=== PATIENT | female | born 1960 | race Caucasian/White ===

== ENCOUNTER 2018-05-28 20:09 | Inpatient (IN) ==
[2018-05-28] MEDS ORDERED: Lidocaine PF 1% Inj 30 ML Vial INFILTRATN ONE (20:43)
[2018-05-28] MEDS ORDERED: MethylPREDNISolone Sod Succinate Inj 125 MG/2 ML Vial IV.PUSH ONE (20:43)
--- NOTE | 2018-05-28 20:48 | ED ---
HPI General Chief Complaint: Extremity Injury, Lower Stated Complaint: Bilat Feet Lac Time Seen by Provider: 05/28/18 20:41 Source: patient and family () Mode of arrival: wheelchair Limitations: altered mental status History of Present Illness HPI narrative: 58-year-old female with history of lupus chronic pain syndrome hypertension depression COPD on supplemental oxygen and tobaccoism presents to the emergency department for generalized weakness with altered mental status. According to the he came from work this evening and found the on the floor she was awake with generalized weakness and then he assisted her up and into the bathroom where she had an additional fall sustaining a laceration to the anterior aspect of her left ankle. Patient reportedly takes pain medication for chronic pain syndrome. Patient reportedly has not taken additional medication beyond her baseline dosing. No alcohol consumption reportedly. No recent fever or chills. Patient has been having increasing frequency of falls. 2 's knowledge she has had no head injury. Patient here does not complain of head pain neck pain back pain abdominal pain pelvic pain but does complain of bilateral ankle and left foot pain. Patient is quite somnolent and only provide some history. states she has been having increasing weakness particularly of the bilateral upper extremities. MD complaint: Reports altered mental status, decreased responsiveness and weakness Onset (ago): minute(s) Timing confirmed by: spouse Severity: similar to previous episodes Consistency of symptoms: getting worse Context: Reports history of similar presentation, trauma (Bilateral ankles), diabetes and COPD; Denies alcohol abuse, drug abuse (is prescribed narcotic for pain management), change in medication, recent fever and seizure disorder Associated symptoms: Reports shortness of breath, weakness and difficulty walking; Denies chest pain, cough, diaphoresis, fever, chills, headaches, loss of appetite, nausea/vomiting, seizure and foul smelling urine Treatments prior to arrival: Reports other (none) Related Data Home Medications Medication Instructions Recorded Confirmed Zoloft 100 mg PO DAILY 05/28/18 05/28/18 gabapentin 100 mg PO HS 05/28/18 05/28/18 gabapentin 200 mg PO DAILY 05/28/18 05/28/18 lisinopril 10 mg PO DAILY 05/28/18 05/28/18 metformin 500 mg PO BID 05/28/18 05/28/18 oxycodone 30 mg PO Q4-6H PRN 05/28/18 05/28/18 oxycodone [OxyContin] 30 mg PO Q12H 05/28/18 05/28/18 Allergies Allergy/AdvReac Type Severity Reaction Status Date / Time penicillin G Allergy Severe UNKNOWN Verified 05/28/18 20:13 FROM CHILDHOOD Sulfa (Sulfonamide Allergy Unknown unknown Verified 05/28/18 20:13 Antibiotics) from childhood Review of Systems ROS: all other systems reviewed are negative [facility] Medical History Medical History Amputation of index finger (Acute) Diabetes (Acute) History of COPD (Acute) History of chronic back pain (Acute) History of hysterectomy (Acute) History of lupus (Acute) Knee injury (Acute) Shoulder injury (Acute) Social History Social History Substance History: No History of Abuse Second Hand Smoke Exposure: Yes Smoking Status: Current every day smoker Tobacco Type: Cigarettes How Often Do You Have a Drink Containing Alcohol: Never Recent Travel in [facility] within the Last 8 Weeks: No Recent Out of Country Travel within the Last 8 Weeks: No Immunization History Tetanus Immunization: Unsure Exam Narrative Exam Narrative: GENERAL: Well-developed well-nourished obese female somnolent with altered depressed mentation able however to answer questions appropriately and follow commands SKIN: Focused skin assessment warm/dry. HEAD: Atraumatic. Normocephalic. EYES: Pupils equal and round. No scleral icterus. No injection or drainage. ENT: No nasal bleeding or discharge. Mucous membranes pink and moist. NECK: Trachea midline. No JVD. CARDIOVASCULAR: Increased regular rate and rhythm. No murmur appreciated. RESPIRATORY: No accessory muscle use. Clear to auscultation. Breath sounds equal bilaterally. GASTROINTESTINAL: Abdomen soft, non-tender, nondistended. Hepatic and splenic margins not palpable. MUSCULOSKELETAL: No obvious deformities. No clubbing. No cyanosis. No edema. Bilateral ankle pain with mild soft tissue swelling no deformity dorsalis pedis pulses 2+ to palpation Bilaterally with capillary refill brisk and less than 2 seconds patient does however have a large left anterior ankle laceration 7.5 cm linear with visualization of the tendon but no tendon interruption distally foot is neurovascular tendon intact and patient has intact dorsi and plantar flexion. NEUROLOGICAL: Somnolent. No obvious cranial nerve deficits. Motor grossly within normal limits. Normal speech. PSYCHIATRIC: Appropriate mood and affect; insight and judgment normal. Course Initial Documented Vital Signs Temperature 98.8 F 05/28/18 20:27 Pulse Rate 102 H 05/28/18 20:27 Respiratory Rate 24 05/28/18 20:27 Blood Pressure 108/53 L 05/28/18 20:27 Pulse Oximetry 75 L 05/28/18 20:27 Last Documented Vital Signs Temperature 100.1 F H 05/29/18 03:25 Pulse Rate 78 05/29/18 03:25 Respiratory Rate 18 05/29/18 03:25 Blood Pressure 106/59 L 05/29/18 03:25 Pulse Oximetry 91 L 05/29/18 03:25 Procedures Intubation Time Out Performed: Yes Sedative: etomidate Mg Given: 20 Paralytic: succinylcholine Mg Given: 100 Laryngoscope: Jon Assist Device Used: fiber optic device ET Tube Size: 7.5 ET Tube Uncuffed: No Tube Secured Depth (cm): 22 Tube Secured Location: lips Tube Placement Confirmation: visualized tube passing through cords, equal breath sounds bilaterally, no breath sounds over epigastrium and confirmation by capnometry Patient Tolerated Procedure: well and no complications Intubation Complications: none Critical Care Time Critical Care Time: Yes Total Critical Care Time: 40 Attestation: Aggregate critical care time was 40 minutes. Time to perform other separately billable procedures was not included in the critical care time. My time did not include minutes spent treating any other patients simultaneously or on activities that did not directly contribute to the patient's treatment. The services I provided to this patient were to treat and/or prevent clinically significant deterioration that could result in: Respiratory arrest, cardiogenic shock, I provided critical care services requiring my management, as noted below: Chart data review, documentation time, medication orders and management, vital sign assessments/reviewing monitor data, ordering and reviewing lab tests, ordering and interpreting/reviewing x-rays and diagnostic studies, care of the patient and discussion of the patient with the admitting physicians. Medical Decision Making MDM Narrative Medical decision making narrative: 58-year-old female with COPD on supplemental oxygen tobaccoism hypertension diabetes anxiety depression and lupus resents with altered mentation and hypoxemia and history of chronic pain syndrome managed with opiates. Recent falls. Patient placed on school lunch monitor found to be hypoxemic placed on supplemental oxygen ABG obtained patient's GCS 14; imaging study ordered patient provide a bolus of normal saline at this point time patient appears able to protect her airway is chronically opiate dependent will defer Narcan at this time ABG ordered supplemental oxygen continued with dose of Solu-Medrol and DuoNeb nebulized treatment. Tetanus status updated. ABG obtained and patient has findings consistent with respiratory acidosis and hypoxemia as well as elevated carboxyhemoglobin this is discussed with the patient and the spouse. Patient does not want to be intubated discussed with spouse that her mentation may interfere with her decision-making but he states he would like to respect her wishes but is aware that should she not respond to alternative supplemental oxygenation that she will ultimately need intubation. EKG sinus tachycardia no acute ST elevation injury pattern or ectopy noted Patient identified to have mild leukocytosis with left shift acute renal insufficiency and troponin I is elevated at 0.77. Patient has had additional updraft treatments patient placed on BiPAP and identified to have decrease in pH with unchanged PCO2 and improved oxygenation with mild decrease in carboxyhemoglobin. Discussed with Dr Scott --accept for admission to [facility] ICU exacerbation copd with hypercapnea respiratory failure elevated troponin I cardiac risk tobacco abuse DM HTN acs/nstemi; ams hypercapnea opiate use possible abuse; acute renal insufficiency Have discussed that patient is essentially unchanged however spouse wanting to avoid intubation on 's behalf is aware that anticipate intubation inevitable ; will attempt updraft treatment and see how she responds a bit longer patient is somewhat more alert and converses intermittently single answer and short sentences with spouse. Repeat ABG ordered as tidal volumes have decreased concern for poor ventilation effort; ABG shows worsening respiratory acidosis at this time spouse is willing to acquiesce to intubation. Patient intubated with cuffed 7.5 endotracheal tube without complication. OG tube placed to intermittent low wall suction urinary catheter inserted patient sedated with propofol additional bolus of normal saline administered. Medical Screen Exam Complete: Yes Emergency Medical Condition: Yes Differential Diagnosis Differential Diagnosis: Altered mental status, hypoxemia, hypercapnia, carbon monoxide poisoning, opiate overdose, minor closed head injury, ICH, cervical spine sprain strain, central cord syndrome, sepsis, anemia, renal failure, ACS, RI, PE, ankle sprain strain subluxation dislocation fracture, neurovascular tendon injury, laceration, Medical Records Medical records reviewed: Yes I reviewed the patient's medical records. Lab Data Result diagrams: 05/28/18 20:50 05/28/18 20:50 Lab Results 05/28/18 05/28/18 05/28/18 Range/Units 20:50 20:50 20:50 CBC w Diff Slide review pending WBC 14.0 H (4.0-11.0) th/mm3 RBC 6.21 H (4.00-5.30) mil/mm3 Hgb 13.8 (11.6-15.3) gm/dL Hct 45.5 (35.0-46.0) % MCV 73.2 L (80.0-100.0) fL MCH 22.2 L (27.0-34.0) pg MCHC 30.3 L (32.0-36.0) % RDW 21.7 H (11.6-17.2) % Plt Count 402 (150-450) th/mm3 MPV 8.3 (7.0-11.0) fL Neut % (Auto) 83.2 H (16.0-70.0) % Lymph % (Auto) 6.9 L (9.0-44.0) % [place] % (Auto) 7.4 (0.0-8.0) % Eos % (Auto) 0.0 (0.0-4.0) % Baso % (Auto) 2.5 H (0.0-2.0) % Neut # (Auto) 11.6 H (1.8-7.7) th/mm3 Lymph # (Auto) 1.0 (1.0-4.8) th/mm3 [place] # (Auto) 1.0 H (0.0-0.9) th/mm3 Eos # (Auto) 0.0 (0.0-0.4) th/mm3 Baso # (Auto) 0.4 H (0.0-0.2) th/mm3 WBC Differential . Diff Scan Auto diff confirmed Differential Comment . Platelet Estimate Normal (Normal) Platelet Morphology Normal (Normal) Tear Drop Cells 1+ H (None) Ovalocytes 1+ H (None) PT 11.3 (9.8-11.6) sec INR 1.1 Ratio APTT 29.6 (24.3-30.1) sec Puncture Site Patient Temperature O2 Saturation (90-100) % ABG pH (7.380-7.420) ABG pCO2 (38-42) mmHg ABG pO2 (61-120) mmHg ABG HCO3 (22-26) mmol/L ABG O2 Content (12.0-20.0) Vol % ABG Base Excess (-2-2) mmol/L ABG Methemoglobin (0-2) % Connor Test Hemoglobin (12.0-16.0) G/DL Carboxyhemoglobin (0-4) % O2 Delivery Device Liter Flow L/M Vent Setting Inspired O2 % Critical Value Sodium 136 (136-145) meq/L Potassium 4.8 (3.5-5.1) meq/L Chloride 97 L (98-107) meq/L Carbon Dioxide 32.1 H (21.0-32.0) meq/L Anion Gap 7 (5-15) meq/L BUN 39 H (7-18) mg/dL Creatinine 2.40 H (0.50-1.00) mg/dL Estimated GFR 21 L (>89) mL/min POC Glucose (68-110) mg/dl Random Glucose 121 H (74-106) mg/dL Lactic Acid (0.4-2.0) mmol/L Calcium 8.3 L (8.5-10.1) mg/dL Magnesium 2.4 (1.5-2.5) mg/dL Total Bilirubin 0.5 (0.2-1.0) mg/dL AST 26 (15-37) U/L ALT 18 (10-53) U/L Alkaline Phosphatase 102 (45-117) U/L Ammonia (11-32) mcmol/L Total Creatine Kinase 142 (26-192) U/L Troponin I 0.77 H* (0.02-0.05) ng/mL Total Protein 7.4 (6.4-8.2) g/dL Albumin 3.2 L (3.4-5.0) g/dL TSH 0.612 (0.358-3.740) uIU/mL Urine Color (Yellw/Straw) Urine Clarity (Clear) Urine pH (5.0-8.5) Ur Specific [place] (1.002-1.035) Urine Protein (Neg-Trace) mg/dL Urine Glucose (UA) (Negative) mg/dL Urine Ketones (Negative) mg/dL Urine Occult Blood (Negative) Urine Nitrate (Negative) Urine Bilirubin (Negative) Urine Ictotest (Negative) Urine Urobilinogen (Less than 2) mg/dL Ur Leukocyte Esterase (Negative) Urine RBC (0-3) /hpf Urine WBC (0-5) /hpf Ur Squamous Epith Cells (0-5) /hpf Amorphous Sediment (None) /hpf Micro UA Comment Ur Microscopic Review Urine Culture Comments Urine Opiates Screen (Neg) Ur Barbiturates Screen (Neg) Ur Amphetamines Screen (Neg) U Benzodiazepines Scrn (Neg) Urine Cocaine Screen (Neg) U Cannabinoids Screen (Neg) Serum Alcohol Less than 3 (0-5) mg/dL 05/28/18 05/28/18 05/28/18 Range/Units 20:50 20:50 21:00 CBC w Diff WBC (4.0-11.0) th/mm3 RBC (4.00-5.30) mil/mm3 Hgb (11.6-15.3) gm/dL Hct (35.0-46.0) % MCV (80.0-100.0) fL MCH (27.0-34.0) pg MCHC (32.0-36.0) % RDW (11.6-17.2) % Plt Count (150-450) th/mm3 MPV (7.0-11.0) fL Neut % (Auto) (16.0-70.0) % Lymph % (Auto) (9.0-44.0) % [place] % (Auto) (0.0-8.0) % Eos % (Auto) (0.0-4.0) % Baso % (Auto) (0.0-2.0) % Neut # (Auto) (1.8-7.7) th/mm3 Lymph # (Auto) (1.0-4.8) th/mm3 [place] # (Auto) (0.0-0.9) th/mm3 Eos # (Auto) (0.0-0.4) th/mm3 Baso # (Auto) (0.0-0.2) th/mm3 WBC Differential Diff Scan Differential Comment Platelet Estimate (Normal) Platelet Morphology (Normal) Tear Drop Cells (None) Ovalocytes (None) PT (9.8-11.6) sec INR Ratio APTT (24.3-30.1) sec Puncture Site Right brachial Patient Temperature 98.6 O2 Saturation 77 L* (90-100) % ABG pH 7.25 L* (7.380-7.420) ABG pCO2 79 H* (38-42) mmHg ABG pO2 57 L* (61-120) mmHg ABG HCO3 34 H (22-26) mmol/L ABG O2 Content 14.4 (12.0-20.0) Vol % ABG Base Excess 6.8 H (-2-2) mmol/L ABG Methemoglobin 1.3 (0-2) % Connor Test Y Hemoglobin 13.4 (12.0-16.0) G/DL Carboxyhemoglobin 8.0 H* (0-4) % O2 Delivery Device Sm Liter Flow 6.00 L/M Vent Setting Inspired O2 % Critical Value Yes Sodium (136-145) meq/L Potassium (3.5-5.1) meq/L Chloride (98-107) meq/L Carbon Dioxide (21.0-32.0) meq/L Anion Gap (5-15) meq/L BUN (7-18) mg/dL Creatinine (0.50-1.00) mg/dL Estimated GFR (>89) mL/min POC Glucose (68-110) mg/dl Random Glucose (74-106) mg/dL Lactic Acid 1.2 (0.4-2.0) mmol/L Calcium (8.5-10.1) mg/dL Magnesium (1.5-2.5) mg/dL Total Bilirubin (0.2-1.0) mg/dL AST (15-37) U/L ALT (10-53) U/L Alkaline Phosphatase (45-117) U/L Ammonia 46 H (11-32) mcmol/L Total Creatine Kinase (26-192) U/L Troponin I (0.02-0.05) ng/mL Total Protein (6.4-8.2) g/dL Albumin (3.4-5.0) g/dL TSH (0.358-3.740) uIU/mL Urine Color (Yellw/Straw) Urine Clarity (Clear) Urine pH (5.0-8.5) Ur Specific [place] (1.002-1.035) Urine Protein (Neg-Trace) mg/dL Urine Glucose (UA) (Negative) mg/dL Urine Ketones (Negative) mg/dL Urine Occult Blood (Negative) Urine Nitrate (Negative) Urine Bilirubin (Negative) Urine Ictotest (Negative) Urine Urobilinogen (Less than 2) mg/dL Ur Leukocyte Esterase (Negative) Urine RBC (0-3) /hpf Urine WBC (0-5) /hpf Ur Squamous Epith Cells (0-5) /hpf Amorphous Sediment (None) /hpf Micro UA Comment Ur Microscopic Review Urine Culture Comments Urine Opiates Screen (Neg) Ur Barbiturates Screen (Neg) Ur Amphetamines Screen (Neg) U Benzodiazepines Scrn (Neg) Urine Cocaine Screen (Neg) U Cannabinoids Screen (Neg) Serum Alcohol (0-5) mg/dL 05/28/18 05/28/18 05/28/18 Range/Units 21:20 21:20 21:31 CBC w Diff WBC (4.0-11.0) th/mm3 RBC (4.00-5.30) mil/mm3 Hgb (11.6-15.3) gm/dL Hct (35.0-46.0) % MCV (80.0-100.0) fL MCH (27.0-34.0) pg MCHC (32.0-36.0) % RDW (11.6-17.2) % Plt Count (150-450) th/mm3 MPV (7.0-11.0) fL Neut % (Auto) (16.0-70.0) % Lymph % (Auto) (9.0-44.0) % [place] % (Auto) (0.0-8.0) % Eos % (Auto) (0.0-4.0) % Baso % (Auto) (0.0-2.0) % Neut # (Auto) (1.8-7.7) th/mm3 Lymph # (Auto) (1.0-4.8) th/mm3 [place] # (Auto) (0.0-0.9) th/mm3 Eos # (Auto) (0.0-0.4) th/mm3 Baso # (Auto) (0.0-0.2) th/mm3 WBC Differential Diff Scan Differential Comment Platelet Estimate (Normal) Platelet Morphology (Normal) Tear Drop Cells (None) Ovalocytes (None) PT (9.8-11.6) sec INR Ratio APTT (24.3-30.1) sec Puncture Site Patient Temperature O2 Saturation (90-100) % ABG pH (7.380-7.420) ABG pCO2 (38-42) mmHg ABG pO2 (61-120) mmHg ABG HCO3 (22-26) mmol/L ABG O2 Content (12.0-20.0) Vol % ABG Base Excess (-2-2) mmol/L ABG Methemoglobin (0-2) % Connor Test Hemoglobin (12.0-16.0) G/DL Carboxyhemoglobin (0-4) % O2 Delivery Device Liter Flow L/M Vent Setting Inspired O2 % Critical Value Sodium (136-145) meq/L Potassium (3.5-5.1) meq/L Chloride (98-107) meq/L Carbon Dioxide (21.0-32.0) meq/L Anion Gap (5-15) meq/L BUN (7-18) mg/dL Creatinine (0.50-1.00) mg/dL Estimated GFR (>89) mL/min POC Glucose 137 H (68-110) mg/dl Random Glucose (74-106) mg/dL Lactic Acid (0.4-2.0) mmol/L Calcium (8.5-10.1) mg/dL Magnesium (1.5-2.5) mg/dL Total Bilirubin (0.2-1.0) mg/dL AST (15-37) U/L ALT (10-53) U/L Alkaline Phosphatase (45-117) U/L Ammonia (11-32) mcmol/L Total Creatine Kinase (26-192) U/L Troponin I (0.02-0.05) ng/mL Total Protein (6.4-8.2) g/dL Albumin (3.4-5.0) g/dL TSH (0.358-3.740) uIU/mL Urine Color Yellow (Yellw/Straw) Urine Clarity Clear (Clear) Urine pH 5.0 (5.0-8.5) Ur Specific [place] Greater/equal 1.030 (1.002-1.035) Urine Protein Trace (Neg-Trace) mg/dL Urine Glucose (UA) Negative (Negative) mg/dL Urine Ketones Negative (Negative) mg/dL Urine Occult Blood Negative (Negative) Urine Nitrate Negative (Negative) Urine Bilirubin Negative (Negative) Urine Ictotest Negative (Negative) Urine Urobilinogen 1.0 (Less than 2) mg/dL Ur Leukocyte Esterase Negative (Negative) Urine RBC 0-3 (0-3) /hpf Urine WBC 0-5 (0-5) /hpf Ur Squamous Epith Cells 0-5 (0-5) /hpf Amorphous Sediment Moderate H (None) /hpf Micro UA Comment Culture not ind Ur Microscopic Review Microscopic reviewed Urine Culture Comments Culture not ind Urine Opiates Screen Pos H (Neg) Ur Barbiturates Screen Neg (Neg) Ur Amphetamines Screen Neg (Neg) U Benzodiazepines Scrn Neg (Neg) Urine Cocaine Screen Neg (Neg) U Cannabinoids Screen Neg (Neg) Serum Alcohol (0-5) mg/dL 05/28/18 05/28/18 05/28/18 Range/Units 23:00 23:30 23:30 CBC w Diff WBC (4.0-11.0) th/mm3 RBC (4.00-5.30) mil/mm3 Hgb (11.6-15.3) gm/dL Hct (35.0-46.0) % MCV (80.0-100.0) fL MCH (27.0-34.0) pg MCHC (32.0-36.0) % RDW (11.6-17.2) % Plt Count (150-450) th/mm3 MPV (7.0-11.0) fL Neut % (Auto) (16.0-70.0) % Lymph % (Auto) (9.0-44.0) % [place] % (Auto) (0.0-8.0) % Eos % (Auto) (0.0-4.0) % Baso % (Auto) (0.0-2.0) % Neut # (Auto) (1.8-7.7) th/mm3 Lymph # (Auto) (1.0-4.8) th/mm3 [place] # (Auto) (0.0-0.9) th/mm3 Eos # (Auto) (0.0-0.4) th/mm3 Baso # (Auto) (0.0-0.2) th/mm3 WBC Differential Diff Scan Differential Comment Platelet Estimate (Normal) Platelet Morphology (Normal) Tear Drop Cells (None) Ovalocytes (None) PT (9.8-11.6) sec INR Ratio APTT (24.3-30.1) sec Puncture Site Right brachial Patient Temperature 98.6 O2 Saturation 87 L* (90-100) % ABG pH 7.21 L* (7.380-7.420) ABG pCO2 78 H* (38-42) mmHg ABG pO2 81 (61-120) mmHg ABG HCO3 30 H (22-26) mmol/L ABG O2 Content 16.0 (12.0-20.0) Vol % ABG Base Excess 2.6 H (-2-2) mmol/L ABG Methemoglobin 1.2 (0-2) % Connor Test Y Hemoglobin 13.1 (12.0-16.0) G/DL Carboxyhemoglobin 7.1 H* (0-4) % O2 Delivery Device Bipap Liter Flow L/M Vent Setting Ipap12/epap5 Inspired O2 50 % Critical Value Yes Sodium (136-145) meq/L Potassium (3.5-5.1) meq/L Chloride (98-107) meq/L Carbon Dioxide (21.0-32.0) meq/L Anion Gap (5-15) meq/L BUN (7-18) mg/dL Creatinine (0.50-1.00) mg/dL Estimated GFR (>89) mL/min POC Glucose (68-110) mg/dl Random Glucose (74-106) mg/dL Lactic Acid 1.1 (0.4-2.0) mmol/L Calcium (8.5-10.1) mg/dL Magnesium (1.5-2.5) mg/dL Total Bilirubin (0.2-1.0) mg/dL AST (15-37) U/L ALT (10-53) U/L Alkaline Phosphatase (45-117) U/L Ammonia (11-32) mcmol/L Total Creatine Kinase (26-192) U/L Troponin I 0.68 H* (0.02-0.05) ng/mL Total Protein (6.4-8.2) g/dL Albumin (3.4-5.0) g/dL TSH (0.358-3.740) uIU/mL Urine Color (Yellw/Straw) Urine Clarity (Clear) Urine pH (5.0-8.5) Ur Specific [place] (1.002-1.035) Urine Protein (Neg-Trace) mg/dL Urine Glucose (UA) (Negative) mg/dL Urine Ketones (Negative) mg/dL Urine Occult Blood (Negative) Urine Nitrate (Negative) Urine Bilirubin (Negative) Urine Ictotest (Negative) Urine Urobilinogen (Less than 2) mg/dL Ur Leukocyte Esterase (Negative) Urine RBC (0-3) /hpf Urine WBC (0-5) /hpf Ur Squamous Epith Cells (0-5) /hpf Amorphous Sediment (None) /hpf Micro UA Comment Ur Microscopic Review Urine Culture Comments Urine Opiates Screen (Neg) Ur Barbiturates Screen (Neg) Ur Amphetamines Screen (Neg) U Benzodiazepines Scrn (Neg) Urine Cocaine Screen (Neg) U Cannabinoids Screen (Neg) Serum Alcohol (0-5) mg/dL 05/29/18 05/29/18 Range/Units 00:17 03:45 CBC w Diff WBC (4.0-11.0) th/mm3 RBC (4.00-5.30) mil/mm3 Hgb (11.6-15.3) gm/dL Hct (35.0-46.0) % MCV (80.0-100.0) fL MCH (27.0-34.0) pg MCHC (32.0-36.0) % RDW (11.6-17.2) % Plt Count (150-450) th/mm3 MPV (7.0-11.0) fL Neut % (Auto) (16.0-70.0) % Lymph % (Auto) (9.0-44.0) % [place] % (Auto) (0.0-8.0) % Eos % (Auto) (0.0-4.0) % Baso % (Auto) (0.0-2.0) % Neut # (Auto) (1.8-7.7) th/mm3 Lymph # (Auto) (1.0-4.8) th/mm3 [place] # (Auto) (0.0-0.9) th/mm3 Eos # (Auto) (0.0-0.4) th/mm3 Baso # (Auto) (0.0-0.2) th/mm3 WBC Differential Diff Scan Differential Comment Platelet Estimate (Normal) Platelet Morphology (Normal) Tear Drop Cells (None) Ovalocytes (None) PT (9.8-11.6) sec INR Ratio APTT (24.3-30.1) sec Puncture Site Left radial Right radial Patient Temperature 98.6 98.6 O2 Saturation 81 L* 87 L* (90-100) % ABG pH 7.14 L* 7.37 L (7.380-7.420) ABG pCO2 94 H* 47 H (38-42) mmHg ABG pO2 70 65 (61-120) mmHg ABG HCO3 30 H 27 H (22-26) mmol/L ABG O2 Content 15.1 16.1 (12.0-20.0) Vol % ABG Base Excess 1.9 1.7 (-2-2) mmol/L ABG Methemoglobin 1.2 1.4 (0-2) % Connor Test Y Present Hemoglobin 13.3 13.2 (12.0-16.0) G/DL Carboxyhemoglobin 6.4 H* 3.8 (0-4) % O2 Delivery Device Bipap Ventilator Liter Flow L/M Vent Setting Ipap12/epap5 Prvc/ac Inspired O2 50 100 % Critical Value Yes Yes Sodium (136-145) meq/L Potassium (3.5-5.1) meq/L Chloride (98-107) meq/L Carbon Dioxide (21.0-32.0) meq/L Anion Gap (5-15) meq/L BUN (7-18) mg/dL Creatinine (0.50-1.00) mg/dL Estimated GFR (>89) mL/min POC Glucose (68-110) mg/dl Random Glucose (74-106) mg/dL Lactic Acid (0.4-2.0) mmol/L Calcium (8.5-10.1) mg/dL Magnesium (1.5-2.5) mg/dL Total Bilirubin (0.2-1.0) mg/dL AST (15-37) U/L ALT (10-53) U/L Alkaline Phosphatase (45-117) U/L Ammonia (11-32) mcmol/L Total Creatine Kinase (26-192) U/L Troponin I (0.02-0.05) ng/mL Total Protein (6.4-8.2) g/dL Albumin (3.4-5.0) g/dL TSH (0.358-3.740) uIU/mL Urine Color (Yellw/Straw) Urine Clarity (Clear) Urine pH (5.0-8.5) Ur Specific [place] (1.002-1.035) Urine Protein (Neg-Trace) mg/dL Urine Glucose (UA) (Negative) mg/dL Urine Ketones (Negative) mg/dL Urine Occult Blood (Negative) Urine Nitrate (Negative) Urine Bilirubin (Negative) Urine Ictotest (Negative) Urine Urobilinogen (Less than 2) mg/dL Ur Leukocyte Esterase (Negative) Urine RBC (0-3) /hpf Urine WBC (0-5) /hpf Ur Squamous Epith Cells (0-5) /hpf Amorphous Sediment (None) /hpf Micro UA Comment Ur Microscopic Review Urine Culture Comments Urine Opiates Screen (Neg) Ur Barbiturates Screen (Neg) Ur Amphetamines Screen (Neg) U Benzodiazepines Scrn (Neg) Urine Cocaine Screen (Neg) U Cannabinoids Screen (Neg) Serum Alcohol (0-5) mg/dL Imaging Data My impression: Chest x-ray: right upper lobe infiltrate/mass with cardiomegaly mild cephalization no effusion Radiologist's impression: Cervical Spine CT 05/28/18 20:41 CONCLUSION: 1. Degenerative disc disease basically isolated C5-6 level as detailed above. 2. No fracture. Spinal canal and neural foramina appear to be adequate throughout without cord or nerve root compromise. Chest X-Ray 05/28/18 20:41 CONCLUSION: 3.5 cm possible mass in the right upper lung. Prominence in interstitial markings which may represent underlying pulmonary venous hypertension or underlying interstitial disease. Cardiomegaly. Head CT 05/28/18 20:41 CONCLUSION: Negative exam. No acute intracranial process, trauma or fracture. . Ankle X-Ray 05/28/18 20:43 CONCLUSION: No acute fracture Ankle X-Ray 05/28/18 20:43 CONCLUSION: No evidence of recent bony injury. Diffuse soft tissue prominence. Foot X-Ray 05/28/18 20:43 CONCLUSION: 1. Soft tissue defect/laceration anterior to the ankle. 2. Osseous structures are intact. Chest X-Ray 05/29/18 00:50 CONCLUSION: ET tube and NG tube in good position. Cardiomegaly. Diffuse interstitial disease. Focal density in the right upper lung. Discharge Plan Discharge Disposition Patient Disposition: 30 Still Patient Discharge Condition Condition: Fair Discharge Details Diagnosis: Respiratory failure with hypoxia and hypercapnia, COPD exacerbation, Altered mental status, Acute renal failure (ARF), ACS (acute coronary syndrome), Laceration of ankle Physicians Team ED Provider: Susie Sepulveda Primary Care Provider: Oren Robbins Attending Provider: Varun Scott Interventions Interventions: ED Discharge Assessment Last Done: 05/29/18 02:32 Vital Signs Last Done: 05/28/18 20:42 Status ED Status: Left Department Discharge Information Discharge Date/Time: 05/29/18 02:34
[2018-05-28] MEDS ORDERED: Tetanus/Diphtheria Toxoid Adult Vaccine Inj 0.5 ML Vial IM ONE (20:53)
[2018-05-28] MEDS: Sod Chloride 0.9% Inj 1,000 ML IV.CONT SCH (21:00)
[2018-05-28 21:09] LABS: Baso # (Auto) 0.4 th/mm3 (0.0-0.2); Baso % (Auto) 2.5 % (0.0-2.0); Hematocrit 45.5 % (35.0-46.0); Hemoglobin 13.8 gm/dL (11.6-15.3); Lymph % (Auto) 6.9 % (9.0-44.0); Mean Corpuscular Hemoglobin 22.2 pg (27.0-34.0); Mean Corpuscular Volume 73.2 fL (80.0-100.0); Mean Platelet Volume 8.3 fL (7.0-11.0); Mono % (Auto) 7.4 % (0.0-8.0); Neut # (Auto) 11.6 th/mm3 (1.8-7.7); Neut % (Auto) 83.2 % (16.0-70.0); Platelet Count 402 th/mm3 (150-450); Red Blood Count 6.21 mil/mm3 (4.00-5.30); Red Cell Distribution Width 21.7 % (11.6-17.2)
[2018-05-28 21:10] LABS: ABG Base Excess 6.8 mmol/L (-2-2); ABG PCO2 79 mmHg (38-42); ABG PO2 57 mmHg (61-120)
[2018-05-28 21:13] LABS: Chloride 97 meq/L (98-107); Potassium 4.8 meq/L (3.5-5.1); Sodium 136 meq/L (136-145)
[2018-05-28 21:14] LABS: Mean Corpuscular HGB Conc 30.3 % (32.0-36.0)
[2018-05-28 21:16] LABS: Albumin 3.2 g/dL (3.4-5.0); Anion Gap 7 meq/L (5-15); Calcium 8.3 mg/dL (8.5-10.1); Carbon Dioxide 32.1 meq/L (21.0-32.0); Glucose,Random 121 mg/dL (74-106); Magnesium 2.4 mg/dL (1.5-2.5)
[2018-05-28 21:17] LABS: Blood Urea Nitrogen 39 mg/dL (7-18)
[2018-05-28 21:18] LABS: Activated Partial Thrombo Time 29.6 sec (24.3-30.1); INR 1.1 Ratio; Prothrombin Time 11.3 sec (9.8-11.6)
[2018-05-28 21:19] LABS: Alanine Aminotransferase 18 U/L (10-53); Aspartate Aminotransferase 26 U/L (15-37); Glomerular Filtration Rate 21 mL/min (>89)
[2018-05-28 21:21] LABS: Total Protein 7.4 g/dL (6.4-8.2)
[2018-05-28 21:22] LABS: Alkaline Phosphatase 102 U/L (45-117); Creatine Kinase 142 U/L (26-192)
[2018-05-28] MEDS ORDERED: Lidocaine 1% Inj 50 ML Vial INFILTRATN ONE (21:27)
[2018-05-28] MEDS: Sod Chloride 0.9% Inj 1,000 ML IV.SIG SCH ×4 (21:28→23:17)
[2018-05-28 21:30] LABS: Clarity,Urine Clear (Clear); Color,Urine Yellow (Yellw/Straw); Glucose,Urine (UA) Negative (Negative); Leukocyte Esterase,Urine Negative (Negative); Nitrite,Urine Negative (Negative); Specific Gravity,Urine Greater/Equal 1.030 (1.002-1.035)
[2018-05-28 21:30] LABS: Thyroid Stimulating Hormone 0.612 uIU/mL (0.358-3.740)
[2018-05-28 21:31] LABS: Ovalocytes 1+; Platelet Estimate Normal (Normal); Platelet Morphology Normal (Normal); Tear Drop Cells 1+
[2018-05-28 21:33] LABS: Troponin I 0.77 ng/mL (0.02-0.05)
[2018-05-28 21:35] LABS: Bilirubin,Urine Negative (Negative); Ictotest,Urine Negative (Negative)
[2018-05-28 21:36] LABS: Amorphous Sediment,Urine Moderate /hpf; RBC,Urine 0-3 /hpf (0-3); Squamous Epithelial Cell,Urine 0-5 /hpf (0-5); WBC,Urine 0-5 /hpf (0-5)
[2018-05-28] MEDS ORDERED: Aspirin 300 MG Supp RECTAL ONE (21:39)
[2018-05-28 21:47] LABS: Amphetamine Screen,Urine Neg (Neg)
[2018-05-28 21:48] LABS: Barbiturate Screen,Urine Neg (Neg)
[2018-05-28 21:51] LABS: Cannabinoid Screen,Urine Neg (Neg)
[2018-05-28 21:52] LABS: Cocaine Screen,Urine Neg (Neg)
[2018-05-28 22:02] LABS: Opiate Screen,Urine Pos (Neg)
--- NOTE | 2018-05-28 22:07 | CT ---
EXAM DATE: 05/28/2018 9:32 PM EDT AGE/SEX: 58 years / Female INDICATIONS: Trauma. Altered mental status. Fall. CLINICAL DATA: This is the patient's initial encounter. Patient reports that signs and symptoms have been present for 1 day and indicates a pain score of 5/10. MEDICAL/SURGICAL HISTORY: Chronic obstructive pulmonary disease. None. RADIATION DOSE: 37.48 CTDI (mGy) ; Patient motion COMPARISON: No prior exams available for comparison. TECHNIQUE: CT of the head without contrast. Using automated exposure control and adjustment of the mA and/or kV according to patient size, radiation dose was kept as low as reasonably achievable to ob tain optimal diagnostic quality images. DICOM format image data is available electronically for revi ew and comparison. FINDINGS: Cerebrum: The ventricles are normal for age. No evidence of midline shift, mass lesion, hemorrhage or acute infarction. No extraaxial fluid collections are seen. Posterior Fossa: The cerebellum and brainstem are intact. The 4th ventricle is midline. The cerebe llopontine angle is unremarkable. Extracranial: The visualized portion of the orbits is intact. Skull: The calvaria is intact. No evidence of skull fracture. CONCLUSION: Negative exam. No acute intracranial process, trauma or fracture. . Electronically signed by: Elder Pond MD 05/28/2018 10:06 PM EDT
--- NOTE | 2018-05-28 22:12 | CT ---
EXAM DATE: 05/28/2018 9:32 PM EDT AGE/SEX: 58 years / Female INDICATIONS: Trauma. Fall. CLINICAL DATA: This is the patient's initial encounter. Patient reports that signs and symptoms have been present for 1 day and indicates a pain score of 5/10. MEDICAL/SURGICAL HISTORY: Chronic obstructive pulmonary disease. None. RADIATION DOSE: 26.52 CTDI (mGy) COMPARISON: No prior exams available for comparison. TECHNIQUE: Contiguous axial images were obtained using helical multirow detector technique. The vol umetric data was post-processed with multiplanar reconstruction in oblique axial, sagittal, and coron al planes. Using automated exposure control and adjustment of the mA and/or kV according to patient s ize, radiation dose was kept as low as reasonably achievable to obtain optimal diagnostic quality emerita ges. DICOM format image data is available electronically for review and comparison. FINDINGS: Sagittal and coronal reconstruction show degenerative disc disease predominantly at C5-6 with some lo ss of disc height and small marginal spurs. Predominantly directed anteriorly with small posterior co mponents right paracentral which encroach on the anterior epidural space but do not result in signifi cant spinal stenosis. Vertebral body heights are maintained without fracture or listhesis. C2-3: The bony spinal canal is normal in size. No evidence of disc bulge or herniation. The neural foramina are bilaterally patent. C3-4: The bony spinal canal is normal in size. No evidence of disc bulge or herniation. The neural foramina are bilaterally patent. C4-5: The bony spinal canal is normal in size. No evidence of disc bulge or herniation. The neural foramina are bilaterally patent. C5-6: Mild uncovertebral ridging with a right posterior component encroaching on the anterior epidur al space. Spinal canal and neural foramina remain adequate, however C6-7: The bony spinal canal is normal in size. No evidence of disc bulge or herniation. The neural foramina are bilaterally patent. C7-T1: The bony spinal canal is normal in size. No evidence of disc bulge or herniation. The neura l foramina are bilaterally patent. CONCLUSION: 1. Degenerative disc disease basically isolated C5-6 level as detailed above. 2. No fracture. Spinal canal and neural foramina appear to be adequate throughout without cord or ne rve root compromise. Electronically signed by: Elder Pond MD 05/28/2018 10:11 PM EDT
[2018-05-28] MEDS ORDERED: Sod Chloride 0.9% Inj 1,000 ML IV.SIG SCH (22:45)
--- NOTE | 2018-05-28 22:46 | XR ---
EXAM DATE: 05/28/2018 8:43 PM EDT AGE/SEX: 58 years / Female INDICATIONS: Laceration to anterior left ankle status post fall. CLINICAL DATA: This is the patient's initial encounter. Patient reports that signs and symptoms have been present for 1 day and indicates a pain score of Nonresponsive. MEDICAL/SURGICAL HISTORY: Non-responsive. Non-responsive. COMPARISON: [facility], FOOT LIMITED LEFT 2V, 05/28/2018. . FINDINGS: Bony structures are intact and in normal alignment. Joints are intact without dislocation or signifi cant arthropathy. Osseous density is normal. Soft tissues are unremarkable. No radiopaque foreign bodies seen. CONCLUSION: No acute fracture Electronically signed by: Elder Pond MD 05/28/2018 10:45 PM EDT
--- NOTE | 2018-05-28 22:47 | ED ---
Procedures Laceration Laceration 1: Site: lower extremity Side (If applicable): left Size (cm): 8 Description: linear Depth: simple, single layer (tendon exposed; no tendon laceration) Anesthetic used: lidocaine 1% Anesthesia technique:: local infiltration Amount (mL): 10 Pre-repair:: wound explored and irrigated extensively Skin layer closed with: prolene Size (cm): 3-0 Number of sutures:: 12 Technique:: simple, interrupted (7) and other (5 vertical mattress sutures )
--- NOTE | 2018-05-28 22:47 | XR ---
EXAM DATE: 05/28/2018 8:43 PM EDT AGE/SEX: 58 years / Female INDICATIONS: Right ankle pain status post fall. CLINICAL DATA: This is the patient's initial encounter. Patient reports that signs and symptoms have been present for 1 day and indicates a pain score of Nonresponsive. MEDICAL/SURGICAL HISTORY: Non-responsive. Non-responsive. COMPARISON: No prior exams available for comparison. FINDINGS: Bony structures are intact and in normal alignment. Joints are intact without dislocation or signifi cant arthropathy. Osseous density is normal. Diffuse soft tissue prominence. No radiopaque foreign bodies seen. CONCLUSION: No evidence of recent bony injury. Diffuse soft tissue prominence. Electronically signed by: Elder Pond MD 05/28/2018 10:45 PM EDT
--- NOTE | 2018-05-28 23:03 | XR ---
EXAM DATE: 05/28/2018 8:41 PM EDT AGE/SEX: 58 years / Female INDICATIONS: Shortness of breath status post fall. CLINICAL DATA: This is the patient's initial encounter. Patient reports that signs and symptoms have been present for 1 day and indicates a pain score of Nonresponsive. MEDICAL/SURGICAL HISTORY: Non-responsive. Non-responsive. COMPARISON: No prior exams available for comparison. FINDINGS: The heart size is enlarged. There is a 3.5 cm suspected mass in the right upper lung. There is diffus e prominence of interstitium. No effusion is seen. CONCLUSION: 3.5 cm possible mass in the right upper lung. Prominence in interstitial markings which may represent underlying pulmonary venous hypertension or u nderlying interstitial disease. Cardiomegaly. Electronically signed by: Ian Brewer MD 05/28/2018 11:01 PM EDT
--- NOTE | 2018-05-28 23:07 | XR ---
EXAM DATE: 05/28/2018 8:43 PM EDT AGE/SEX: 58 years / Female INDICATIONS: Laceration to proximal left foot on dorsal surface status post fall. CLINICAL DATA: This is the patient's initial encounter. Patient reports that signs and symptoms have been present for 1 day and indicates a pain score of Nonresponsive. MEDICAL/SURGICAL HISTORY: Non-responsive. Non-responsive. COMPARISON: [facility], ANKLE COMPLETE LEFT MIN 3V, 05/28/2018. . FINDINGS: Bony structures are intact and in normal alignment. Osseous density is normal. Soft tissue defect marcy ntified tissues anterior to the ankle. No radiopaque foreign bodies seen. CONCLUSION: 1. Soft tissue defect/laceration anterior to the ankle. 2. Osseous structures are intact. Electronically signed by: Elder Pond MD 05/28/2018 11:06 PM EDT
[2018-05-28 23:14] LABS: ABG Base Excess 2.6 mmol/L (-2-2); ABG PCO2 78 mmHg (38-42); ABG PO2 81 mmHg (61-120)
[2018-05-28] MEDS ORDERED: Heparin Drip 25,000 UNIT/250 ML BAG IV.CONT PRN (23:15)
[2018-05-28] MEDS ORDERED: Heparin 10,000 UNITS/10 ML Vial (for IV use) IV.PUSH STA (23:15)
--- NOTE | 2018-05-28 23:21 | P.HPCC ---
History of Present Illness Primary Care Physician: Oren Robbins MD History of Present Illness: 58-year-old female with history of lupus, chronic pain syndrome, hypertension, depression, COPD on supplemental oxygen and tobaccoism, presents for an evaluation of generalized weakness with altered mental status. According to the he came from work this evening and found the on the floor. She was awake with generalized weakness and then he assisted her up and into the bathroom where she had an additional fall sustaining a laceration to the anterior aspect of her left ankle. Patient reportedly takes pain medication for chronic pain syndrome. Patient reportedly has not taken additional medication beyond her baseline dosing. No alcohol consumption reportedly. No recent fever or chills. Patient has been having increasing frequency of falls. 2 's knowledge she has had no head injury. Patient in the emergency department at [place] did not complain of head pain neck pain back pain abdominal pain pelvic pain complain of bilateral ankle and left foot pain. She was initially placed on BiPAP, however due to worsening respiratory acidosis she was intubated by ED attending for respiratory failure. Review of Systems unobtainable due to endotracheal tube PMFSH - History History Provided By: Patient - Medical History Medical History: Medical History (Last Updated 05/28/18 @ 23:50 by Prachi Bledsoe RN) Amputation of index finger Diabetes History of COPD History of chronic back pain History of hysterectomy History of lupus Knee injury Shoulder injury - Tobacco History Second Hand Smoke Exposure: Yes Tobacco Use In Past 30 Days: Yes Smoking Status: Current every day smoker Tobacco Type: Cigarettes - Alcohol History How Often Do You Have a Drink Containing Alcohol: Never - Substance Use History Substance History: No History of Abuse - Travel History Recent Travel in the [place] Within the Last 8 Weeks: No Recent Travel Out of the Country Within the Last 8 Weeks: No - Immunization History Tetanus Immunization: Unsure Medications and Allergies Active Medications: Current Medications Acetaminophen (Tylenol) 650 mg PO Q6H PRN PRN Reason: PAIN 1-10 AND/OR FEVER >101F Al Hydroxide/Mg Hydroxide (Milk Of Magnesia Liq) 30 ml PO Q12H PRN PRN Reason: Mild Constipation Albuterol (Duoneb Neb (Prn)) 1 ampul NEB Q2HR NEB PRN PRN Reason: WHEEZING Albuterol (Duoneb Neb (Billie)) 1 ampul NEB Q4HR NEB BILLIE Last Admin: 05/29/18 04:33 Dose: 1 ampul Bisacodyl (Dulcolax Supp) 10 mg RECTAL DAILY PRN PRN Reason: SEVERE CONSITIPATION Chlorhexidine Gluconate (Chlorhexidine 2% Cloth) 3 pack TOPICAL DAILY@0400 PRN PRN Reason: Extra cloth needed Stop: 06/03/18 03:59 Chlorhexidine Gluconate (Chlorhexidine 2% Cloth) 3 pack TOPICAL DAILY@0400 BILLIE Stop: 06/03/18 03:59 Last Admin: 05/29/18 03:55 Dose: 3 pack Famotidine (Pepcid Pf Inj) 20 mg IV.PUSH Q12HR BILLIE Gabapentin (Neurontin) 100 mg PO HS BILLIE Gabapentin (Neurontin) 200 mg PO DAILY BILLIE Heparin Sodium (Porcine) (Heparin Inj) 5,000 units SQ Q8H [facility] Last Admin: 05/29/18 02:45 Dose: Not Given Sodium Chloride (Ns Inj) 1,000 mls @ 125 mls/hr IV.CONT .Q8H [facility] Last Admin: 05/28/18 21:00 Dose: 125 mls/hr Sodium Chloride (Ns Inj) 1,000 mls @ 0 mls/hr IV.SIG BOLUS [facility] Last Infusion: 05/28/18 23:11 Dose: Infused Sodium Chloride (Ns Inj) 1,000 mls @ 0 mls/hr IV.SIG BOLUS BILLIE Sodium Chloride (Ns Inj) 1,000 mls @ 0 mls/hr IV.SIG BOLUS [facility] Last Admin: 05/28/18 23:17 Dose: 999 mls/hr Propofol (Diprivan 1000 Mg/100 Ml Inj) 1,000 mg in 100 mls @ 2.94 mls/hr IV.CONT TITRATE PRN; Protocol PRN Reason: Per Protocol Last Titration: 05/29/18 01:23 Dose: 10 mcg/kg/min, 5.88 mls/hr Sodium Chloride (Ns Inj) 1,000 mls @ 0 mls/hr IV.SIG BOLUS [facility] Last Admin: 05/29/18 01:21 Dose: 999 mls/hr Dopamine HCl/Dextrose (Dopamine 800 Mg/500 Ml Premix) 800 mg in 500 mls @ 11.025 mls/hr IV.CONT TITRATE PRN; Protocol PRN Reason: Per Protocol Lactulose (Lactulose Liq) 30 ml PO DAILY PRN PRN Reason: SEVERE CONSITIPATION Lisinopril (Prinivil) 10 mg PO DAILY [facility] Methylprednisolone Sodium Succinate (Solumedrol Inj) 40 mg IV.PUSH Q8HR [facility] Last Admin: 05/29/18 03:54 Dose: 40 mg Ondansetron HCl (Zofran Inj) 4 mg IV.PUSH Q6H PRN PRN Reason: NAUSEA OR VOMITING Oxycodone HCl (Roxicodone) 30 mg PO Q4H PRN PRN Reason: BREAKTHROUGH PAIN Oxycodone HCl (Oxycontin Cr) 30 mg PO BID [facility] Senna/Docusate Sodium (Thao-Colace) 1 tab PO BID [facility] Sennosides (Senokot) 17.2 mg PO Q12H PRN PRN Reason: Moderate Constipation Sertraline HCl (Zoloft) 100 mg PO DAILY [facility] Sodium Chloride (Ns Flush) 2 ml IV.FLUSH PRN PRN PRN Reason: FLUSH AFTER USING IV ACCESS Sodium Chloride (Ns Flush) 2 ml IV.FLUSH BID [facility] Sodium Chloride (Ns Flush) 2 ml IV.FLUSH PRN PRN PRN Reason: FLUSH AFTER USING IV ACCESS Terbutaline Sulfate (Brethine Inj) 1 mg SQ ONCE PRN PRN Reason: Extravasation Allergies Allergy/AdvReac Type Severity Reaction Status Date / Time penicillin G Allergy Severe UNKNOWN Verified 05/28/18 20:13 FROM CHILDHOOD Sulfa (Sulfonamide Allergy Unknown unknown Verified 05/28/18 20:13 Antibiotics) from childhood Home Medications Medication Instructions Recorded Confirmed Type Zoloft 100 mg PO DAILY 05/28/18 05/28/18 History gabapentin 100 mg PO HS 05/28/18 05/28/18 History gabapentin 200 mg PO DAILY 05/28/18 05/28/18 History lisinopril 10 mg PO DAILY 05/28/18 05/28/18 History metformin 500 mg PO BID 05/28/18 05/28/18 History oxycodone 30 mg PO Q4-6H PRN 05/28/18 05/28/18 History oxycodone [OxyContin] 30 mg PO Q12H 05/28/18 05/28/18 History Results - Labs CBC & Chem 7: 05/29/18 04:01 05/28/18 20:50 Labs: Short CBC 05/28/18 Range/Units 20:50 WBC 14.0 H (4.0-11.0) th/mm3 Hgb 13.8 (11.6-15.3) gm/dL Hct 45.5 (35.0-46.0) % Plt Count 402 (150-450) th/mm3 [facility] 05/28/18 20:50 Sodium 136 Potassium 4.8 Chloride 97 L Carbon Dioxide 32.1 H BUN 39 H Creatinine 2.40 H Calcium 8.3 L Cardiac Enzymes 05/28/18 Range/Units 20:50 Total Creatine Kinase 142 (26-192) U/L Troponin I 0.77 H* (0.02-0.05) ng/mL Liver Function 05/28/18 Range/Units 20:50 Total Bilirubin 0.5 (0.2-1.0) mg/dL AST 26 (15-37) U/L ALT 18 (10-53) U/L Alkaline Phosphatase 102 (45-117) U/L Albumin 3.2 L (3.4-5.0) g/dL Urine 05/28/18 Range/Units 21:20 Urine Color Yellow (Yellw/Straw) Urine Clarity Clear (Clear) Urine pH 5.0 (5.0-8.5) Ur Specific [place] Greater/equal 1.030 (1.002-1.035) Urine Protein Trace (Neg-Trace) mg/dL Urine Glucose (UA) Negative (Negative) mg/dL - Imaging Impressions Cervical Spine CT 05/28/18 20:41 CONCLUSION: 1. Degenerative disc disease basically isolated C5-6 level as detailed above. 2. No fracture. Spinal canal and neural foramina appear to be adequate throughout without cord or nerve root compromise. Chest X-Ray 05/28/18 20:41 CONCLUSION: 3.5 cm possible mass in the right upper lung. Prominence in interstitial markings which may represent underlying pulmonary venous hypertension or underlying interstitial disease. Cardiomegaly. Head CT 05/28/18 20:41 CONCLUSION: Negative exam. No acute intracranial process, trauma or fracture. . Ankle X-Ray 05/28/18 20:43 CONCLUSION: No acute fracture Ankle X-Ray 05/28/18 20:43 CONCLUSION: No evidence of recent bony injury. Diffuse soft tissue prominence. Foot X-Ray 05/28/18 20:43 CONCLUSION: 1. Soft tissue defect/laceration anterior to the ankle. 2. Osseous structures are intact. Exam Vital signs: Vital Signs 05/28/18 20:27 05/28/18 20:42 05/28/18 20:49 Temperature 98.8 F Pulse Rate 102 H 103 H 106 H Respiratory Rate 24 30 H 30 H Blood Pressure 108/53 L 96/54 L 96/54 L Pulse Oximetry 75 L 90 L 90 L 05/28/18 21:10 05/28/18 21:30 05/28/18 21:49 Temperature Pulse Rate 103 H 100 H 103 H Respiratory Rate 30 H 26 H Blood Pressure 84/53 L Pulse Oximetry 88 L 90 L 05/28/18 22:00 05/28/18 22:28 05/28/18 22:40 Temperature Pulse Rate 99 H 86 Respiratory Rate 28 H 15 Blood Pressure 88/55 L 105/62 Pulse Oximetry 89 L 94 L Intake & Output 05/28/18 05/28/18 05/29/18 06:59 18:59 06:59 Intake Total 3000 / 3000 Balance 3000 / 3000 Weight 98 kg Intake: IV 3000 / 3000 NS Inj 1,000 ML @ Wide Open IV. 3000 / 3000 SIG BOLUS BILLIE Rx#:[id number] - Constitutional moderate distress - Routine HEENT Exam Head: Present: normocephalic, atraumatic Eye: Present: PERRL, normal accommodation ENT: Present: mucous membranes moist - Routine Neck Exam Present: supple. Absent: JVD, carotid bruit - Routine Respiratory Exam Present: patient mechanically ventilated, rhonchi, wheezes. Absent: stridor, crackles - Routine Cardiovascular Exam Present: RRR, S1, S2 - Routine Abdominal Exam Present: soft, normoactive bowel sounds. Absent: tenderness, distended - Routine Extremities Exam Absent: cyanosis, clubbing - Routine Skin Exam Absent: cyanosis, erythema - Routine Neurological Exam Present: moving all extremities Septic Shock Reassessment Septic shock perfusion: reassessment completed Caprini VTE Risk Assessment Caprini VTE Risk Assessment: Moderate/High Risk (score >= 2) Caprini Risk Assessment Model: Point Value = 1 Point Value = 2 Point Value = 3 Point Value = 5 Age 41-60 Minor surgery BMI > 25 kg/m2 Swollen legs Varicose veins or History of unexplained or recurrent spontaneous Oral contraceptives or hormone replacement Sepsis (< 1 month) Serious lung disease, including pneumonia (< 1 month) Abnormal pulmonary function Acute myocardial infarction Congestive heart failure (< 1 month) History of inflammatory bowel disease Medical patient at bed rest Age 61-74 Arthroscopic surgery Major open surgery (> 45 min) Laparoscopic surgery (> 45 min) Malignancy Confined to bed (> 72 hours) Immobilizing plaster cast Central venous access Age >= 75 History of VTE Family history of VTE Factor V Leiden Prothrombin [id number] Lupus anticoagulant Anticardiolipin antibodies Elevated serum homocysteine Heparin-induced thrombocytopenia Other congenital or acquired thrombophilia Stroke (< 1 month) Elective arthroplasty Hip, pelvis, or leg fracture Acute spinal cord injury (< 1 month) Prophylaxis Regimen: Total Risk Factor Score Risk Level Prophylaxis Regimen 0-1 Low Early ambulation 2 Moderate Order ONE of the following: *Sequential Compression Device (SCD) *Heparin 5000 units SQ BID 3-4 Higher Order ONE of the following medications: *Heparin 5000 units SQ TID *Enoxaparin/Lovenox 40 mg SQ daily (WT < 150 kg, CrCl > 30 mL/min) *Enoxaparin/Lovenox 30 mg SQ daily (WT < 150 kg, CrCl > 10-29 mL/min) *Enoxaparin/Lovenox 30 mg SQ BID (WT < 150 kg, CrCl > 30 mL/min) AND/OR *Sequential Compression Device (SCD) 5 or more Highest Order ONE of the following medications: *Heparin 5000 units SQ TID (Preferred with Epidurals) *Enoxaparin/Lovenox 40 mg SQ daily (WT < 150 kg, CrCl > 30 mL/min) *Enoxaparin/Lovenox 30 mg SQ daily (WT < 150 kg, CrCl > 10-29 mL/min) *Enoxaparin/Lovenox 30 mg SQ BID (WT < 150 kg, CrCl > 30 mL/min) AND *Sequential Compression Device (SCD) Assessment and Plan - Assessment and Plan Plan: Respiratory failure -COPD exacerbation -DuoNeb scheduled and as needed -IV antibiotics -IV steroids -Vent bundle Diabetes -Insulin sliding scale -Glucerna tube feeds -Levemir daily Chronic back pain -Gabapentin -Home meds as needed DVT GI prophylaxis -Teds SCDs -Subcu heparin -Pepcid 35 minutes of critical care
[2018-05-28] MEDS ORDERED: Bisacodyl 10 MG Supp RECTAL PRN (23:40)
[2018-05-28] MEDS ORDERED: Acetaminophen 325 MG Tablet PO PRN (23:40)
[2018-05-29] MEDS ORDERED: oxyCODONE 10 MG Controlled Release Tablet PO SCH
[2018-05-29 00:29] LABS: ABG Base Excess 1.9 mmol/L (-2-2); ABG PCO2 94 mmHg (38-42); ABG PO2 70 mmHg (61-120)
[2018-05-29] MEDS ORDERED: Succinylcholine Inj 100 MG/5 ML Syringe IV.PUSH ONE (00:33)
[2018-05-29] MEDS ORDERED: Etomidate Inj 20 MG/10 ML Ampul IV.PUSH ONE ×2 (00:33→00:37)
[2018-05-29] MEDS ORDERED: Propofol 1000 mg/100 ml Inj 1,000 MG/100 ML BOTTLE ONE (00:37)
[2018-05-29] MEDS ORDERED: Midazolam Inj 5 MG/ML 1 ML Vial IV.PUSH ONE ×2 (00:56→01:51)
[2018-05-29] MEDS ORDERED: Sod Chloride 0.9% Inj 1,000 ML IV.SIG SCH (01:00)
[2018-05-29] MEDS: Propofol 1000 mg/100 ml Inj 1,000 MG/100 ML BOTTLE IV.CONT PRN ×6 (01:19→21:58)
[2018-05-29] MEDS ORDERED: Pantoprazole Inj 40 MG Vial IV.PUSH ONE (01:36)
[2018-05-29] MEDS ORDERED: fentaNYL 10 mcg/mL Premix Drip 2,500 MCG/250 ML BAG IV.SIG PRN (01:36)
--- NOTE | 2018-05-29 01:39 | XR ---
EXAM DATE: 05/29/2018 12:50 AM EDT AGE/SEX: 58 years / Female INDICATIONS: Status post ET tube placement. CLINICAL DATA: This is the patient's subsequent encounter. Patient reports that signs and symptoms h ave been present for 1 day and indicates a pain score of Nonresponsive. MEDICAL/SURGICAL HISTORY: Non-responsive. Non-responsive. COMPARISON: [facility], CHEST 1V SINGLE AP, 05/28/2018. . FINDINGS: The ET tube and NG tube are well placed. The patient is rotated towards the right. The heart size is enlarged. Lungs demonstrate diffuse increased interstitial markings. Again noted is the density in th e right upper lung. CONCLUSION: ET tube and NG tube in good position. Cardiomegaly. Diffuse interstitial disease. Focal density in the right upper lung. Electronically signed by: Ian Brewer MD 05/29/2018 1:38 AM EDT
[2018-05-29] MEDS ORDERED: DOPamine 800 MG/500 ML Premix 800 MG/500 ML PLAST..BAG IV.CONT PRN (01:40)
[2018-05-29] MEDS: Heparin - SQ 10,000 UNITS/ML Vial SQ SCH ×3 (02:45→15:37)
[2018-05-29] MEDS: MethylPREDNISolone Sod Succinate Inj 40 MG/ML Vial IV.PUSH SCH ×4 (03:54→21:56)
[2018-05-29] MEDS: Chlorhexidine Gluconate 2% 1 Pack (2 Cloths) TOPICAL SCH (03:55)
[2018-05-29] MEDS ORDERED: Chlorhexidine Gluconate 2% 1 Pack (2 Cloths) TOPICAL PRN (04:00)
[2018-05-29 04:07] LABS: ABG Base Excess 1.7 mmol/L (-2-2); ABG PCO2 47 mmHg (38-42); ABG PO2 65 mmHG (61-120)
[2018-05-29 04:45] LABS: Baso % (Auto) 0.2 % (0.0-2.0); Hematocrit 46.6 % (35.0-46.0); Hemoglobin 13.3 gm/dL (11.6-15.3); Lymph # (Auto) 0.2 th/mm3 (1.0-4.8); Lymph % (Auto) 1.9 % (9.0-44.0); Mean Corpuscular Hemoglobin 21.3 pg (27.0-34.0); Mean Platelet Volume 8.6 fL (7.0-11.0); Mono # (Auto) 0.3 th/mm3 (0.0-0.9); Mono % (Auto) 2.1 % (0.0-8.0); Neut # (Auto) 12.1 th/mm3 (1.8-7.7); Neut % (Auto) 95.8 % (16.0-70.0); Platelet Count 301 th/mm3 (150-450); Red Blood Count 6.22 mil/mm3 (4.00-5.30); Red Cell Distribution Width 22.1 % (11.6-17.2); White Blood Count 12.6 th/mm3 (4.0-11.0)
[2018-05-29 04:47] LABS: Mean Corpuscular HGB Conc 28.4 % (32.0-36.0)
[2018-05-29] MEDS: Sod Chloride 0.9% Inj 1,000 ML IV.CONT SCH ×2 (04:49→17:00)
[2018-05-29 04:50] LABS: Activated Partial Thrombo Time 29.5 sec (24.3-30.1); INR 1.2 Ratio
[2018-05-29 05:05] LABS: Albumin 2.8 g/dL (3.4-5.0); Anion Gap 7 meq/L (5-15); Aspartate Aminotransferase 19 U/L (15-37); Blood Urea Nitrogen 37 mg/dL (7-18); Calcium 7.9 mg/dL (8.5-10.1); Carbon Dioxide 28.1 meq/L (21.0-32.0); Chloride 103 meq/L (98-107); Glomerular Filtration Rate 25 mL/min (>89); Glucose,Random 118 mg/dL (74-106); Magnesium 1.9 mg/dL (1.5-2.5); Potassium 5.1 meq/L (3.5-5.1); Sodium 138 meq/L (136-145)
[2018-05-29 05:06] LABS: Alanine Aminotransferase 19 U/L (10-53); Phosphorus 4.2 mg/dL (2.5-4.9)
[2018-05-29 05:10] LABS: Alkaline Phosphatase 95 U/L (45-117)
--- NOTE | 2018-05-29 06:40 | ECG ---
Date Performed: 05/28/2018 Time Performed: 21:10:31 PTAGE: 58 years EKG: SINUS TACHYCARDIA RIGHT ATRIAL ENLARGEMENT LEFT ATRIAL ENLARGEMENT ABNORMAL ECG probably N o significant change from prior electrocardiogram. . PREVIOUS TRACING : 02/04/2015 23.39 DOCTOR: Peter King Interpretating Date/Time 05/29/2018 06:36:50
[2018-05-29 06:54] LABS: ABG Base Excess 1.1 mmol/L (-2-2); ABG PCO2 46 mmHg (38-42); ABG PO2 67 mmHG (61-120)
[2018-05-29] MEDS ORDERED: Epoprostenol (30,000/mL) Neb 75 ML in Sodium Chlor 0.9% Inj 25 ML NEB SCH (08:00)
--- NOTE | 2018-05-29 08:18 | ECG ---
Date Performed: 05/29/2018 Time Performed: 05:41:58 PTAGE: 58 years EKG: Sinus rhythm Normal ECG No significant change from prior electrocardiogram. PREVIOUS TRACING : 05/28/2018 21.10 DOCTOR: Peter King Interpretating Date/Time 05/29/2018 08:17:28
[2018-05-29 10:20] LABS: ABG Base Excess 1.6 mmol/L (-2-2); ABG PCO2 32 mmHg (38-42); ABG PO2 64 mmHG (61-120)
[2018-05-29] MEDS: Gabapentin 100 MG Capsule PO SCH ×2 (10:20→21:56)
[2018-05-29] MEDS: Senna/Docusate Sodium 8.6/50 MG Tablet PO SCH ×2 (10:21→21:57)
[2018-05-29] MEDS: Lisinopril 10 MG Tablet PO SCH (10:21)
[2018-05-29] MEDS: Famotidine PF Inj 20 MG/2 ML Vial IV.PUSH SCH ×2 (10:22→21:56)
[2018-05-29] MEDS: oxyCODONE 10 MG Controlled Release Tablet PO SCH ×2 (12:45→21:57)
[2018-05-29] MEDS: Sertraline 100 MG Tablet PO SCH (12:50)
[2018-05-29] MEDS ORDERED: Epoprostenol (30,000/mL) Neb 60 ML in Sodium Chlor 0.9% Inj 40 ML NEB SCH (16:00)
--- NOTE | 2018-05-29 17:35 | P.PNCC ---
Subjective Subjective Remarks/Hospital Course: 05/28: 58-year-old female with history of lupus, chronic pain syndrome, hypertension, depression, COPD on supplemental oxygen and tobaccoism, presents for an evaluation of generalized weakness with altered mental status. According to the he came from work this evening and found the on the floor. She was awake with generalized weakness and then he assisted her up and into the bathroom where she had an additional fall sustaining a laceration to the anterior aspect of her left ankle. Patient reportedly takes pain medication for chronic pain syndrome. Patient reportedly has not taken additional medication beyond her baseline dosing. No alcohol consumption reportedly. No recent fever or chills. Patient has been having increasing frequency of falls. 2 's knowledge she has had no head injury. Patient in the emergency department at [place] did not complain of head pain neck pain back pain abdominal pain pelvic pain complain of bilateral ankle and left foot pain. She was initially placed on BiPAP, however due to worsening respiratory acidosis she was intubated by ED attending for respiratory failure. 05/29: Remains sedated, orally intubated on mechanical ventilation. PEEP increased to +14 Objective Vital Signs / I&O: Vital Signs 05/28/18 20:27 05/28/18 20:42 05/28/18 20:49 Temperature 98.8 F Pulse Rate 102 H 103 H 106 H Respiratory Rate 24 30 H 30 H Blood Pressure 108/53 L 96/54 L 96/54 L Pulse Oximetry 75 L 90 L 90 L 05/28/18 21:10 05/28/18 21:30 05/28/18 21:49 Temperature Pulse Rate 103 H 100 H 103 H Respiratory Rate 30 H 26 H Blood Pressure 84/53 L Pulse Oximetry 88 L 90 L 05/28/18 22:00 05/28/18 22:28 05/28/18 22:30 Temperature Pulse Rate 99 H Respiratory Rate 28 H Blood Pressure 88/55 L Pulse Oximetry 89 L 94 L 98 05/28/18 22:35 05/28/18 22:40 05/28/18 22:45 Temperature Pulse Rate 108 H 86 Respiratory Rate 14 15 Blood Pressure 105/62 Pulse Oximetry 98 95 05/28/18 23:00 05/28/18 23:23 05/28/18 23:25 Temperature Pulse Rate 92 H 95 H 95 H Respiratory Rate 18 15 14 Blood Pressure 108/64 116/74 Pulse Oximetry 91 L 05/28/18 23:39 05/28/18 23:40 05/29/18 00:45 Temperature Pulse Rate 93 H 75 118 H Respiratory Rate 15 16 18 Blood Pressure 114/69 88/50 L 113/52 L Pulse Oximetry 98 05/29/18 00:54 05/29/18 01:00 05/29/18 01:15 Temperature Pulse Rate 72 104 H 85 Respiratory Rate 19 18 18 Blood Pressure 89/50 L 136/72 82/57 L Pulse Oximetry 95 05/29/18 01:30 05/29/18 02:22 05/29/18 03:15 Temperature Pulse Rate 82 75 Respiratory Rate 18 18 18 Blood Pressure 100/66 90/50 L Pulse Oximetry 96 05/29/18 03:25 05/29/18 03:30 05/29/18 04:34 Temperature 100.1 F H Pulse Rate 78 76 79 Respiratory Rate 18 18 Blood Pressure 106/59 L Pulse Oximetry 91 L 05/29/18 07:00 05/29/18 08:00 05/29/18 08:10 Temperature 100.4 F H Pulse Rate 78 78 Respiratory Rate 18 18 Blood Pressure 110/58 L Pulse Oximetry 91 L 91 L 05/29/18 08:50 05/29/18 09:05 05/29/18 11:00 Temperature 100.2 F H Pulse Rate 80 Respiratory Rate 18 Blood Pressure 117/62 Pulse Oximetry 91 L 95 05/29/18 12:36 05/29/18 12:44 05/29/18 15:00 Temperature 100.7 F H Pulse Rate 83 89 Respiratory Rate 18 19 Blood Pressure 127/66 Pulse Oximetry 94 L 05/29/18 16:07 Temperature Pulse Rate 87 Respiratory Rate 18 Blood Pressure Pulse Oximetry Intake & Output 05/28/18 05/29/18 05/29/18 18:59 06:59 18:59 Intake Total 4150 / 4150 3300 / 3300 Output Total 1190 / 1190 Balance 2960 / 2960 3300 / 3300 Weight 102.5 kg 102.5 kg Intake: IV 4150 / 4150 3300 / 3300 Diprivan 1000 mg/100 ml Inj 1, 300 / 300 000 mg In 100 ml @ 5 MCG/KG/MIN 2.94 mls/hr IV.CONT TITRATE PRN Rx#:[id number] NS Inj 1,000 ML @ 125 mls/hr IV 1000 / 1000 1000 / 1000 .CONT .Q8H BILL Rx#:[id number] Levaquin 750 mg Premix Inj 150 150 / 150 ML @ 100 mls/hr IV.SIG ONCE ONE Rx#:[id number] NS Inj 1,000 ML @ Wide Open IV. 3000 / 3000 2000 / 2000 SIG BOLUS BILL Rx#:[id number] Output: Urine Amount (Catheter) 690 / 690 Indwelling Urethral Catheter 690 / 690 Gastric Drainage 500 / 500 Oral Orogastric Tube 500 / 500 Other: Weight On Admission 102.5 kg Result Diagrams: 05/29/18 04:01 05/29/18 04:01 Imaging: Cervical Spine CT 05/28/18 20:41 CONCLUSION: 1. Degenerative disc disease basically isolated C5-6 level as detailed above. 2. No fracture. Spinal canal and neural foramina appear to be adequate throughout without cord or nerve root compromise. Chest X-Ray 05/28/18 20:41 CONCLUSION: 3.5 cm possible mass in the right upper lung. Prominence in interstitial markings which may represent underlying pulmonary venous hypertension or underlying interstitial disease. Cardiomegaly. Head CT 05/28/18 20:41 CONCLUSION: Negative exam. No acute intracranial process, trauma or fracture. . Ankle X-Ray 05/28/18 20:43 CONCLUSION: No acute fracture Ankle X-Ray 05/28/18 20:43 CONCLUSION: No evidence of recent bony injury. Diffuse soft tissue prominence. Foot X-Ray 05/28/18 20:43 CONCLUSION: 1. Soft tissue defect/laceration anterior to the ankle. 2. Osseous structures are intact. Chest X-Ray 05/29/18 00:50 CONCLUSION: ET tube and NG tube in good position. Cardiomegaly. Diffuse interstitial disease. Focal density in the right upper lung. Objective Remarks: HEENT/ Neuro: Sedated, orally intubated, Pallor present, no icterus, tongue/ mucosa moist Neck: No JVD Chest/Pulm: on mech vent, good air entry bilaterally, scattered rhonchi bilaterally, no wheezing or crackles CVS: S1-S2 regular, no murmur GI/abdomen: soft, nontender, bowel sounds sluggish Extremities: warm bilaterally, no edema Assessment and Plan - Assessment and Plan Plan: Acute respiratory failure -COPD exacerbation -DuoNeb scheduled and as needed -IV antibiotics -IV steroids -Continue mechanical ventilation, PEEP increased to +14, titrate FiO2 to keep O2 sat greater than 90%. Inhaled Flolan if needed. -Pulmonary consult requested for further evaluation of right upper lobe density- most likely pneumonia. Follow-up CT chest. -Vent bundle Sepsis/pneumonia -Continue antibiotics. Check sputum Gram stain and cultures. Nasal washings for influenza a and B. CT chest without contrast for further evaluation of right upper lobe density. ID consult Diabetes -Insulin sliding scale -Glucerna tube feeds -Levemir daily Chronic back pain -Gabapentin -Home meds as needed DVT GI prophylaxis -Teds SCDs -Subcu heparin -Pepcid 35 minutes of critical care
--- NOTE | 2018-05-29 18:18 | ECHRPT ---
Indication: short of breath CONCLUSIONS The left ventricular systolic function is normal with an estimated ejection fraction in the range of 55-60%. Moderate concentric left ventricular hypertrophy. The right ventricle is moderately dilated. Trace mitral valve regurgitation. There is mild tricuspid valve regurgitation. The inferior vena cava is dilated. BP: / HR: Rhythm: MEASUREMENTS (Male / Female) Normal Values Technical Quality: 2D ECHO LV Diastolic Diameter PLAX 4.5 cm 4.2 - 5.9 / 3.9 - 5.3 cm LV Systolic Diameter PLAX 3.6 cm IVS Diastolic Thickness 1.3 cm 0.6 - 1.0 / 0.6 - 0.9 cm LVPW Diastolic Thickness 1.4 cm 0.6 - 1.0 / 0.6 - 0.9 cm LV Relative Wall Thickness 0.6 RV Internal Dim ED PLAX 3.4 cm LVOT Diameter 1.7 cm Aortic Root Diameter 2.5 cm LA Systolic Diameter LX 3.8 cm 3.0 - 4.0 / 2.7 - 3.8 cm LV Ejection Fraction MOD 4C 53.7 % LV Ejection Fraction 4C AL 54.8 % M-MODE Aortic Root Diameter MM 3.3 cm LA Systolic Diameter MM 5.1 cm LA Ao Ratio MM 1.5 AV Cusp Separation MM 1.9 cm DOPPLER AV Peak Velocity 194.0 cm/s AV Peak Gradient 15.1 mmHg LVOT Peak Velocity 116.0 cm/s LVOT Peak Gradient 5.4 mmHg AV Area Cont Eq pk 1.4 cm Mitral E Point Velocity 85.9 cm/s Mitral A Point Velocity 86.4 cm/s Mitral E to A Ratio 1.0 LV E' Lateral Velocity 8.5 cm/s Mitral E to LV E' Lateral Ratio 10.1 LV E' Septal Velocity 6.7 cm/s Mitral E to LV E' Septal Ratio 12.8 TR Peak Velocity 301.0 cm/s TR Peak Gradient 36.2 mmHg Right Atrial Pressure 10.0 mmHg Pulmonary Artery Systolic Pressu 46.2 mmHg Right Ventricular Systolic Press 46.2 mmHg PV Peak Velocity 114.0 cm/s PV Peak Gradient 5.2 mmHg FINDINGS LEFT VENTRICLE Normal left ventricular size. The left ventricular systolic function is normal with an estimated ejection fraction in the range of 55-60%. Moderate concentric left ventricular hypertrophy. RIGHT VENTRICLE The right ventricle is moderately dilated. LEFT ATRIUM The left atrial size is [id number] dilated. RIGHT ATRIUM The right atrial size is moderately dilated. ATRIAL SEPTUM Normal atrial septal thickness AORTA The aortic root and proximal ascending aorta are normal in size on limited imaging. MITRAL VALVE Grossly normal No mitral valve stenosis. Trace mitral valve regurgitation. AORTIC VALVE No aortic valve stenosis or regurgitation. TRICUSPID VALVE Grossly normal There is mild tricuspid valve regurgitation. The estimated pulmonary arterial pressure is 46 mmHg. PULMONARY VALVE No pulmonary valve regurgitation or stenosis. VESSELS The inferior vena cava is dilated. PERICARDIUM No pericardial effusion. Tani Delgado DO (Electronically Signed) Final Date:29 May 2018 18:17
[2018-05-30] MEDS ORDERED: Epoprostenol (30,000/mL) Neb 45 ML in Sodium Chlor 0.9% Inj 55 ML NEB SCH
[2018-05-30] MEDS: Heparin - SQ 10,000 UNITS/ML Vial SQ SCH ×4 (00:05→23:42)
[2018-05-30] MEDS: Propofol 1000 mg/100 ml Inj 1,000 MG/100 ML BOTTLE IV.CONT PRN ×9 (00:06→23:42)
[2018-05-30] MEDS: Chlorhexidine Gluconate 2% 1 Pack (2 Cloths) TOPICAL SCH (04:30)
[2018-05-30 05:27] LABS: Hematocrit 43.2 % (35.0-46.0); Hemoglobin 12.7 gm/dL (11.6-15.3); Mean Corpuscular Hemoglobin 21.1 pg (27.0-34.0); Mean Corpuscular Volume 71.8 fL (80.0-100.0); Mean Platelet Volume 8.8 fL (7.0-11.0); Platelet Count 264 th/mm3 (150-450); Red Blood Count 6.01 mil/mm3 (4.00-5.30); Red Cell Distribution Width 22.9 % (11.6-17.2); White Blood Count 11.2 th/mm3 (4.0-11.0)
[2018-05-30] MEDS: Sod Chloride 0.9% Inj 1,000 ML IV.CONT SCH ×3 (06:00→16:23)
[2018-05-30 06:07] LABS: Alanine Aminotransferase 15 U/L (10-53); Albumin 2.8 g/dL (3.4-5.0); Alkaline Phosphatase 77 U/L (45-117); Anion Gap 10 meq/L (5-15); Aspartate Aminotransferase 21 U/L (15-37); Blood Urea Nitrogen 34 mg/dL (7-18); Carbon Dioxide 25.1 meq/L (21.0-32.0); Chloride 104 meq/L (98-107); Glomerular Filtration Rate 54 mL/min (>89); Glucose,Random 126 mg/dL (74-106); Potassium 4.3 meq/L (3.5-5.1); Sodium 139 meq/L (136-145); Total Protein 6.8 g/dL (6.4-8.2)
[2018-05-30] MEDS: MethylPREDNISolone Sod Succinate Inj 40 MG/ML Vial IV.PUSH SCH ×3 (06:18→21:57)
[2018-05-30 06:33] LABS: Mean Corpuscular HGB Conc 29.4 % (32.0-36.0)
[2018-05-30] MEDS ORDERED: Sodium Phosphate Inj 30 MMOL in Sodium Chlor 0.9% Inj 250 ML IV.SIG PRN (06:46)
[2018-05-30] MEDS ORDERED: Potassium Chloride 25 MEQ Effervescent Tablet PO PRN (06:46)
[2018-05-30] MEDS ORDERED: Potassium Chlor 20 mEq Premix 20 MEQ/100 ML PIGGYBACK IV.SIG PRN ×2 (06:46)
[2018-05-30] MEDS ORDERED: Magnesium Sulfate Inj 2 GM in Sodium Chlor 0.9% Inj 96 ML IV.SIG PRN (06:46)
[2018-05-30] MEDS ORDERED: Potassium Phosphate Inj 30 MMOL in Sodium Chlor 0.9% Inj 250 ML IV.SIG PRN (06:46)
[2018-05-30] MEDS ORDERED: Potassium Chlor 40 mEq Premix 40 MEQ/100 ML PIGGYBACK IV.SIG PRN ×2 (06:46)
[2018-05-30] MEDS ORDERED: Potassium Phosphate 500 MG Soluble Tablet PO PRN ×2 (06:46)
[2018-05-30] MEDS ORDERED: Magnesium Oxide 400 MG Tablet PO PRN (06:46)
[2018-05-30] MEDS ORDERED: Magnesium Sulfate Inj 4 GM in Sodium Chlor 0.9% Inj 92 ML IV.SIG PRN (06:46)
--- NOTE | 2018-05-30 07:01 | P.PNCC ---
Subjective Subjective Remarks/Hospital Course: 05/28: 58-year-old female with history of lupus, chronic pain syndrome, hypertension, depression, COPD on supplemental oxygen and tobaccoism, presents for an evaluation of generalized weakness with altered mental status. According to the he came from work this evening and found the on the floor. She was awake with generalized weakness and then he assisted her up and into the bathroom where she had an additional fall sustaining a laceration to the anterior aspect of her left ankle. Patient reportedly takes pain medication for chronic pain syndrome. Patient reportedly has not taken additional medication beyond her baseline dosing. No alcohol consumption reportedly. No recent fever or chills. Patient has been having increasing frequency of falls. 2 's knowledge she has had no head injury. Patient in the emergency department at [place] did not complain of head pain neck pain back pain abdominal pain pelvic pain complain of bilateral ankle and left foot pain. She was initially placed on BiPAP, however due to worsening respiratory acidosis she was intubated by ED attending for respiratory failure. 05/29: Remains sedated, orally intubated on mechanical ventilation. PEEP increased to +14 05/30: remains intubated and sedated. intermittently agitated. PEEP down to + 12. still febrile. remains hypoxic on 70% fio2, spo2 91%. Objective Vital Signs / I&O: Vital Signs 05/29/18 07:00 05/29/18 08:00 05/29/18 08:10 Temperature 38.0 C H Pulse Rate 78 78 Respiratory Rate 18 18 Blood Pressure 110/58 L Pulse Oximetry 91 L 91 L 05/29/18 08:50 05/29/18 09:05 05/29/18 11:00 Temperature 37.9 C H Pulse Rate 80 Respiratory Rate 18 Blood Pressure 117/62 Pulse Oximetry 91 L 95 05/29/18 12:36 05/29/18 12:44 05/29/18 14:10 Temperature Pulse Rate 83 Respiratory Rate 18 18 Blood Pressure Pulse Oximetry 94 L 92 L 05/29/18 15:00 05/29/18 16:07 05/29/18 19:44 Temperature 38.2 C H Pulse Rate 89 87 98 H Respiratory Rate 19 18 18 Blood Pressure 127/66 Pulse Oximetry 05/29/18 19:47 05/29/18 20:00 05/29/18 23:49 Temperature 37.6 C H Pulse Rate 110 H 97 H Respiratory Rate 21 18 18 Blood Pressure 127/60 Pulse Oximetry 94 L 94 L 05/29/18 23:55 05/30/18 00:00 05/30/18 03:49 Temperature 37.8 C H Pulse Rate 94 H 98 H Respiratory Rate 18 18 18 Blood Pressure 127/72 Pulse Oximetry 90 L 93 L 05/30/18 03:50 05/30/18 04:00 Temperature 38.1 C H Pulse Rate 92 H Respiratory Rate 18 18 Blood Pressure 123/70 Pulse Oximetry 94 L 91 L Intake & Output 05/29/18 05/29/18 05/30/18 06:59 18:59 06:59 Intake Total 4150 / 4150 3480 / 3480 1300 / 1300 Output Total 1190 / 1190 900 / 900 910 / 910 Balance 2960 / 2960 2580 / 2580 390 / 390 Weight 102.5 kg 102.5 kg 101 kg Intake: IV 4150 / 4150 3480 / 3480 1300 / 1300 Diprivan 1000 mg/100 ml Inj 1, 400 / 400 300 / 300 000 mg In 100 ml @ 5 MCG/KG/MIN 2.94 mls/hr IV.CONT TITRATE PRN Rx#:[id number] NS Inj 1,000 ML @ 125 mls/hr IV 1000 / 1000 1080 / 1080 1000 / 1000 .CONT .Q8H BILL Rx#:[id number] Levaquin 750 mg Premix Inj 150 150 / 150 ML @ 100 mls/hr IV.SIG ONCE ONE Rx#:[id number] NS Inj 1,000 ML @ Wide Open IV. 3000 / 3000 2000 / 2000 SIG BOLUS BILL Rx#:[id number] Oral 0 / 0 Output: Urine Amount (Catheter) 690 / 690 900 / 900 710 / 710 Indwelling Urethral Catheter 690 / 690 900 / 900 710 / 710 Gastric Drainage 500 / 500 0 / 0 200 / 200 Oral Orogastric Tube 500 / 500 0 / 0 200 / 200 Other: # Bowel Movements 0 Weight On Admission 102.5 kg Result Diagrams: 05/30/18 04:05 05/30/18 04:05 Objective Remarks: Gen: middle-aged female, lying in bed, critically ill. HEENT: nc. at. perrl. mmm. Neck: No JVD. trachea midline. Chest/Pulm: on mech vent, equal chest rise. prvc 600/18/12/70%. spo2 91%. CVS: normal rate, regular rhythm. sinus. GI/abdomen: soft, nontender, nondistended. no guarding. Extremities: warm bilaterally, no edema neuro: RASS -2. arouses. withdraws x 4. Assessment and Plan - Assessment and Plan Plan: Assessment: 58yF with COPD and chronic pain syndrome with acute hypoxic and hypercarbic respiratory failure secondary to community acquired pneumonia and acute COPD exacerbation. remains critically ill with minimal overall improvements. continue to wean fio2 as tolerated. will need more time for abx and steroids to improve respiratory function. Neuro: Chronic Pain Syndrome Chronic Opioid dependence - continue home gabapentin - start fentanyl drip - continue propofol drip: goal RASS -2 - start oxycodone 20mg po q4h scheduled - on home oxycodone SR 30mg po q12h and 30mg po q4h for breakthrough. currently on hold - frequent neuro checks Resp: Acute hypoxic and hypercarbic respiratory failure Acute COPD Exacerbation - severe, persistent Acute Community Acquired pneumonia- present on admission Tobaccoism - iv steroids - iv abx - wean fio2 for goal spo2 > 88% - scheduled and prn nebs - vent bundle, hob elevated - keep PEEP at +12 today - am abg - am cxr - chest CT - pulm consult - will certified genetic counselor smoking cessation after extubation. CV: Septic Shock- resolving Type II NSTEMI secondary to demand ischemia Elevated troponins - continue mivf - off dopamine - no evidence for ACS. will not anticoagulate - trops stable. will stop trending - 2d echo 05/29 preserved LV function, mildly dilated RV. Renal: Acute kidney injury- resolving - secondary to shock - continue strict i/o's - continue mivf - daily bmp - no indication for moreno catheter FEN/GI: Acute protein calorie malnutrition- moderate - start tube feeds - daily bmp, mg, phos - ICU electrolyte protocol - bowel regimen Heme/ID: Community Acquired Pneumonia- present on admission Septic shock- resolving, present on admission - continue iv abx - nasal wash for flu still pending - CT chest still pending - f/u cultures - ID consult pending - daily cbc Endo: Diabetes - ssi - levemir Prophylaxis: - SCDs - SQH - pepcid Lines: - piv - moreno: will remove. Dispo: - remain in ICU. remains very critically ill. Critical care time: 42 minutes, exclusive of separately billable procedures.
[2018-05-30] MEDS ORDERED: Epoprostenol (30,000/mL) Neb 30 ML in Sodium Chlor 0.9% Inj 70 ML NEB SCH (08:00)
[2018-05-30] MEDS: Gabapentin 100 MG Capsule PO SCH ×2 (09:51→21:56)
[2018-05-30] MEDS: Senna/Docusate Sodium 8.6/50 MG Tablet PO SCH ×2 (09:51→21:57)
[2018-05-30] MEDS: Famotidine PF Inj 20 MG/2 ML Vial IV.PUSH SCH ×2 (09:51→21:56)
[2018-05-30] MEDS: Lisinopril 10 MG Tablet PO SCH (09:52)
[2018-05-30] MEDS: Sertraline 100 MG Tablet PO SCH (09:52)
[2018-05-30] MEDS: fentaNYL 10 mcg/mL Premix Drip 2,500 MCG/250 ML BAG IV.SIG PRN (10:00)
--- NOTE | 2018-05-30 10:56 | P.DIET ---
Nutritional Evaluation Type of nutrition evaluation: initial Nutrition consult regarding: Tube Feeding Nutrition screening: [facility] [place] Objective - Diagnosis AMS, COPD Exacerbation with Respiratory Failure, NSTEMI - Objective Body Mass Index: 37.1 % IBW: 178 (IBW = 125#) Body Weight Used for Calculations: IBW (56.8 kg) Energy Needs - Lower Range (kCal/kg): 25 Energy Needs - Upper Range (kCal/kg): 30 Lower Limit kCal/kg (kCals): 1,420 Upper Limit kCal/kg (kCals): 1,704 Lower Limit Protein Factor (Grams per Kg): 1.0 Upper Limit Protein Factor (Grams per Kg): 1.5 Lower Protein Needs (Protein): 57 Upper Protein Needs (Protein): 85 Dietitian Reviewed in Medical Record: Curent medications, Intake & Output, Labs , Medical history, Tube feeding Diet Order: NPO Assessment Assessment: Pt is intubated and sedated and needs TFing to meet nutritional needs. Current order is for Glucerna 1.5 @ 50 mls/hr goal. To meet needs with Glucerna 1.5, recommend goal rate of 40 mls/hr to provide 1440 kcals, 79 gms protein and 729 mls of free water. Additional kcals will be provided by propofol (1.1 kcal/ml). Propofol currently at 35 mls/hr and this provides 924 kcals in 24 hrs. Recommendations: Glucerna 1.5 @ 40 mls/hr goal Dietitian to Monitor: Lab values, Intake & Output, Tube feeding tolerance, Weight change, Medical course
--- NOTE | 2018-05-30 11:37 | P.CONID ---
History of Present Illness Service: Infectious Disease Consult date: 05/30/18 Requesting Physician: Baltazar Castaneda Reason for Consult: Evaluate patient with sepsis Primary Care Provider: Oren Robbins MD History of Present Illness: Patient seen and examined. Records reviewed. Patient is a 58-year-old female, brought into the hospital for evaluation of generalized weakness, and some lethargy. Patient is taking medication for chronic pain syndrome. She apparently has been very weak recently and on the day of admission when the came home he found the patient on the floor. She was apparently awake and was complaining of generalized weakness. After that she sustained another fall and got a laceration on her left leg. There was mention of complaints of shortness of breath. There was no fever or chills lately no chest pain, no abdominal pain. She did have pain in the ankle and the foot. Evaluation in the ED showed that she was quite lethargic and she ended up getting intubated. Patient has been intubated since. She is currently on the vent, FiO2 at 70% and PEEP of 12. She has been running fevers. Her chest x-ray has shown some interstitial infiltrate and there is a suggestion of an upper lung mass. Sputum culture is pending. Blood cultures are negative so far. Influenza testing is negative. Her initial WBC was 14, 000 and is down to 11,000. Lactic acid is normal. Patient is going to have CT of the chest today and that is still pending. She is currently on Levaquin. Infectious disease consultation has been requested to assist with evaluation and treatment. Review of Systems unobtainable due to mental status Constitutional: Reports fever(s), Reports weakness PMFSH - History History Provided By: Patient - Medical History Medical History: Medical History (Last Reviewed 05/30/18 @ 11:42 by Peyton Benito MD) Amputation of index finger Diabetes History of COPD History of chronic back pain History of hysterectomy History of lupus Knee injury Shoulder injury - Tobacco History Second Hand Smoke Exposure: Yes Tobacco Use In Past 30 Days: Yes Smoking Status: Current every day smoker Tobacco Type: Cigarettes - Alcohol History How Often Do You Have a Drink Containing Alcohol: Never - Substance Use History Substance History: No History of Abuse - Travel History Recent Travel in the [place] Within the Last 8 Weeks: No Recent Travel Out of the Country Within the Last 8 Weeks: No - Immunization History Tetanus Immunization: Unsure Medications and Allergies Active Medications: Active Medications Acetaminophen (Tylenol) 650 mg PO Q6H PRN PRN Reason: PAIN 1-10 AND/OR FEVER >101F Last Admin: 05/29/18 22:10 Dose: 650 mg Al Hydroxide/Mg Hydroxide (Milk Of Dipak Liq) 30 ml PO Q12H PRN PRN Reason: Mild Constipation Albuterol (Duoneb Neb (Prn)) 1 ampul NEB Q2HR NEB PRN PRN Reason: WHEEZING Albuterol (Duoneb Neb (Billie)) 1 ampul NEB Q4HR NEB BILLIE Last Admin: 05/30/18 08:41 Dose: 1 ampul Bisacodyl (Dulcolax Supp) 10 mg RECTAL DAILY PRN PRN Reason: SEVERE CONSITIPATION Budesonide (Pulmocort Respule Neb) 0.5 mg NEB Q12HR NEB BILLIE Last Admin: 05/30/18 08:40 Dose: 0.5 mg Chlorhexidine Gluconate (Chlorhexidine 2% Cloth) 3 pack TOPICAL DAILY@0400 PRN PRN Reason: Extra cloth needed Stop: 06/03/18 03:59 Chlorhexidine Gluconate (Chlorhexidine 2% Cloth) 3 pack TOPICAL DAILY@0400 BILLIE Stop: 06/03/18 03:59 Last Admin: 05/30/18 04:30 Dose: 3 pack Famotidine (Pepcid Pf Inj) 20 mg IV.PUSH Q12HR [facility] Last Admin: 05/30/18 09:51 Dose: 20 mg Gabapentin (Neurontin) 100 mg PO HS [facility] Last Admin: 05/29/18 21:56 Dose: 100 mg Gabapentin (Neurontin) 200 mg PO DAILY [facility] Last Admin: 05/30/18 09:51 Dose: 200 mg Heparin Sodium (Porcine) (Heparin Inj) 5,000 units SQ Q8H [facility] Last Admin: 05/30/18 09:50 Dose: 5,000 units Sodium Chloride (Ns Inj) 1,000 mls @ 80 mls/hr IV.CONT .[id number] [facility] Last Admin: 05/30/18 06:17 Dose: Not Given Propofol (Diprivan 1000 Mg/100 Ml Inj) 1,000 mg in 100 mls @ 2.94 mls/hr IV.CONT TITRATE PRN; Protocol PRN Reason: Per Protocol Last Admin: 05/30/18 09:50 Dose: 60 mcg/kg/min, 35.28 mls/hr Levofloxacin/Dextrose (Levaquin 750 Mg Premix Inj) 150 mls @ 100 mls/hr IV.SIG Q48H [facility] Fentanyl (Fentanyl 10 Mcg/Ml Premix Drip) 2,500 mcg in 250 mls @ 5 mls/hr IV.SIG TITRATE PRN; Protocol PRN Reason: Per Protocol Magnesium Sulfate 4 gm/ Sodium (Chloride) 100 mls @ 50 mls/hr IV.SIG UNSCH PRN PRN Reason: For Magnesium 0.9 - 1.1 mg/dL Magnesium Sulfate 2 gm/ Sodium (Chloride) 100 mls @ 50 mls/hr IV.SIG UNSCH PRN PRN Reason: For Magnesium 1.2 - 1.6 mg/dL Potassium Chloride (Kcl 40 Meq Premix Inj) 40 meq in 100 mls @ 25 mls/hr IV.SIG Q2H PRN PRN Reason: For Potassium 2.8 - 3.2 mEq/L Potassium Chloride (Kcl 20 Meq Premix Inj) 20 meq in 100 mls @ 50 mls/hr IV.SIG Q2H PRN PRN Reason: For Potassium 3.3 - 3.5 mEq/L Potassium Chloride (Kcl 40 Meq Premix Inj) 40 meq in 100 mls @ 25 mls/hr IV.SIG UNSCH PRN PRN Reason: For Potassium 3.3 - 3.5 mEq/L Potassium Phosphate 30 mmol/ (Sodium Chloride) 260 mls @ 42 mls/hr IV.SIG UNSCH PRN PRN Reason: SEE LABEL COMMENTS Sodium Phosphate 30 mmol/ (Sodium Chloride) 260 mls @ 42 mls/hr IV.SIG UNSCH PRN PRN Reason: For Phosphorus < 2.5 mg/dL Potassium Chloride (Kcl 20 Meq Premix Inj) 20 meq in 100 mls @ 50 mls/hr IV.SIG Q2H PRN PRN Reason: For Potassium 2.8 - 3.2 mEq/L Lactulose (Lactulose Liq) 30 ml PO DAILY PRN PRN Reason: SEVERE CONSITIPATION Lisinopril (Prinivil) 10 mg PO DAILY [facility] Last Admin: 05/30/18 09:52 Dose: 10 mg Magnesium Oxide (Mag-Ox) 800 mg PO UNSCH PRN PRN Reason: For Magnesium 1.2 - 1.6 mg/dL Methylprednisolone Sodium Succinate (Solumedrol Inj) 40 mg IV.PUSH Q8HR [facility] Last Admin: 05/30/18 06:18 Dose: 40 mg Ondansetron HCl (Zofran Inj) 4 mg IV.PUSH Q6H PRN PRN Reason: NAUSEA OR VOMITING Oxycodone HCl (Roxicodone) 30 mg PO Q4H PRN PRN Reason: BREAKTHROUGH PAIN Oxycodone HCl (Oxycontin Cr) 30 mg PO BID [facility] Last Admin: 05/29/18 21:57 Dose: 30 mg Oxycodone HCl (Roxicodone) 20 mg PO Q4HR [facility] Last Admin: 05/30/18 09:51 Dose: 20 mg Potassium Bicarb/Potassium Chloride (K-Lyte Cl Eff) 50 meq PO UNSCH PRN PRN Reason: For Potassium 3.3 - 3.5 mEq/L Potassium Phosphate (K-Phos Original) 2,000 mg PO Q4H PRN PRN Reason: Phosphorus Less Than 2.5 mg/dL Potassium Phosphate (K-Phos Original) 2,000 mg PO UNSCH PRN PRN Reason: SEE LABEL COMMENTS Senna/Docusate Sodium (Thao-Colace) 1 tab PO BID [facility] Last Admin: 05/30/18 09:51 Dose: 1 tab Sennosides (Senokot) 17.2 mg PO Q12H PRN PRN Reason: Moderate Constipation Sertraline HCl (Zoloft) 100 mg PO DAILY [facility] Last Admin: 05/30/18 09:52 Dose: 100 mg Sodium Chloride (Ns Flush) 2 ml IV.FLUSH BID [facility] Last Admin: 05/30/18 09:52 Dose: 2 ml Allergies Allergy/AdvReac Type Severity Reaction Status Date / Time penicillin G Allergy Severe UNKNOWN Verified 05/30/18 11:43 FROM CHILDHOOD Sulfa (Sulfonamide Allergy Unknown unknown Verified 05/28/18 20:13 Antibiotics) from childhood Home Medications Medication Instructions Recorded Confirmed Type Zoloft 100 mg PO DAILY 05/28/18 05/28/18 History gabapentin 100 mg PO HS 05/28/18 05/28/18 History gabapentin 200 mg PO DAILY 05/28/18 05/28/18 History lisinopril 10 mg PO DAILY 05/28/18 05/28/18 History metformin 500 mg PO BID 05/28/18 05/28/18 History oxycodone 30 mg PO Q4-6H PRN 05/28/18 05/28/18 History oxycodone [OxyContin] 30 mg PO Q12H 05/28/18 05/28/18 History Exam Vital signs: Vital Signs 05/29/18 12:36 05/29/18 12:44 05/29/18 14:10 Temperature Pulse Rate 83 Respiratory Rate 18 18 Blood Pressure Pulse Oximetry 94 L 92 L 05/29/18 15:00 05/29/18 16:07 05/29/18 19:44 Temperature 100.7 F H Pulse Rate 89 87 98 H Respiratory Rate 19 18 18 Blood Pressure 127/66 Pulse Oximetry 05/29/18 19:47 05/29/18 20:00 05/29/18 23:49 Temperature 99.7 F H Pulse Rate 110 H 97 H Respiratory Rate 21 18 18 Blood Pressure 127/60 Pulse Oximetry 94 L 94 L 05/29/18 23:55 05/30/18 00:00 05/30/18 03:49 Temperature 100.0 F H Pulse Rate 94 H 98 H Respiratory Rate 18 18 18 Blood Pressure 127/72 Pulse Oximetry 90 L 93 L 05/30/18 03:50 05/30/18 04:00 05/30/18 07:00 Temperature 100.5 F H 99.8 F H Pulse Rate 92 H 87 Respiratory Rate 18 18 16 Blood Pressure 123/70 135/76 Pulse Oximetry 94 L 91 L 91 L 05/30/18 08:41 05/30/18 11:00 Temperature 99.8 F H Pulse Rate 94 H 93 H Respiratory Rate 16 16 Blood Pressure 130/72 Pulse Oximetry 91 L Intake & Output 05/29/18 05/30/18 05/30/18 18:59 06:59 18:59 Intake Total 3480 / 3480 1300 / 1300 100 / 100 Output Total 900 / 900 910 / 910 Balance 2580 / 2580 390 / 390 100 / 100 Weight 102.5 kg 101 kg Intake: IV 3480 / 3480 1300 / 1300 100 / 100 Diprivan 1000 mg/100 ml Inj 1, 400 / 400 300 / 300 100 / 100 000 mg In 100 ml @ 5 MCG/KG/MIN 2.94 mls/hr IV.CONT TITRATE PRN Rx#:[id number] NS Inj 1,000 ML @ 125 mls/hr IV 1080 / 1080 1000 / 1000 .CONT .Q8H [facility] Rx#:[id number] NS Inj 1,000 ML @ Wide Open IV. 1999 SIG BOLUS [facility] Rx#:[id number] Oral 0 / 0 Output: Urine Amount (Catheter) 900 / 900 710 / 710 Indwelling Urethral Catheter 900 / 900 710 / 710 Gastric Drainage 0 / 0 200 / 200 Oral Orogastric Tube 0 / 0 200 / 200 Other: # Bowel Movements 0 Weight On Admission 102.5 kg Narrative: Physical Examination GENERAL: Patient is a well-nourished, well-developed female, sedated on the vent, not in respiratory distress. SKIN: Warm and dry. No generalized rash, no ecchymoses and no evidence of embolic lesions. HEAD: Atraumatic. Normocephalic. No temporal wasting, or tenderness. EYES: [place] conjunctiva. No petechia or hemorrhage. Pupils equal, round and reactive to light. No scleral icterus. No injection or drainage. EARS, NOSE AND THROAT: Nose without bleeding or purulent nasal discharge. Mucous membranes pink and moist. She is orally intubated NECK: Trachea midline. Supple and not tender, no meningeal signs CARDIOVASCULAR: Regular rate and rhythm. No murmurs, rubs or gallops heard RESPIRATORY: Coarse breath sounds bilaterally. Decreased at the bases ABDOMEN: Soft, non-tender, nondistended. Bowel sounds present and normoactive. No guarding. No rebound. No organomegaly. EXTREMITIES: No clubbing, cyanosis. Has mild pedal edema. Sutured laceration L distal ankle, with dried blood, no evidence of infection. NEUROLOGICAL: Sedated. PSYCHIATRIC: Unable to assess. LINE: No evidence of infection Results - Labs CBC & Chem 7: 05/30/18 04:05 05/30/18 04:05 Labs: Laboratory Results - last 24 hr 05/29/18 05/30/18 05/30/18 14:14 04:05 04:05 WBC 11.2 H RBC 6.01 H Hgb 12.7 Hct 43.2 MCV 71.8 L MCH 21.1 L MCHC 29.4 L RDW 22.9 H Plt Count 264 MPV 8.8 Sodium 139 Potassium 4.3 D Chloride 104 Carbon Dioxide 25.1 Anion Gap 10 BUN 34 H Creatinine 1.06 H Estimated GFR 54 L POC Glucose 126 H Random Glucose 126 H Calcium 9.0 D Total Bilirubin 0.6 AST 21 ALT 15 Alkaline Phosphatase 77 Total Protein 6.8 Albumin 2.8 L - Imaging Cervical Spine CT 05/28/18 20:41 CONCLUSION: 1. Degenerative disc disease basically isolated C5-6 level as detailed above. 2. No fracture. Spinal canal and neural foramina appear to be adequate throughout without cord or nerve root compromise. Head CT 05/28/18 20:41 CONCLUSION: Negative exam. No acute intracranial process, trauma or fracture. Ankle X-Ray 05/28/18 20:43 CONCLUSION: No evidence of recent bony injury. Diffuse soft tissue prominence. Foot X-Ray 05/28/18 20:43 CONCLUSION: 1. Soft tissue defect/laceration anterior to the ankle. 2. Osseous structures are intact. Chest X-Ray 05/29/18 00:50 CONCLUSION: ET tube and NG tube in good position. Cardiomegaly. Diffuse interstitial disease. Focal density in the right upper lung. Assessment and Plan - Plan Impression Sepsis on admission Fever CAP, ?mass in lung - C/S pending Respiratory failure Known COPD, smoker Renal insufficiency Recommendation Follow C/S Give dose of Vanco - check level in AM Continue Levaquin For CT chest Follow temps Monitor progress I will follow along with you Thank you for this consultation
[2018-05-30] MEDS ORDERED: Vancomycin Inj 1,000 MG in Sodium Chlor 0.9% Inj 250 ML IV.SIG ONE (13:00)
--- NOTE | 2018-05-30 14:52 | MB ---
cc: Rajat Jaeger MD DATE: 05/30/2018 PULMONARY CONSULTATION HISTORY OF PRESENT ILLNESS: The patient is a 58-year-old female with past medical history of lupus, chronic pain syndrome, hypertension, depression, COPD and tobacco use. She presented to [facility] ED with generalized weakness and altered mental status. She was initially placed on BiPAP; however, due to worsening respiratory acidosis, she was intubated by the ED physician and placed on full mechanical ventilation. A chest x-ray on 05/28/2018 showed a 3.5 cm possible mass in the right upper lung, cardiomegaly and interstitial disease. When seen she is sedated with a Diprivan, fentanyl infusion and on full mechanical ventilation. Currently she is on PRVC mode with rate of 16, tidal volume 600, I-time 1.2, PEEP increased to 12 with 70% FiO2 and saturation of 91%-92%. She is also being seen by infectious disease service and is on broad spectrum antibiotics. Her x-ray from this morning showed cardiomegaly with diffuse interstitial disease and focal density in the right upper lung. Patient had echocardiogram on 05/29/2018 which showed normal LV size and systolic function with EF of 55%-60%, moderate concentric LVH and RV systolic pressure 46 mmHg. The patient had a negative influenza screening on 05/29/2018. A CT scan of the chest has been ordered; however, is still pending. Pulmonary medicine was consulted for respiratory failure and abnormal radiographic findings. PAST MEDICAL HISTORY: Significant for COPD, chronic back pain, diabetes mellitus, hypertension. PAST SURGICAL HISTORY: Previous hysterectomy, previous amputation of index finger. SOCIAL HISTORY: Active smoker, nondrinker. ALLERGIES: PENICILLIN AND SULFA. FAMILY HISTORY: Noncontributing to present illness. CURRENT MEDICATIONS: Include: 1. DuoNeb. S 2. Steroids. 3. Pepcid. 4. Fentanyl. 5. Diprivan. 6. Neurontin. 7. Lisinopril. 8. Vancomycin. REVIEW OF SYSTEMS: As per HPI, review of systems unobtainable as the patient is intubated. PHYSICAL EXAMINATION: GENERAL: A 58-year-old female, intubated and on full mechanical ventilation. VITAL SIGNS: T-max 100.5, pulse of 88, respiratory rate of 16, blood pressure 130/72, saturation 91%. Vent settings PRVC rate of 16, tidal volume 600, I-time 1.2, PEEP of 12, FiO2 70%. HEENT: Atraumatic, normocephalic. Pupils are equal, round, reactive to light and accommodation. Extraocular muscles intact. Conjunctivae pink. Nonicteric sclerae. Oral mucosa within normal. NECK: Supple. No JVD, adenopathy or thyromegaly. Trachea in the midline. CARDIOVASCULAR: Regular rate and rhythm. Normal S1, S2. No murmurs, rubs or gallops noted. PULMONARY: Bilateral equal air entry with coarse breath sounds. ABDOMEN: Soft, nontender. No distention. Positive bowel sounds. EXTREMITIES: No cyanosis, clubbing or edema. NEUROLOGIC: Intubated and sedated. LABORATORY DATA: Sodium 139, potassium 4.3, chloride 104, CO2 25, BUN 34, creatinine 1.06, glucose 126. WBC 11.2, hemoglobin 12.7, hematocrit 43, platelet count of 264. A urine drug screen on 05/28/2018 positive for opiates. RADIOGRAPHIC STUDIES: A chest x-ray showed cardiomegaly, diffuse interstitial disease, focal density in the right upper lung. IMPRESSION: 1. Acute hypoxemic respiratory failure requiring intubation and mechanical ventilation. 2. Severe acute respiratory distress syndrome. 3. Diffuse interstitial lung disease. 4. Focal density right upper lobe. 5. Leukocytosis. 6. Acute kidney injury, improving. 7. Chronic obstructive pulmonary disease. 8. Diabetes mellitus. 9. Elevated troponin. RECOMMENDATIONS: 1. Continue with vent support and maintain sats above 92%. 2. Bronchodilators in the form of DuoNeb every 4 hours plus every 2 hours p.r.n. for shortness of breath. In addition, she is on Pulmicort 0.5 nebs every 12 hours. 3. We will increase the Solu-Medrol to 60 mg IV every 8 hours. 4. The patient is scheduled for a CT scan of the chest without contrast for further evaluation of pulmonary parenchyma. 5. Due to increase in her oxygen requirements and underlying severe ARDS, she might benefit from a pronation and to be placed on RotoProne bed. We will discuss with Dr. Dominguez, Web Support Engineer. 6. We will diurese with Bumex 1 mg IV x1. Discontinue IV fluids and watch for signs of fluid overload. 7. Continue with antibiotics per infectious disease. Dr. Benito is following. Her nasal washings for influenza is negative on 05/29/2018. Followup on blood cultures from 05/29/2018. We will obtain a sputum culture with Gram stain. Check strep pneumonia legionella urinary antigen. She might also benefit from Flovent nebs for refractory hypoxemia. 8. Gastrointestinal and deep venous thrombosis prophylaxis. The patient is on heparin subcutaneously. 9. Further recommendations will be based on hospital course. Thank you for this consultation and allowing us to participate in this patient's care. MD ULYSSES Zepeda/orly , 01:17 PM , 01:30 PM
[2018-05-30] MEDS ORDERED: Epoprostenol (30,000/mL) Neb 15 ML in Sodium Chlor 0.9% Inj 85 ML NEB SCH (16:00)
[2018-05-30] MEDS: Epoprostenol (30,000/mL) Neb 75 ML in Sodium Chlor 0.9% Inj 25 ML NEB SCH (16:33)
[2018-05-31] MEDS: Propofol 1000 mg/100 ml Inj 1,000 MG/100 ML BOTTLE IV.CONT PRN ×7 (02:23→22:08)
[2018-05-31] MEDS: Epoprostenol (30,000/mL) Neb 75 ML in Sodium Chlor 0.9% Inj 25 ML NEB SCH ×3 (02:24→18:10)
[2018-05-31 04:31] LABS: Hematocrit 43.5 % (35.0-46.0); Hemoglobin 12.6 gm/dL (11.6-15.3); Mean Corpuscular Hemoglobin 21.1 pg (27.0-34.0); Mean Corpuscular Volume 72.6 fL (80.0-100.0); Mean Platelet Volume 8.4 fL (7.0-11.0); Platelet Count 245 th/mm3 (150-450); Red Blood Count 5.99 mil/mm3 (4.00-5.30); Red Cell Distribution Width 22.4 % (11.6-17.2); White Blood Count 13.4 th/mm3 (4.0-11.0)
[2018-05-31 04:33] LABS: Mean Corpuscular HGB Conc 29.1 % (32.0-36.0)
[2018-05-31 05:00] LABS: Anion Gap 9 meq/L (5-15); Blood Urea Nitrogen 29 mg/dL (7-18); Calcium 9.1 mg/dL (8.5-10.1); Carbon Dioxide 27.2 meq/L (21.0-32.0); Chloride 103 meq/L (98-107); Glomerular Filtration Rate Greater Than 89 mL/min (>89); Glucose,Random 135 mg/dL (74-106); Magnesium 1.8 mg/dL (1.5-2.5); Potassium 3.8 meq/L (3.5-5.1); Sodium 139 meq/L (136-145)
[2018-05-31 05:01] LABS: Phosphorus 3.2 mg/dL (2.5-4.9)
[2018-05-31] MEDS: Chlorhexidine Gluconate 2% 1 Pack (2 Cloths) TOPICAL SCH (05:15)
[2018-05-31] MEDS: MethylPREDNISolone Sod Succinate Inj 40 MG/ML Vial IV.PUSH SCH ×3 (05:15→21:05)
--- NOTE | 2018-05-31 05:20 | XR ---
EXAM DATE: 05/31/2018 5:15 AM EDT AGE/SEX: 58 years / Female INDICATIONS: Shortness of breath CLINICAL DATA: This is the patient's subsequent encounter. Patient reports that signs and symptoms h ave been present for 2 days and indicates a pain score of Nonresponsive. MEDICAL/SURGICAL HISTORY: Non-responsive. Non-responsive. COMPARISON: HPO, CHEST 1V SINGLE AP, 05/29/2018. HPO, CHEST 1V SINGLE AP, 05/28/2018. . FINDINGS: ET tube tip well above the [place]. Gastric tube traverses the [id number]. There is interval develo pment of consolidation in the left lower lung with loss of delineation of the entire left hemidiaphra gm. Focal opacity in the right upper lobe similar to prior. The heart is upper normal in size. CONCLUSION: 1. Interval development of left lower lobe consolidation. 2. Stable right upper lung opacity. Electronically signed by: Rowdy Kim MD 05/31/2018 5:18 AM EDT
[2018-05-31 05:37] LABS: ABG Base Excess 2.3 mmol/L (-2-2); ABG PCO2 41 mmHg (38-42); ABG PO2 78 mmHG (61-120)
[2018-05-31] MEDS: Heparin - SQ 10,000 UNITS/ML Vial SQ SCH ×2 (08:20→15:54)
[2018-05-31] MEDS: Lisinopril 10 MG Tablet PO SCH (08:20)
[2018-05-31] MEDS: Gabapentin 100 MG Capsule PO SCH ×2 (08:21→21:04)
[2018-05-31] MEDS: Senna/Docusate Sodium 8.6/50 MG Tablet PO SCH ×2 (08:21→21:04)
[2018-05-31] MEDS: Sertraline 100 MG Tablet PO SCH (08:21)
[2018-05-31] MEDS: Famotidine PF Inj 20 MG/2 ML Vial IV.PUSH SCH ×2 (08:22→21:04)
[2018-05-31] MEDS: fentaNYL 10 mcg/mL Premix Drip 2,500 MCG/250 ML BAG IV.SIG PRN (08:22)
--- NOTE | 2018-05-31 08:37 | P.PNCC ---
Subjective Subjective Remarks/Hospital Course: 05/28: 58-year-old female with history of lupus, chronic pain syndrome, hypertension, depression, COPD on supplemental oxygen and tobaccoism, presents for an evaluation of generalized weakness with altered mental status. According to the he came from work this evening and found the on the floor. She was awake with generalized weakness and then he assisted her up and into the bathroom where she had an additional fall sustaining a laceration to the anterior aspect of her left ankle. Patient reportedly takes pain medication for chronic pain syndrome. Patient reportedly has not taken additional medication beyond her baseline dosing. No alcohol consumption reportedly. No recent fever or chills. Patient has been having increasing frequency of falls. 2 's knowledge she has had no head injury. Patient in the emergency department at [facility] did not complain of head pain neck pain back pain abdominal pain pelvic pain complain of bilateral ankle and left foot pain. She was initially placed on BiPAP, however due to worsening respiratory acidosis she was intubated by ED attending for respiratory failure. 05/29: Remains sedated, orally intubated on mechanical ventilation. PEEP increased to +14 05/30: remains intubated and sedated. intermittently agitated. PEEP down to + 12. still febrile. remains hypoxic on 70% fio2, spo2 91%. 05/31: fio2 remains high at 65%. on inhaled epoprostanol. spo2 slightly better at 94%. Objective Vital Signs / I&O: Vital Signs 05/30/18 08:41 05/30/18 11:00 05/30/18 12:39 Temperature 37.7 C H Pulse Rate 94 H 93 H 88 Respiratory Rate 16 16 16 Blood Pressure 130/72 Pulse Oximetry 91 L 05/30/18 15:00 05/30/18 16:49 05/30/18 16:52 Temperature 37.4 C Pulse Rate 87 87 Respiratory Rate 16 16 16 Blood Pressure 135/76 Pulse Oximetry 90 L 92 L 05/30/18 19:53 05/30/18 20:00 05/30/18 23:48 Temperature 37.5 C Pulse Rate 86 83 94 H Respiratory Rate 16 16 19 Blood Pressure 131/73 Pulse Oximetry 97 96 96 05/31/18 00:00 05/31/18 04:00 05/31/18 04:13 Temperature 37.2 C 37.4 C Pulse Rate 97 H 86 85 Respiratory Rate 16 16 16 Blood Pressure 138/70 136/74 Pulse Oximetry 95 95 95 05/31/18 07:44 Temperature Pulse Rate 97 H Respiratory Rate 21 Blood Pressure Pulse Oximetry 90 L Intake & Output 05/30/18 05/31/18 05/31/18 18:59 06:59 18:59 Intake Total 1457 / 1457 795 / 795 350 / 350 Output Total 1475 / 1475 Balance -18 / -18 795 / 795 350 / 350 Weight 100.5 kg Intake: IV 1210 / 1210 650 / 650 350 / 350 Diprivan 1000 mg/100 ml Inj 1, 400 / 400 400 / 400 100 / 100 000 mg In 100 ml @ 5 MCG/KG/MIN 2.94 mls/hr IV.CONT TITRATE PRN Rx#:[id number] NS Inj 1,000 ML @ 80 mls/hr IV. 560 / 560 CONT .[id number] BILL Rx#: [id number] Levaquin 750 mg Premix Inj 150 150 / 150 ML @ 100 mls/hr IV.SIG Q48H [facility] Rx#:[id number] Vancomycin Inj 1,000 MG In NS 250 / 250 Inj 250 ML @ 250 mls/hr IV.SIG ONCE ONE Rx#:[id number] 10 mcg/mL Premix Drip 250 / 250 2,500 mcg In 250 ml @ 50 MCG/HR 5 mls/hr IV.SIG TITRATE PRN Rx #:[id number] Flolan (30,000 ng/mL) Neb 75 ML 100 / 100 In NS Inj 25 ML @ 5 mls/hr NEB Q8H [facility] Rx#:[id number] Oral 0 / 0 Tube Feeding 157 / 157 145 / 145 Tube Irrigant 90 / 90 Output: Urine Amount (Catheter) 1475 / 1475 Female External 550 / 550 Indwelling Urethral Catheter 925 / 925 Other: # Incontinent Voids 2 # Bowel Movements 0 0 Result Diagrams: 05/31/18 03:51 05/31/18 03:51 Objective Remarks: Gen: middle-aged female, lying in bed, critically ill. HEENT: nc. at. perrl. mmm. Neck: No JVD. trachea midline. Chest/Pulm: on mech vent, equal chest rise. fio2 65%. CVS: normal rate, regular rhythm. sinus. GI/abdomen: soft, nontender, nondistended. no guarding. Extremities: warm bilaterally, no edema neuro: RASS -2. arouses. withdraws x 4. Assessment and Plan - Assessment and Plan Plan: Assessment: 58yF with COPD and chronic pain syndrome with acute hypoxic and hypercarbic respiratory failure secondary to community acquired pneumonia and acute COPD exacerbation. remains critically ill with minimal overall improvements. continue to wean fio2 as tolerated. will need more time for abx and steroids to improve respiratory function. Neuro: Chronic Pain Syndrome Chronic Opioid dependence - continue home gabapentin - fentanyl drip - continue propofol drip: goal RASS -2 - oxycodone 20mg po q4h scheduled - on home oxycodone SR 30mg po q12h and 30mg po q4h for breakthrough. currently on hold - frequent neuro checks Resp: Acute hypoxic and hypercarbic respiratory failure Acute COPD Exacerbation - severe, persistent Acute Community Acquired pneumonia- present on admission Tobaccoism - iv steroids - iv abx - wean fio2 for goal spo2 > 88% - scheduled and prn nebs - vent bundle, hob elevated - keep PEEP at +12 today - agree with decreasing tidal volume to 6cc/kg IBW - am abg - am cxr - chest CT - pulm consult - will prenatal genetic counselor smoking cessation after extubation. - continue inhaled Flolan today. CV: Septic Shock- resolved Type II NSTEMI secondary to demand ischemia Elevated troponins - off mivf - off dopamine - no evidence for ACS. will not anticoagulate - trops stable. will stop trending - 2d echo 05/29 preserved LV function, mildly dilated RV. Renal: Acute kidney injury- resolving - secondary to shock - continue strict i/o's - off mivf - daily bmp - no indication for moreno catheter FEN/GI: Acute protein calorie malnutrition- moderate - tube feeds - daily bmp, mg, phos - ICU electrolyte protocol - bowel regimen Heme/ID: Community Acquired Pneumonia- present on admission Septic shock- resolving, present on admission - continue iv abx - nasal wash for flu still pending - CT chest still pending - f/u cultures - ID consulted - daily cbc Endo: Diabetes - ssi - levemir Prophylaxis: - SCDs - SQH - pepcid Lines: - piv Dispo: - remain in ICU. remains very critically ill. Critical care time: 33 minutes, exclusive of separately billable procedures.
--- NOTE | 2018-05-31 13:03 | P.PNPL ---
Subjective Interval history: Patient is sedated with Diprivan and Fentanyl infusion started on Flolan nebs. On PRVC with PEEP:14 and FIO2 65%. Physical Exam Vital signs: Vital Signs 05/30/18 15:00 05/30/18 16:49 05/30/18 16:52 Temperature 99.4 F Pulse Rate 87 87 Respiratory Rate 16 16 16 Blood Pressure 135/76 Pulse Oximetry 90 L 92 L 05/30/18 19:53 05/30/18 20:00 05/30/18 23:48 Temperature 99.5 F Pulse Rate 86 83 94 H Respiratory Rate 16 16 19 Blood Pressure 131/73 Pulse Oximetry 97 96 96 05/31/18 00:00 05/31/18 04:00 05/31/18 04:13 Temperature 99.0 F 99.4 F Pulse Rate 97 H 86 85 Respiratory Rate 16 16 16 Blood Pressure 138/70 136/74 Pulse Oximetry 95 95 95 05/31/18 07:00 05/31/18 07:44 05/31/18 11:00 Temperature 98.1 F 99.3 F Pulse Rate 97 H 97 H 84 Respiratory Rate 21 21 16 Blood Pressure 132/75 115/60 Pulse Oximetry 89 L 90 L 90 L 05/31/18 11:08 05/31/18 12:29 Temperature Pulse Rate 85 Respiratory Rate 21 16 Blood Pressure Pulse Oximetry 91 L Intake & Output 05/30/18 05/31/18 05/31/18 18:59 06:59 18:59 Intake Total 1457 / 1457 795 / 795 450 / 450 Output Total 1475 / 1475 Balance -18 / -18 795 / 795 450 / 450 Weight 100.5 kg Intake: IV 1210 / 1210 650 / 650 450 / 450 Diprivan 1000 mg/100 ml Inj 1, 400 / 400 400 / 400 200 / 200 000 mg In 100 ml @ 5 MCG/KG/MIN 2.94 mls/hr IV.CONT TITRATE PRN Rx#:[id number] NS Inj 1,000 ML @ 80 mls/hr IV. 560 / 560 CONT .[id number] BILL Rx#: [id number] Levaquin 750 mg Premix Inj 150 150 / 150 ML @ 100 mls/hr IV.SIG Q48H BILL Rx#:[id number] Vancomycin Inj 1,000 MG In NS 250 / 250 Inj 250 ML @ 250 mls/hr IV.SIG ONCE ONE Rx#:[id number] fentaNYL 10 mcg/mL Premix Drip 250 / 250 2,500 mcg In 250 ml @ 50 MCG/HR 5 mls/hr IV.SIG TITRATE PRN Rx #:[id number] Flolan (30,000 ng/mL) Neb 75 ML 100 / 100 In NS Inj 25 ML @ 5 mls/hr NEB Q8H BILL Rx#:[id number] Oral 0 / 0 Tube Feeding 157 / 157 145 / 145 Tube Irrigant 90 / 90 Output: Urine Amount (Catheter) 1475 / 1475 Female External 550 / 550 Indwelling Urethral Catheter 925 / 925 Other: # Incontinent Voids 2 # Bowel Movements 0 0 - Constitutional mild distress, obese - Routine HEENT Exam Head: Present: normocephalic, atraumatic Eye: Present: EOMI, PERRL, normal accommodation, conjunctivae pink ENT: Present: mucous membranes moist - Routine Neck Exam Present: supple, full ROM, trachea midline - Routine Respiratory Exam Present: patient mechanically ventilated, CTA bilaterally - Routine Cardiovascular Exam Present: RRR, S1, S2 - Routine Abdominal Exam Present: soft, normoactive bowel sounds - Routine Extremities Exam Present: pulses intact - Routine Skin Exam Present: intact, dry - Routine Neurological Exam Present: altered mental status - Urinary Catheter Management Straight Cath placed during this visit: yes Reason for continuing: Not indwelling catheter Insertion date: 05/28/18 Insertion time: 21:20 Indwelling Urethral Catheter Cath placed during this visit: yes, but has since been removed by the nurse Reason for continuing: Decision to DC catheter Insertion date: 05/29/18 Insertion time: 00:55 Removal date: 05/30/18 Removal time: 10:57 Female External Cath placed during this visit: yes Reason for continuing: Not indwelling catheter Insertion date: 05/30/18 Insertion time: 10:58 Assessment and Plan - Plan 1. VDRF 2. Severe ARDS 3. Diffuse interstitial lung disease. 4. Focal density right upper lobe. 5. Leukocytosis. 6. Acute kidney injury, improving. 7. Chronic obstructive pulmonary disease. 8. Diabetes mellitus. 9. Elevated troponin. Plan Continue with vent support and maintain sats >92%. Bronchodilators- DuoNeb, Pulmicort 0.5 nebs every 12 hours. Continue Solu-Medrol to 60 mg IV every 8 hours. Continue Flolan nebs 5ml/hr(30,000 ng) If no improvements in her oxygenation patient might benefit from prone position. Discussed with Dr. Dominguez. On PRVC RR 16, TV 600, IT:1.2, PEEP:14, FIO2: 65% Will place on low TV ventilation per [employer] trial Decrease TV 500 and increase RR 20 CT chest when stable Diurese with Bumex 1mg x1 Abx per ID- On Levaquin, Vanco x 1 dose yesterday. Nasal washings for influenza , strep pneumonia, Legionella urinary ag all negative Followup on sputum cx GI/DVT prophylaxis. on heparin subcutaneously.
[2018-05-31 14:27] LABS: ABG Base Excess 3.4 mmol/L (-2-2); ABG PCO2 41 mmHg (38-42); ABG PO2 67 mmHG (61-120)
--- NOTE | 2018-05-31 14:43 | P.PNID ---
Subjective Remarks: Patient is a 58-year-old female, brought into the hospital for evaluation of generalized weakness, and some lethargy. Patient is taking medication for chronic pain syndrome. She apparently has been very weak recently and on the day of admission when the came home he found the patient on the floor. She was apparently awake and was complaining of generalized weakness. After that she sustained another fall and got a laceration on her left leg. There was mention of complaints of shortness of breath. There was no fever or chills lately no chest pain, no abdominal pain. She did have pain in the ankle and the foot. Evaluation in the ED showed that she was quite lethargic and she ended up getting intubated. Patient has been intubated since. She is currently on the vent, FiO2 at 70% and PEEP of 12. She has been running fevers. Her chest x-ray has shown some interstitial infiltrate and there is a suggestion of an upper lung mass. Sputum culture is pending. Blood cultures are negative so far. Influenza testing is negative. Her initial WBC was 14, 000 and is down to 11,000. Lactic acid is normal. Patient is going to have CT of the chest today and that is still pending. She is currently on Levaquin. Infectious disease consultation has been requested to assist with evaluation and treatment. Notes reviewed Temps ok BP ok On the vent - FiO2 at 0.65, PEEP 14 WBC slightly higher Sputum prelim normal stephanie CXR now with L base consolidation, ?fluid CT chest not done yet Creatinine now normal Antibiotics: Levaquin Past Medical History: Amputation of index finger Diabetes History of COPD History of chronic back pain History of hysterectomy History of lupus Knee injury Shoulder injury Allergies/Adverse Reactions: Allergies penicillin G Allergy (Severe, Verified 05/30/18 11:43) UNKNOWN FROM CHILDHOOD Patient has tolerated cephalosporins in the past Sulfa (Sulfonamide Antibiotics) Allergy (Unknown, Verified 05/28/18 20:13) unknown from childhood Objective Vital Signs 05/30/18 15:00 05/30/18 16:49 05/30/18 16:52 Temperature 99.4 F Pulse Rate 87 87 Respiratory Rate 16 16 16 Blood Pressure 135/76 Pulse Oximetry 90 L 92 L 05/30/18 19:53 05/30/18 20:00 05/30/18 23:48 Temperature 99.5 F Pulse Rate 86 83 94 H Respiratory Rate 16 16 19 Blood Pressure 131/73 Pulse Oximetry 97 96 96 05/31/18 00:00 05/31/18 04:00 05/31/18 04:13 Temperature 99.0 F 99.4 F Pulse Rate 97 H 86 85 Respiratory Rate 16 16 16 Blood Pressure 138/70 136/74 Pulse Oximetry 95 95 95 05/31/18 07:00 05/31/18 07:44 05/31/18 11:00 Temperature 98.1 F 99.3 F Pulse Rate 97 H 97 H 84 Respiratory Rate 21 21 16 Blood Pressure 132/75 115/60 Pulse Oximetry 89 L 90 L 90 L 05/31/18 11:08 05/31/18 12:29 05/31/18 12:41 Temperature Pulse Rate 85 Respiratory Rate 21 16 16 Blood Pressure Pulse Oximetry 91 L 05/31/18 13:40 Temperature Pulse Rate Respiratory Rate 21 Blood Pressure Pulse Oximetry 91 L Intake & Output 05/30/18 05/31/18 05/31/18 18:59 06:59 18:59 Intake Total 1457 / 1457 795 / 795 550 / 550 Output Total 1475 / 1475 Balance -18 / -18 795 / 795 550 / 550 Weight 100.5 kg Intake: IV 1210 / 1210 650 / 650 550 / 550 Diprivan 1000 mg/100 ml Inj 1, 400 / 400 400 / 400 200 / 200 000 mg In 100 ml @ 5 MCG/KG/MIN 2.94 mls/hr IV.CONT TITRATE PRN Rx#:[id number] NS Inj 1,000 ML @ 80 mls/hr IV. 560 / 560 CONT .[id number] [facility] Rx#: [id number] Levaquin 750 mg Premix Inj 150 150 / 150 ML @ 100 mls/hr IV.SIG Q48H [facility] Rx#:[id number] Vancomycin Inj 1,000 MG In NS 250 / 250 Inj 250 ML @ 250 mls/hr IV.SIG ONCE ONE Rx#:[id number] fentaNYL 10 mcg/mL Premix Drip 250 / 250 2,500 mcg In 250 ml @ 50 MCG/HR 5 mls/hr IV.SIG TITRATE PRN Rx #:[id number] Flolan (30,000 ng/mL) Neb 75 ML 100 / 100 100 / 100 In NS Inj 25 ML @ 5 mls/hr NEB Q8H [facility] Rx#:[id number] Oral 0 / 0 Tube Feeding 157 / 157 145 / 145 Tube Irrigant 90 / 90 Output: Urine Amount (Catheter) 1475 / 1475 Female External 550 / 550 Indwelling Urethral Catheter 925 / 925 Other: # Incontinent Voids 2 # Bowel Movements 0 0 05/30/18 16:40 Sputum - Endotracheal Gram Stain - Final 05/30/18 16:40 Sputum - Endotracheal Sputum Culture - Preliminary Heavy growth normal respiratory stephanie at 24 hours 05/29/18 17:50 Sputum - Endotracheal Gram Stain - Final 05/29/18 17:50 Sputum - Endotracheal Sputum Culture - Final Heavy growth normal respiratory stephanie 05/29/18 18:48 Blood - Peripheral Aerobic Blood Culture - Preliminary No growth in 2 days 05/29/18 18:48 Blood - Peripheral Anaerobic Blood Culture - Preliminary No growth in 2 days 05/29/18 18:43 Blood - Peripheral Aerobic Blood Culture - Preliminary No growth in 2 days 05/29/18 18:43 Blood - Peripheral Anaerobic Blood Culture - Preliminary No growth in 2 days 05/30/18 17:00 Urine - Catheterized Urine Streptococcus pneumoniae Antigen ( M - Final Presumptive negative for streptococcus pneumoniae antigen, suggesting no current or recent infection. Infection due to Streptococcus pneumoniae cannot be ruled out since the antigen present in the sample may be below the detection limit of the test. 05/30/18 17:00 Urine - Catheterized Urine Legionella Antigen - Final Presumptive negative for Legionella pneumophila serogroup 1 antigen in urine, suggesting no recent or recurrent infection. Infection due to Legionella cannot be ruled out since other serogroups and species may cause disease, antigen may not be present in urine in early infection, and the level of antigen present in the urine may be below the detection limit of the test. 05/29/18 17:45 Nasal Wash Influenza Types A,B Antigen - Final Negative for FLU A and B antigen Infection due to influenza A or B cannot be ruled out since the antigen present in the sample may be below the detection limit of the test. Lab - Hematology Results 05/30/18 05/31/18 04:05 03:51 WBC 11.2 H 13.4 H RBC 6.01 H 5.99 H Hgb 12.7 12.6 Hct 43.2 43.5 MCV 71.8 L 72.6 L MCH 21.1 L 21.1 L MCHC 29.4 L 29.1 L RDW 22.9 H 22.4 H Plt Count 264 245 MPV 8.8 8.4 Lab - Chemistry Results 05/30/18 05/31/18 04:05 03:51 Sodium 139 139 Potassium 4.3 D 3.8 Chloride 104 103 Carbon Dioxide 25.1 27.2 Anion Gap 10 9 BUN 34 H 29 H Creatinine 1.06 H 0.67 Estimated GFR 54 L Greater than 89 Random Glucose 126 H 135 H Calcium 9.0 D 9.1 Phosphorus 3.2 D Magnesium 1.8 Total Bilirubin 0.6 AST 21 ALT 15 Alkaline Phosphatase 77 Total Protein 6.8 Albumin 2.8 L Imaging: ITS Impressions Cervical Spine CT 05/28/18 20:41 CONCLUSION: 1. Degenerative disc disease basically isolated C5-6 level as detailed above. 2. No fracture. Spinal canal and neural foramina appear to be adequate throughout without cord or nerve root compromise. Head CT 05/28/18 20:41 CONCLUSION: Negative exam. No acute intracranial process, trauma or fracture. Ankle X-Ray 05/28/18 20:43 CONCLUSION: No evidence of recent bony injury. Diffuse soft tissue prominence. Foot X-Ray 05/28/18 20:43 CONCLUSION: 1. Soft tissue defect/laceration anterior to the ankle. 2. Osseous structures are intact. Chest X-Ray 05/31/18 05:00 CONCLUSION: 1. Interval development of left lower lobe consolidation. 2. Stable right upper lung opacity. Physical Exam: GENERAL: sedated on the vent, not in respiratory distress. SKIN: Warm and dry. No generalized rash, no ecchymoses and no evidence of embolic lesions. HEAD: Atraumatic. Normocephalic. No temporal wasting, or tenderness. EYES: [place] conjunctiva. No petechia or hemorrhage. Pupils equal, round and reactive to light. No scleral icterus. No injection or drainage. EARS, NOSE AND THROAT: Nose without bleeding or purulent nasal discharge. Mucous membranes pink and moist. She is orally intubated NECK: Trachea midline. Supple and not tender, no meningeal signs CARDIOVASCULAR: Regular rate and rhythm. No murmurs, rubs or gallops heard RESPIRATORY: Coarse breath sounds bilaterally. Decreased at the bases ABDOMEN: Soft, non-tender, nondistended. Bowel sounds present and normoactive. No guarding. No rebound. No organomegaly. EXTREMITIES: No clubbing, cyanosis. Has mild pedal edema. Sutured laceration L distal ankle, with dry intact dressing. NEUROLOGICAL: Sedated. PSYCHIATRIC: Unable to assess. LINE: No evidence of infection Assessment and Plan - Plan Impression Sepsis on admission Fever CAP, ?mass in lung - C/S pending Respiratory failure Known COPD, smoker Renal insufficiency Leukocytosis, slightly higher, could partly be due to steroids Recommendation Follow C/S Will not give any further Vanco Continue Levaquin, increase dose For CT chest Follow temps Monitor progress Dr Cedillo covering this weekend
--- NOTE | 2018-05-31 18:27 | P.CONPAL ---
Consult Service: Palliative Care Requesting Physician: Kapil Saldivar Reason for Consult: a. To assist with evaluation and management of symptoms including: Shortness of breath, pain and physical deconditioning b. To assist medical decision maker(s) with: better understanding of current medical conditions; weighing benefits/burdens of medical treatment options; making medical treatment decisions. Primary Care Provider: Oren Robbins MD History of Present Illness History of Present Illness: Mrs Stroud is 58 years old patient with a past medical history significant for lupus, chronic pain syndrome, hypertension, depression, COPD on supplemental oxygen at home, tobaccoism stage III cervical cancer s/p hysterectomy. Patient was brought to the emergency room on 05/28/18 for further evaluation after for generalized weakness, altered mental status and fall. She was found by her on the floor with altered mental status, generalized weakness. After patient's assisted her to the bathroom she sustained a laceration to the anterior aspect of the left ankle. Patient is on pain medication for chronic pain syndrome and was reportedly not have taken more than her normal dose. ER course: * Vital signs: Temperature 98.8F, pulse 102, respiratory rate 24, BP 108/53 O2 saturation 75% * Laboratory workup revealing WBC 14.0, hemoglobin 13.8, hematocrit 45.5, platelet count 402, PT 11.3, INR 1.1, APTT 29.6, sodium 136, potassium 4.8, BUN/ creatinine 39/2.40, random glucose 121, calcium 8.3, ammonia 46, troponin 0 0.77 , total protein 7.4, albumin 3.2, TSH 0.612 * ABG results showing pH 7.25, PCO2 79, PO2 57, HCO3 34, base excess 6.8, carboxyhemoglobin 8.0, O2 saturation 77% on 6 L simple mask. * EKG revealed sinus tachycardia right atrial enlargement left atrial enlargement. * Urinalysis negative for leukocyte esterase and nitrates * Head CT revealed no acute intracranial process. * Toxicology positive for opiates * Chest x-ray revealed 3.5 cm possible mass in the right upper lung, interstitial markings which may represent underlying pulmonary venous hypertension or underlying interstitial disease and cardiomegaly * CT cervical spine revealed degenerative disc disease basically isolated C5-6 level and no fracture. Spinal canal and neuroforamina appeared to be adequate throughout without cord or nerve root compromise. * Left ankle x-ray revealed no acute fracture * Left lower extremity laceration sutured * Patient orotracheally intubated and admitted for further evaluation and treatment under critical care management physicians. Echocardiogram on 05/29/18 revealed normal LV size and systolic function with EF of 55-60%. Patient has been febrile. Blood cultures and influenza testing has been negative. Infectious disease Dr. Benito consulted on 05/30/18 for evaluation and management of patient with sepsis, recommended administering a dose of vancomycin, continue Levaquin, CT chest and follow cultures. Pulmonology Dr. Dutton consulted on 05/30/18 for management of patient with respiratory failure and abnormal chest x-ray findings, recommended use of bronchodilators, Solu-Medrol, x1 Bumex dose and checking strep pneumonia Legionella. Clinical course complicated with hypoxia and need for high FiO2. Palliative care consulted to assist with managing symptoms and establishing goals of medical treatment. Chest x-ray on 05/31/18 revealing interval development of left lower lobe consolidation and stable right upper lung opacity. Laboratory workup today revealing WBC 13.4, hemoglobin 12.6, hematocrit 43.5, platelet count 245, sodium 139, potassium 3.8, BUN/creatinine 29/0.67, random glucose 135 , calcium 9.1, phosphorus 3.2, magnesium 1.8. ABG results this afternoon revealed pH of 7.44, PCO2 41, PO2 67, HCO3 27, O2 saturation 99% on vent settings PRVC/AC 20/500/IT1.2s/PEEP 14/ 65%. Patient seen and examined in the room and CVICU. Patient is intubated, sedated on mechanical ventilation. Patient currently requiring FiO2 65% with O2 saturation at 88% and a PEEP of +14. Patient also has Flolan infusion. Patient spontaneously moving all 4 extremities. Patient is currently on fentanyl infusion at 250 mcg/h and propofol infusion at 60 mcg/kg/min. Tube feeding on hold due to high tube feed residuals. Long meeting with patient's Trace Stroud and patient's [id number] in waiting room. Introduced palliative care, explained its role in symptom management and establishment of goals of medical treatment. Obtained psychosocial, past medical history and events leading to this hospitalization. Patient has never completed advanced directives but he has always told he he wishes. Patient's appropriately tearful as he explains that since 2014 after patient had hysterectomy post diagnosis of stage III cervical cancer in 2014, patient has always told him that she would never want to be put on life support or go through any invasive procedure for anything despite medical advice he or she is given. He went on to state that she has told him that if ever he finds her on the floor unresponsive to let her peacefully. Patient has told he that she would never want a tracheostomy or a PEG tube and would never want to live in a shelter. Addressed CODE STATUS, discussed CPR limitations, complications and benefits. Patient's elected DO NOT RESUSCITATE. Patient's wants to see how she will do over the weekend and if patient continues to deteriorate he would like to proceed with compassionately withdrawing patient from life support. Patient's also requested NO INVASIVE PROCEDURES FOR PATIENT. Patient`s very tearful and states that he wants to honor patient`s wishes and he knows that patient never wanted to be on life support but he was hopeful that she may improve medically when he decided to have her intubated. Introduced hospice philosophy and benefits. Patient spouse receptive to transitioning patient to comfort care if he decides to proceed with compassionate withdrawal from life support. Palliative care contact information provided. . Function/Cognitive Trajectory: Patient resided at home with her . Patient has been on oxygen since 2015 after she was diagnosed with COPD but mostly needed it prn. Since December 2017 after patient had bronchitis/pneumonia she has been requiring use of oxygen most of the time. Patient was independent with all the ADLs though she was limited due to shortness of breath with activity. She could only ambulate short distances due to shortness of breath. She was able to verbalize he needs. Patient was diagnosed with stage III cervical cancer in 2014 and she underwent total hysterectomy. Patient was supposed to follow-up with an oncologist but she never did. She was then diagnosed with COPD in 2015 and that is when she started using supplemental oxygen prn. In December of 2017 she had pneumonia and bronchitis and since then has been needing oxygen all the time and is been showing more signs of shortness of breath with activity and even at rest. Patient follows with a pain management doctor for chronic back pain, arthritic pain. Patient's also reported increased weakness in the past few weeks and multiple falls. . Review of Systems Constitutional: Reports fever(s), Reports weakness, Denies weight loss Eyes: Denies bulging eyes, Denies loss of vision Ears, Nose, Mouth, and Throat: Denies abnormal hearing, Denies nasal congestion , Denies tongue swelling Cardiovascular: Reports shortness of breath, Reports shortness of breath with activity, Reports shortness of breath when lying down, Denies foot swelling Respiratory: Reports chest congestion, Reports cough, Reports shortness of breath, Reports shortness of breath with activity, Reports wheezing Gastrointestinal: Denies change in stools, Denies difficulty swallowing, Denies loose stools, Denies nausea, Denies vomiting, Denies vomiting blood Genitourinary: Denies urinary incontinence Skin/Breast: Denies dry skin, Denies non-healing lesions, Denies yellowing of the skin Neurologic: Reports confusion, Reports frequent falls, Denies abnormal hearing Psychiatric: Reports anxiety, Denies difficulty concentrating Endocrine: Denies increased urination Hematologic/Lymphatic: Denies easy bruising Review of systems obtained from family, EMR and clinical observation. . [facility] - History History Provided By: Medical Record - Medical History Medical History: Medical History (Last Updated 05/31/18 @ 20:34 by Gustabo Grider) Cervical cancer Diabetes History of COPD History of chronic back pain History of lupus Knee injury Shoulder injury - Surgical History Surgical History: Surgical History (Last Updated 05/31/18 @ 18:27 by Gustabo Grider) Amputation of index finger (Resolved) History of hysterectomy (Resolved) - Family History Family History: Family History (Last Updated 05/31/18 @ 20:35 by Gustabo Grider) Father Dementia - Social History I have reviewed the patient's Social History: Yes - Tobacco History Second Hand Smoke Exposure: Yes Tobacco Use In Past 30 Days: Yes Smoking Status: Current every day smoker Tobacco Type: Cigarettes Packs Per Day: 2 - Alcohol History How Often Do You Have a Drink Containing Alcohol: Never - Substance Use History Substance History: No History of Abuse - Travel History Recent Travel in the [place] Within the Last 8 Weeks: No Recent Travel Out of the Country Within the Last 8 Weeks: No - Immunization History Tetanus Immunization: Unsure Medications and Allergies Active Medications: Active Medications Acetaminophen (Tylenol) 650 mg PO Q6H PRN PRN Reason: PAIN 1-10 AND/OR FEVER >101F Last Admin: 05/29/18 22:10 Dose: 650 mg Al Hydroxide/Mg Hydroxide (Milk Of Dipak Harrison) 30 ml PO Q12H PRN PRN Reason: Mild Constipation Albuterol (Duoneb Neb (Prn)) 1 ampul NEB Q2HR NEB PRN PRN Reason: WHEEZING Albuterol (Duoneb Neb (Billie)) 1 ampul NEB Q4HR NEB BILLIE Last Admin: 05/31/18 12:29 Dose: 1 ampul Bisacodyl (Dulcolax Supp) 10 mg RECTAL DAILY PRN PRN Reason: SEVERE CONSITIPATION Budesonide (Pulmocort Respule Neb) 0.5 mg NEB Q12HR NEB [facility] Last Admin: 05/31/18 07:42 Dose: 0.5 mg Chlorhexidine Gluconate (Chlorhexidine 2% Cloth) 3 pack TOPICAL DAILY@0400 PRN PRN Reason: Extra cloth needed Stop: 06/03/18 03:59 Chlorhexidine Gluconate (Chlorhexidine 2% Cloth) 3 pack TOPICAL DAILY@0400 [facility] Stop: 06/03/18 03:59 Last Admin: 05/31/18 05:15 Dose: 3 pack Famotidine (Pepcid Pf Inj) 20 mg IV.PUSH Q12HR [facility] Last Admin: 05/31/18 08:22 Dose: 20 mg Gabapentin (Neurontin) 100 mg PO HS [facility] Last Admin: 05/30/18 21:56 Dose: 100 mg Gabapentin (Neurontin) 200 mg PO DAILY [facility] Last Admin: 05/31/18 08:21 Dose: 200 mg Heparin Sodium (Porcine) (Heparin Inj) 5,000 units SQ Q8H [facility] Last Admin: 05/31/18 15:54 Dose: 5,000 units Propofol (Diprivan 1000 Mg/100 Ml Inj) 1,000 mg in 100 mls @ 2.94 mls/hr IV.CONT TITRATE PRN; Protocol PRN Reason: Per Protocol Last Admin: 05/31/18 11:18 Dose: 60 mcg/kg/min, 35.28 mls/hr Fentanyl (Fentanyl 10 Mcg/Ml Premix Drip) 2,500 mcg in 250 mls @ 5 mls/hr IV.SIG TITRATE PRN; Protocol PRN Reason: Per Protocol Last Admin: 05/31/18 08:22 Dose: 150 mcg/hr, 15 mls/hr Magnesium Sulfate 4 gm/ Sodium (Chloride) 100 mls @ 50 mls/hr IV.SIG UNSCH PRN PRN Reason: For Magnesium 0.9 - 1.1 mg/dL Magnesium Sulfate 2 gm/ Sodium (Chloride) 100 mls @ 50 mls/hr IV.SIG UNSCH PRN PRN Reason: For Magnesium 1.2 - 1.6 mg/dL Potassium Chloride (Kcl 40 Meq Premix Inj) 40 meq in 100 mls @ 25 mls/hr IV.SIG Q2H PRN PRN Reason: For Potassium 2.8 - 3.2 mEq/L Potassium Chloride (Kcl 20 Meq Premix Inj) 20 meq in 100 mls @ 50 mls/hr IV.SIG Q2H PRN PRN Reason: For Potassium 3.3 - 3.5 mEq/L Potassium Chloride (Kcl 40 Meq Premix Inj) 40 meq in 100 mls @ 25 mls/hr IV.SIG UNSCH PRN PRN Reason: For Potassium 3.3 - 3.5 mEq/L Potassium Phosphate 30 mmol/ (Sodium Chloride) 260 mls @ 42 mls/hr IV.SIG UNSCH PRN PRN Reason: SEE LABEL COMMENTS Sodium Phosphate 30 mmol/ (Sodium Chloride) 260 mls @ 42 mls/hr IV.SIG UNSCH PRN PRN Reason: For Phosphorus < 2.5 mg/dL Potassium Chloride (Kcl 20 Meq Premix Inj) 20 meq in 100 mls @ 50 mls/hr IV.SIG Q2H PRN PRN Reason: For Potassium 2.8 - 3.2 mEq/L Epoprostenol Sodium 75 ml/ (Sodium Chloride) 100 mls @ 5 mls/hr NEB Q8H [facility] Last Admin: 05/31/18 13:34 Dose: 5 mls/hr Levofloxacin/Dextrose (Levaquin 750 Mg Premix Inj) 150 mls @ 100 mls/hr IV.SIG Q24H [facility] Last Admin: 05/31/18 15:54 Dose: 100 mls/hr Lactulose (Lactulose Liq) 30 ml PO DAILY PRN PRN Reason: SEVERE CONSITIPATION Lisinopril (Prinivil) 10 mg PO DAILY [facility] Last Admin: 05/31/18 08:20 Dose: 10 mg Magnesium Oxide (Mag-Ox) 800 mg PO UNSCH PRN PRN Reason: For Magnesium 1.2 - 1.6 mg/dL Methylprednisolone Sodium Succinate (Solumedrol Inj) 60 mg IV.PUSH Q8HR [facility] Last Admin: 05/31/18 13:12 Dose: 60 mg Ondansetron HCl (Zofran Inj) 4 mg IV.PUSH Q6H PRN PRN Reason: NAUSEA OR VOMITING Oxycodone HCl (Roxicodone) 30 mg PO Q4H PRN PRN Reason: BREAKTHROUGH PAIN Oxycodone HCl (Oxycontin Cr) 30 mg PO BID [facility] Last Admin: 05/29/18 21:57 Dose: 30 mg Oxycodone HCl (Roxicodone) 20 mg PO Q4HR [facility] Last Admin: 05/31/18 15:54 Dose: 20 mg Potassium Bicarb/Potassium Chloride (K-Lyte Cl Eff) 50 meq PO UNSCH PRN PRN Reason: For Potassium 3.3 - 3.5 mEq/L Potassium Phosphate (K-Phos Original) 2,000 mg PO Q4H PRN PRN Reason: Phosphorus Less Than 2.5 mg/dL Potassium Phosphate (K-Phos Original) 2,000 mg PO UNSCH PRN PRN Reason: SEE LABEL COMMENTS Senna/Docusate Sodium (Thao-Colace) 1 tab PO BID [facility] Last Admin: 05/31/18 08:21 Dose: 1 tab Sennosides (Senokot) 17.2 mg PO Q12H PRN PRN Reason: Moderate Constipation Sertraline HCl (Zoloft) 100 mg PO DAILY [facility] Last Admin: 05/31/18 08:21 Dose: 100 mg Sodium Chloride (Ns Flush) 2 ml IV.FLUSH BID [facility] Last Admin: 05/31/18 08:19 Dose: 2 ml Allergies Allergy/AdvReac Type Severity Reaction Status Date / Time penicillin G Allergy Severe UNKNOWN Verified 05/30/18 11:43 FROM CHILDHOOD Sulfa (Sulfonamide Allergy Unknown unknown Verified 05/28/18 20:13 Antibiotics) from childhood Home Medications Medication Instructions Recorded Confirmed Type Zoloft 100 mg PO DAILY 05/28/18 05/28/18 History gabapentin 100 mg PO HS 05/28/18 05/28/18 History gabapentin 200 mg PO DAILY 05/28/18 05/28/18 History lisinopril 10 mg PO DAILY 05/28/18 05/28/18 History metformin 500 mg PO BID 05/28/18 05/28/18 History oxycodone 30 mg PO Q4-6H PRN 05/28/18 05/28/18 History oxycodone [OxyContin] 30 mg PO Q12H 05/28/18 05/28/18 History Advance Directives Living Will: No Healthcare Surrogate: No Health Care Surrogate Name and Number: HCP: Trace Stroud [phone] home/ Power of Energy Technician: No Today's verbally stated goals: Family would like to see how patient does over the weekend. If patient continues to deteriorate patient's would like to proceed with compassionate withdrawal from life support in pharmacist in charge owner of patient's wishes. . Ethical and Legal Issues: None identified at this time. . Physical Exam Vital Signs: Vital Signs - 24 hr 05/30/18 19:53 05/30/18 20:00 05/30/18 23:48 Temperature 99.5 F Pulse Rate 86 83 94 H Respiratory Rate 16 16 19 Blood Pressure 131/73 Pulse Oximetry 97 96 96 05/31/18 00:00 05/31/18 04:00 05/31/18 04:13 Temperature 99.0 F 99.4 F Pulse Rate 97 H 86 85 Respiratory Rate 16 16 16 Blood Pressure 138/70 136/74 Pulse Oximetry 95 95 95 05/31/18 07:00 05/31/18 07:44 05/31/18 11:00 Temperature 98.1 F 99.3 F Pulse Rate 97 H 97 H 84 Respiratory Rate 21 21 16 Blood Pressure 132/75 115/60 Pulse Oximetry 89 L 90 L 90 L 05/31/18 11:08 05/31/18 12:29 05/31/18 12:41 Temperature Pulse Rate 85 Respiratory Rate 21 16 16 Blood Pressure Pulse Oximetry 91 L 05/31/18 13:40 05/31/18 15:00 05/31/18 16:10 Temperature 99.5 F Pulse Rate 98 H Respiratory Rate 21 23 21 Blood Pressure 129/71 Pulse Oximetry 91 L 90 L 89 L I&O: Intake & Output 05/29/18 05/30/18 05/31/18 06/01/18 06:59 06:59 06:59 06:59 Intake Total 4150 / 4150 4780 / 4780 2252 / 2252 550 / 550 Output Total 1190 / 1190 1810 / 1810 1475 / 1475 Balance 2960 / 2960 2970 / 2970 777 / 777 550 / 550 Weight 102.5 kg 101 kg 100.5 kg Physical Exam: CONSTITUTIONAL/GENERAL: This is an adequately nourished patient, in no apparent distress. TUBES/LINES/DRAINS: ETT, OGT, PIV, bilateral soft restraints SKIN: No jaundice, rashes, or lesions. Ecchymoses on upper extremities. No wounds seen anteriorly. Skin temperature appropriate. Not diaphoretic. HEAD: Atraumatic. Normocephalic. EYES: Pupils equal and round and slightly reactive to light. No scleral icterus. No injection or drainage. Fundi not examined. ENT: Hearing grossly normal. Nose without bleeding or purulent drainage. Orotracheally intubated. Moist oral mucosa NECK: Trachea midline. Supple, nontender. CARDIOVASCULAR: Regular rate and rhythm without murmurs, gallops, or rubs. No JVD. Peripheral pulses symmetric. RESPIRATORY/CHEST: Symmetric, unlabored respirations-on ventilator. No wheezing , rhonchi. Diminished breath sounds. GASTROINTESTINAL: Abdomen soft, non-tender, nondistended. Bowel sounds present. GENITOURINARY: Without palpable bladder distension. External female catheter MUSCULOSKELETAL: Extremities without clubbing, cyanosis, or edema. No joint tenderness or effusion noted. No calf tenderness. No mottling or clubbing. LYMPHATICS: Did not assess NEUROLOGICAL: Intubated, sedated. Spontaneously moving all 4 extremities. PSYCHIATRIC: Unable to assess. Currently calm . Diagnostic Tests Laboratory: Laboratory Results - last 72 hr 05/28/18 05/28/18 05/28/18 20:50 20:50 20:50 CBC w Diff Slide review pending WBC 14.0 H RBC 6.21 H Hgb 13.8 Hct 45.5 MCV 73.2 L MCH 22.2 L MCHC 30.3 L RDW 21.7 H Plt Count 402 MPV 8.3 Neut % (Auto) 83.2 H Lymph % (Auto) 6.9 L [place] % (Auto) 7.4 Eos % (Auto) 0.0 Baso % (Auto) 2.5 H Neut # (Auto) 11.6 H Lymph # (Auto) 1.0 [place] # (Auto) 1.0 H Eos # (Auto) 0.0 Baso # (Auto) 0.4 H WBC Differential . Diff Scan Auto diff confirmed Differential Comment . Platelet Estimate Normal Platelet Morphology Normal Tear Drop Cells 1+ H Ovalocytes 1+ H PT 11.3 INR 1.1 APTT 29.6 Puncture Site Patient Temperature O2 Saturation ABG pH ABG pCO2 ABG pO2 ABG HCO3 ABG O2 Content ABG Base Excess ABG Methemoglobin Connor Test Hemoglobin Carboxyhemoglobin O2 Delivery Device Liter Flow Vent Setting Inspired O2 Critical Value Sodium 136 Potassium 4.8 Chloride 97 L Carbon Dioxide 32.1 H Anion Gap 7 BUN 39 H Creatinine 2.40 H Estimated GFR 21 L POC Glucose Random Glucose 121 H Lactic Acid Calcium 8.3 L Phosphorus Magnesium 2.4 Total Bilirubin 0.5 AST 26 ALT 18 Alkaline Phosphatase 102 Ammonia Total Creatine Kinase 142 Troponin I 0.77 H* Total Protein 7.4 Albumin 3.2 L TSH 0.612 Urine Color Urine Clarity Urine pH Ur Specific [place] Urine Protein Urine Glucose (UA) Urine Ketones Urine Occult Blood Urine Nitrate Urine Bilirubin Urine Ictotest Urine Urobilinogen Ur Leukocyte Esterase Urine RBC Urine WBC Ur Squamous Epith Cells Amorphous Sediment Micro UA Comment Ur Microscopic Review Urine Culture Comments Nasal Screen MRSA (PCR) Random Vancomycin Urine Opiates Screen Ur Barbiturates Screen Ur Amphetamines Screen U Benzodiazepines Scrn Urine Cocaine Screen U Cannabinoids Screen Serum Alcohol Less than 3 05/28/18 05/28/18 05/28/18 20:50 20:50 21:00 CBC w Diff WBC RBC Hgb Hct MCV MCH MCHC RDW Plt Count MPV Neut % (Auto) Lymph % (Auto) [place] % (Auto) Eos % (Auto) Baso % (Auto) Neut # (Auto) Lymph # (Auto) [place] # (Auto) Eos # (Auto) Baso # (Auto) WBC Differential Diff Scan Differential Comment Platelet Estimate Platelet Morphology Tear Drop Cells Ovalocytes PT INR APTT Puncture Site Right brachial Patient Temperature 98.6 O2 Saturation 77 L* ABG pH 7.25 L* ABG pCO2 79 H* ABG pO2 57 L* ABG HCO3 34 H ABG O2 Content 14.4 ABG Base Excess 6.8 H ABG Methemoglobin 1.3 Connor Test Y Hemoglobin 13.4 Carboxyhemoglobin 8.0 H* O2 Delivery Device Sm Liter Flow 6.00 Vent Setting Inspired O2 Critical Value Yes Sodium Potassium Chloride Carbon Dioxide Anion Gap BUN Creatinine Estimated GFR POC Glucose Random Glucose Lactic Acid 1.2 Calcium Phosphorus Magnesium Total Bilirubin AST ALT Alkaline Phosphatase Ammonia 46 H Total Creatine Kinase Troponin I Total Protein Albumin TSH Urine Color Urine Clarity Urine pH Ur Specific [place] Urine Protein Urine Glucose (UA) Urine Ketones Urine Occult Blood Urine Nitrate Urine Bilirubin Urine Ictotest Urine Urobilinogen Ur Leukocyte Esterase Urine RBC Urine WBC Ur Squamous Epith Cells Amorphous Sediment Micro UA Comment Ur Microscopic Review Urine Culture Comments Nasal Screen MRSA (PCR) Random Vancomycin Urine Opiates Screen Ur Barbiturates Screen Ur Amphetamines Screen U Benzodiazepines Scrn Urine Cocaine Screen U Cannabinoids Screen Serum Alcohol 05/28/18 05/28/18 05/28/18 21:20 21:20 21:31 CBC w Diff WBC RBC Hgb Hct MCV MCH MCHC RDW Plt Count MPV Neut % (Auto) Lymph % (Auto) [place] % (Auto) Eos % (Auto) Baso % (Auto) Neut # (Auto) Lymph # (Auto) [place] # (Auto) Eos # (Auto) Baso # (Auto) WBC Differential Diff Scan Differential Comment Platelet Estimate Platelet Morphology Tear Drop Cells Ovalocytes PT INR APTT Puncture Site Patient Temperature O2 Saturation ABG pH ABG pCO2 ABG pO2 ABG HCO3 ABG O2 Content ABG Base Excess ABG Methemoglobin Connor Test Hemoglobin Carboxyhemoglobin O2 Delivery Device Liter Flow Vent Setting Inspired O2 Critical Value Sodium Potassium Chloride Carbon Dioxide Anion Gap BUN Creatinine Estimated GFR POC Glucose 137 H Random Glucose Lactic Acid Calcium Phosphorus Magnesium Total Bilirubin AST ALT Alkaline Phosphatase Ammonia Total Creatine Kinase Troponin I Total Protein Albumin TSH Urine Color Yellow Urine Clarity Clear Urine pH 5.0 Ur Specific [place] Greater/equal 1.030 Urine Protein Trace Urine Glucose (UA) Negative Urine Ketones Negative Urine Occult Blood Negative Urine Nitrate Negative Urine Bilirubin Negative Urine Ictotest Negative Urine Urobilinogen 1.0 Ur Leukocyte Esterase Negative Urine RBC 0-3 Urine WBC 0-5 Ur Squamous Epith Cells 0-5 Amorphous Sediment Moderate H Micro UA Comment Culture not ind Ur Microscopic Review Microscopic reviewed Urine Culture Comments Culture not ind Nasal Screen MRSA (PCR) Random Vancomycin Urine Opiates Screen Pos H Ur Barbiturates Screen Neg Ur Amphetamines Screen Neg U Benzodiazepines Scrn Neg Urine Cocaine Screen Neg U Cannabinoids Screen Neg Serum Alcohol 05/28/18 05/28/18 05/28/18 23:00 23:30 23:30 CBC w Diff WBC RBC Hgb Hct MCV MCH MCHC RDW Plt Count MPV Neut % (Auto) Lymph % (Auto) [place] % (Auto) Eos % (Auto) Baso % (Auto) Neut # (Auto) Lymph # (Auto) [place] # (Auto) Eos # (Auto) Baso # (Auto) WBC Differential Diff Scan Differential Comment Platelet Estimate Platelet Morphology Tear Drop Cells Ovalocytes PT INR APTT Puncture Site Right brachial Patient Temperature 98.6 O2 Saturation 87 L* ABG pH 7.21 L* ABG pCO2 78 H* ABG pO2 81 ABG HCO3 30 H ABG O2 Content 16.0 ABG Base Excess 2.6 H ABG Methemoglobin 1.2 Connor Test Y Hemoglobin 13.1 Carboxyhemoglobin 7.1 H* O2 Delivery Device Bipap Liter Flow Vent Setting [id number] Inspired O2 50 Critical Value Yes Sodium Potassium Chloride Carbon Dioxide Anion Gap BUN Creatinine Estimated GFR POC Glucose Random Glucose Lactic Acid 1.1 Calcium Phosphorus Magnesium Total Bilirubin AST ALT Alkaline Phosphatase Ammonia Total Creatine Kinase Troponin I 0.68 H* Total Protein Albumin TSH Urine Color Urine Clarity Urine pH Ur Specific [place] Urine Protein Urine Glucose (UA) Urine Ketones Urine Occult Blood Urine Nitrate Urine Bilirubin Urine Ictotest Urine Urobilinogen Ur Leukocyte Esterase Urine RBC Urine WBC Ur Squamous Epith Cells Amorphous Sediment Micro UA Comment Ur Microscopic Review Urine Culture Comments Nasal Screen MRSA (PCR) Random Vancomycin Urine Opiates Screen Ur Barbiturates Screen Ur Amphetamines Screen U Benzodiazepines Scrn Urine Cocaine Screen U Cannabinoids Screen Serum Alcohol 05/29/18 05/29/18 05/29/18 00:17 03:25 03:45 CBC w Diff WBC RBC Hgb Hct MCV MCH MCHC RDW Plt Count MPV Neut % (Auto) Lymph % (Auto) [place] % (Auto) Eos % (Auto) Baso % (Auto) Neut # (Auto) Lymph # (Auto) [place] # (Auto) Eos # (Auto) Baso # (Auto) WBC Differential Diff Scan Differential Comment Platelet Estimate Platelet Morphology Tear Drop Cells Ovalocytes PT INR APTT Puncture Site Left radial Right radial Patient Temperature 98.6 98.6 O2 Saturation 81 L* 87 L* ABG pH 7.14 L* 7.37 L ABG pCO2 94 H* 47 H ABG pO2 70 65 ABG HCO3 30 H 27 H ABG O2 Content 15.1 16.1 ABG Base Excess 1.9 1.7 ABG Methemoglobin 1.2 1.4 Connor Test Y Present Hemoglobin 13.3 13.2 Carboxyhemoglobin 6.4 H* 3.8 O2 Delivery Device Bipap Ventilator Liter Flow Vent Setting [id number] Prvc/ac Inspired O2 50 100 Critical Value Yes Yes Sodium Potassium Chloride Carbon Dioxide Anion Gap BUN Creatinine Estimated GFR POC Glucose Random Glucose Lactic Acid Calcium Phosphorus Magnesium Total Bilirubin AST ALT Alkaline Phosphatase Ammonia Total Creatine Kinase Troponin I Total Protein Albumin TSH Urine Color Urine Clarity Urine pH Ur Specific [place] Urine Protein Urine Glucose (UA) Urine Ketones Urine Occult Blood Urine Nitrate Urine Bilirubin Urine Ictotest Urine Urobilinogen Ur Leukocyte Esterase Urine RBC Urine WBC Ur Squamous Epith Cells Amorphous Sediment Micro UA Comment Ur Microscopic Review Urine Culture Comments Nasal Screen MRSA (PCR) Not detected Random Vancomycin Urine Opiates Screen Ur Barbiturates Screen Ur Amphetamines Screen U Benzodiazepines Scrn Urine Cocaine Screen U Cannabinoids Screen Serum Alcohol 05/29/18 05/29/18 05/29/18 04:01 04:01 04:01 CBC w Diff WBC 12.6 H RBC 6.22 H Hgb 13.3 Hct 46.6 H MCV 75.0 L MCH 21.3 L MCHC 28.4 L RDW 22.1 H Plt Count 301 MPV 8.6 Neut % (Auto) 95.8 H Lymph % (Auto) 1.9 L [place] % (Auto) 2.1 Eos % (Auto) 0.0 Baso % (Auto) 0.2 Neut # (Auto) 12.1 H Lymph # (Auto) 0.2 L [place] # (Auto) 0.3 Eos # (Auto) 0.0 Baso # (Auto) 0.0 WBC Differential . Diff Scan Differential Comment Auto diff final Platelet Estimate Platelet Morphology Tear Drop Cells Ovalocytes PT 12.0 H INR 1.2 APTT 29.5 Puncture Site Patient Temperature O2 Saturation ABG pH ABG pCO2 ABG pO2 ABG HCO3 ABG O2 Content ABG Base Excess ABG Methemoglobin Connor Test Hemoglobin Carboxyhemoglobin O2 Delivery Device Liter Flow Vent Setting Inspired O2 Critical Value Sodium 138 Potassium 5.1 Chloride 103 Carbon Dioxide 28.1 Anion Gap 7 BUN 37 H Creatinine 2.03 H Estimated GFR 25 L POC Glucose Random Glucose 118 H Lactic Acid Calcium 7.9 L Phosphorus 4.2 Magnesium 1.9 Total Bilirubin 0.6 AST 19 ALT 19 Alkaline Phosphatase 95 Ammonia Total Creatine Kinase Troponin I 0.70 H* Total Protein 7.0 Albumin 2.8 L TSH Urine Color Urine Clarity Urine pH Ur Specific [place] Urine Protein Urine Glucose (UA) Urine Ketones Urine Occult Blood Urine Nitrate Urine Bilirubin Urine Ictotest Urine Urobilinogen Ur Leukocyte Esterase Urine RBC Urine WBC Ur Squamous Epith Cells Amorphous Sediment Micro UA Comment Ur Microscopic Review Urine Culture Comments Nasal Screen MRSA (PCR) Random Vancomycin Urine Opiates Screen Ur Barbiturates Screen Ur Amphetamines Screen U Benzodiazepines Scrn Urine Cocaine Screen U Cannabinoids Screen Serum Alcohol 05/29/18 05/29/18 05/29/18 06:28 10:00 14:14 CBC w Diff WBC RBC Hgb Hct MCV MCH MCHC RDW Plt Count MPV Neut % (Auto) Lymph % (Auto) [place] % (Auto) Eos % (Auto) Baso % (Auto) Neut # (Auto) Lymph # (Auto) [place] # (Auto) Eos # (Auto) Baso # (Auto) WBC Differential Diff Scan Differential Comment Platelet Estimate Platelet Morphology Tear Drop Cells Ovalocytes PT INR APTT Puncture Site Right radial Right radial Patient Temperature 98.6 98.6 O2 Saturation 88 L* 90 ABG pH 7.37 L 7.50 H ABG pCO2 46 H 32 L ABG pO2 67 64 ABG HCO3 26 25 ABG O2 Content 17.0 16.9 ABG Base Excess 1.1 1.6 ABG Methemoglobin 1.4 1.4 Connor Test Present Present Hemoglobin 13.7 13.3 Carboxyhemoglobin 2.4 2.0 O2 Delivery Device Ventilator Ventilator Liter Flow Vent Setting Prvc/ac 18/600/peep12 Inspired O2 100 80 Critical Value Yes No Sodium Potassium Chloride Carbon Dioxide Anion Gap BUN Creatinine Estimated GFR POC Glucose 126 H Random Glucose Lactic Acid Calcium Phosphorus Magnesium Total Bilirubin AST ALT Alkaline Phosphatase Ammonia Total Creatine Kinase Troponin I Total Protein Albumin TSH Urine Color Urine Clarity Urine pH Ur Specific [place] Urine Protein Urine Glucose (UA) Urine Ketones Urine Occult Blood Urine Nitrate Urine Bilirubin Urine Ictotest Urine Urobilinogen Ur Leukocyte Esterase Urine RBC Urine WBC Ur Squamous Epith Cells Amorphous Sediment Micro UA Comment Ur Microscopic Review Urine Culture Comments Nasal Screen MRSA (PCR) Random Vancomycin Urine Opiates Screen Ur Barbiturates Screen Ur Amphetamines Screen U Benzodiazepines Scrn Urine Cocaine Screen U Cannabinoids Screen Serum Alcohol 05/30/18 05/30/18 05/31/18 04:05 04:05 03:51 CBC w Diff WBC 11.2 H RBC 6.01 H Hgb 12.7 Hct 43.2 MCV 71.8 L MCH 21.1 L MCHC 29.4 L RDW 22.9 H Plt Count 264 MPV 8.8 Neut % (Auto) Lymph % (Auto) [place] % (Auto) Eos % (Auto) Baso % (Auto) Neut # (Auto) Lymph # (Auto) [place] # (Auto) Eos # (Auto) Baso # (Auto) WBC Differential Diff Scan Differential Comment Platelet Estimate Platelet Morphology Tear Drop Cells Ovalocytes PT INR APTT Puncture Site Patient Temperature O2 Saturation ABG pH ABG pCO2 ABG pO2 ABG HCO3 ABG O2 Content ABG Base Excess ABG Methemoglobin Connor Test Hemoglobin Carboxyhemoglobin O2 Delivery Device Liter Flow Vent Setting Inspired O2 Critical Value Sodium 139 139 Potassium 4.3 D 3.8 Chloride 104 103 Carbon Dioxide 25.1 27.2 Anion Gap 10 9 BUN 34 H 29 H Creatinine 1.06 H 0.67 Estimated GFR 54 L Greater than 89 POC Glucose Random Glucose 126 H 135 H Lactic Acid Calcium 9.0 D 9.1 Phosphorus 3.2 D Magnesium 1.8 Total Bilirubin 0.6 AST 21 ALT 15 Alkaline Phosphatase 77 Ammonia Total Creatine Kinase Troponin I Total Protein 6.8 Albumin 2.8 L TSH Urine Color Urine Clarity Urine pH Ur Specific [place] Urine Protein Urine Glucose (UA) Urine Ketones Urine Occult Blood Urine Nitrate Urine Bilirubin Urine Ictotest Urine Urobilinogen Ur Leukocyte Esterase Urine RBC Urine WBC Ur Squamous Epith Cells Amorphous Sediment Micro UA Comment Ur Microscopic Review Urine Culture Comments Nasal Screen MRSA (PCR) Random Vancomycin 4.0 Urine Opiates Screen Ur Barbiturates Screen Ur Amphetamines Screen U Benzodiazepines Scrn Urine Cocaine Screen U Cannabinoids Screen Serum Alcohol 05/31/18 05/31/18 05/31/18 03:51 05:22 14:16 CBC w Diff WBC 13.4 H RBC 5.99 H Hgb 12.6 Hct 43.5 MCV 72.6 L MCH 21.1 L MCHC 29.1 L RDW 22.4 H Plt Count 245 MPV 8.4 Neut % (Auto) Lymph % (Auto) [place] % (Auto) Eos % (Auto) Baso % (Auto) Neut # (Auto) Lymph # (Auto) [place] # (Auto) Eos # (Auto) Baso # (Auto) WBC Differential Diff Scan Differential Comment Platelet Estimate Platelet Morphology Tear Drop Cells Ovalocytes PT INR APTT Puncture Site Right radial Right radial Patient Temperature 98.6 98.6 O2 Saturation 92 89 L* ABG pH 7.42 7.44 H ABG pCO2 41 41 ABG pO2 78 67 ABG HCO3 26 27 H ABG O2 Content 16.9 16.3 ABG Base Excess 2.3 H 3.4 H ABG Methemoglobin 1.5 1.5 Connor Test Present + Hemoglobin 13.0 12.9 Carboxyhemoglobin 1.2 1.3 O2 Delivery Device Ventilator Ventilator Liter Flow Vent Setting Prvc/ac See comments Inspired O2 70 65 Critical Value No Yes Sodium Potassium Chloride Carbon Dioxide Anion Gap BUN Creatinine Estimated GFR POC Glucose Random Glucose Lactic Acid Calcium Phosphorus Magnesium Total Bilirubin AST ALT Alkaline Phosphatase Ammonia Total Creatine Kinase Troponin I Total Protein Albumin TSH Urine Color Urine Clarity Urine pH Ur Specific [place] Urine Protein Urine Glucose (UA) Urine Ketones Urine Occult Blood Urine Nitrate Urine Bilirubin Urine Ictotest Urine Urobilinogen Ur Leukocyte Esterase Urine RBC Urine WBC Ur Squamous Epith Cells Amorphous Sediment Micro UA Comment Ur Microscopic Review Urine Culture Comments Nasal Screen MRSA (PCR) Random Vancomycin Urine Opiates Screen Ur Barbiturates Screen Ur Amphetamines Screen U Benzodiazepines Scrn Urine Cocaine Screen U Cannabinoids Screen Serum Alcohol Result Diagrams: 06/03/18 04:00 06/03/18 04:00 Microbiology: Microbiology 05/30/18 16:40 Gram Stain - Final Sputum - Endotracheal Sputum Culture - Preliminary Heavy growth normal respiratory stephanie at 24 hours 05/29/18 17:50 Gram Stain - Final Sputum - Endotracheal Sputum Culture - Final Heavy growth normal respiratory stephanie 05/29/18 18:48 Aerobic Blood Culture - Preliminary Blood - Peripheral No growth in 2 days Anaerobic Blood Culture - Preliminary No growth in 2 days 05/29/18 18:43 Aerobic Blood Culture - Preliminary Blood - Peripheral No growth in 2 days Anaerobic Blood Culture - Preliminary No growth in 2 days 05/30/18 17:00 Streptococcus pneumoniae Antigen (M - Final Urine - Catheterized Urine Presumptive negative for streptococcus pneumoniae antigen, suggesting no current or recent infection. Infection due to Streptococcus pneumoniae cannot be ruled out since the antigen present in the sample may be below the detection limit of the test. 05/30/18 17:00 Legionella Antigen - Final Urine - Catheterized Urine Presumptive negative for Legionella pneumophila serogroup 1 antigen in urine, suggesting no recent or recurrent infection. Infection due to Legionella cannot be ruled out since other serogroups and species may cause disease, antigen may not be present in urine in early infection, and the level of antigen present in the urine may be below the detection limit of the test. 05/29/18 17:45 Influenza Types A,B Antigen - Final Nasal Wash Negative for FLU A and B antigen Infection due to influenza A or B cannot be ruled out since the antigen present in the sample may be below the detection limit of the test. Imaging: Cervical Spine CT 05/28/18 20:41 CONCLUSION: 1. Degenerative disc disease basically isolated C5-6 level as detailed above. 2. No fracture. Spinal canal and neural foramina appear to be adequate throughout without cord or nerve root compromise. Head CT 05/28/18 20:41 CONCLUSION: Negative exam. No acute intracranial process, trauma or fracture. . Ankle X-Ray 05/28/18 20:43 CONCLUSION: No evidence of recent bony injury. Diffuse soft tissue prominence. Foot X-Ray 05/28/18 20:43 CONCLUSION: 1. Soft tissue defect/laceration anterior to the ankle. 2. Osseous structures are intact. Chest X-Ray 05/31/18 05:00 CONCLUSION: 1. Interval development of left lower lobe consolidation. 2. Stable right upper lung opacity. Procedures: 05/28/18-orotracheal intubation Patient/Family Conference Family Conference Location: Other (Waiting room on [facility]) Issues Discussed: * Palliative care role, purpose, approach * Additional medical, psychosocial, and spiritual history * Patients general health, functional status, and cognitive changes in the months leading up to the current hospitalization * Patient/family understanding of the current medical problems * Patient/family understanding of prognosis * Patients goals of care as best understood from advance directives and/or conversations and/or values * Current medical treatment options and benefits/burdens of those options * Likely scenarios comparing ongoing aggressive care with a transition to comfort measures only * Questions answered to the best of my ability * Introduced hospice philosophy and benefits * Palliative care contact information provided Assessment and Plan - Disease Oriented Problem List (1) Community acquired pneumonia (2) Respiratory failure with hypoxia and hypercapnia (3) COPD exacerbation (4) Acute renal failure (ARF) (5) Diabetes mellitus - Symptom Scale (1) Shortness of breath 0-10 Scale: Unable to quantify Comment: History of COPD on supplemental home O2, pneumonia/bronchitis. Chest x -ray showing pneumonia. Currently intubated on mechanical ventilation. (2) Pain 0-10 Scale: Unable to quantify Comment: History of chronic back pain and chronic opioid dependence. (3) Physical deconditioning 0-10 Scale: Unable to quantify Comment: Progressive. History of multiple falls at home. Patient requiring oxygen all the times, and not able to tolerate activity due to shortness of breath and increased weakness. Pertinent Non-Medical Issues: Psychosocial: Patient was born and raised in [place], [place]. She moved to [place] in 1989. Patient was to your current since 2001. Patient his 3 adult children 2 daughters and 1 son who live up in [place]. Her mother is 96 years old and lives in [place]. Patient is a housewife. Spiritual: Patient is Restorationist and her has requested visits from Legal: Never completed advanced directives Ethical issues impacting care: None identified at this time . Important Contacts: -Trace Stroud [phone] home/[phone] Code Status: No Code DNR Plan: PLAN: Legal decision maker: Patient is currently intubated, sedated on mechanical ventilation. It is unknown whether patient will regain capacity to participate in decision-making. According to [place] statute, patient's Trace Stroud will serve as patient's healthcare proxy for medical decision making. Goals: Aggressive short of no code. Patient's is made patient a DNR. He stated that patient is always told him that he would never want to be placed on mechanical and a mechanical ventilator. He wants to give patient a few more days and see whether she improves. If patient continues to deteriorate , patient's would like to proceed with compassionate withdrawal from life support. Hospice has been introduced.Patient's also requested NO INVASIVE PROCEDURES FOR PATIENT. CODE STATUS: No code DNR SYMPTOMS: * Shortness of breath: Patient has a history of COPD and is on supplemental oxygen at home. Currently intubated on mechanical ventilation. Chest x-ray showing pneumonia. Patient is on antibiotics, duo nebs, steroids. * Pain: Patient has history of chronic back pain and has chronic opioid dependence. Patient takes oxycodone SR 30 mg p.o. every 12 hours and 30 mg p.o. every 4 hours PRN at home. Currently on a fentanyl infusion. Currently not showing any signs of pain. Continue to monitor for pain. * Physical deconditioning: Progressive. Patient has been reportedly falling at home. Patient requiring oxygen all the times, and not able to tolerate activity due to shortness of breath and increased weakness. Was found on the floor at home and she sustained another fall on the day she presented to the emergency room. Recommending physical therapy if goals are aggressive. Palliative care will continue to follow the patient during hospital course as condition evolves, to assist patient/decision-maker with understanding of their medical conditions, weighing benefits/burdens of treatment options, for clarification of goals of treatment. Additionally will assist with any symptoms of palliative concern Appreciation Thank you for the opportunity to participate in the care of Emma Stroud. Attestation Attestation: To help prompt me to consider important information that might be impacting today's encounter and assessment, information from prior notes written by myself or my colleagues may have been "brought forward" into today's note. My signature on this note, however, is an attestation that I personally performed the exam, history, and/or decision-making noted today, and, unless otherwise indicated, the interactions with patient, family, and staff as well as the review of records all occurred today. I also attest that the listed assessment and stated plan reflect my best clinical judgment today based on the combination of historical information, prior notes, and today's exam/ interactions. When time spent is documented, it refers only to time spent today by the signer, or if indicated, combined time spent today by collaborating physician/nurse practitioner.
[2018-06-01] MEDS: Heparin - SQ 10,000 UNITS/ML Vial SQ SCH ×4 (00:16→23:12)
[2018-06-01] MEDS: Epoprostenol (30,000/mL) Neb 75 ML in Sodium Chlor 0.9% Inj 25 ML NEB SCH ×4 (00:30→20:36)
[2018-06-01] MEDS: Propofol 1000 mg/100 ml Inj 1,000 MG/100 ML BOTTLE IV.CONT PRN ×7 (01:18→22:36)
[2018-06-01 04:27] LABS: Hematocrit 41.8 % (35.0-46.0); Hemoglobin 12.4 gm/dL (11.6-15.3); Mean Corpuscular Hemoglobin 21.3 pg (27.0-34.0); Mean Corpuscular Volume 71.8 fL (80.0-100.0); Mean Platelet Volume 8.3 fL (7.0-11.0); Platelet Count 209 th/mm3 (150-450); Red Blood Count 5.82 mil/mm3 (4.00-5.30); Red Cell Distribution Width 23.1 % (11.6-17.2); White Blood Count 18.1 th/mm3 (4.0-11.0)
[2018-06-01] MEDS: Chlorhexidine Gluconate 2% 1 Pack (2 Cloths) TOPICAL SCH (04:33)
[2018-06-01 04:35] LABS: Mean Corpuscular HGB Conc 29.6 % (32.0-36.0)
[2018-06-01 05:00] LABS: Anion Gap 8 meq/L (5-15); Blood Urea Nitrogen 22 mg/dL (7-18); Calcium 9.4 mg/dL (8.5-10.1); Carbon Dioxide 28.9 meq/L (21.0-32.0); Chloride 101 meq/L (98-107); Glomerular Filtration Rate Greater Than 89 mL/min (>89); Glucose,Random 128 mg/dL (74-106); Magnesium 1.7 mg/dL (1.5-2.5); Phosphorus 3.6 mg/dL (2.5-4.9); Potassium 3.8 meq/L (3.5-5.1); Sodium 138 meq/L (136-145)
[2018-06-01 05:24] LABS: ABG Base Excess 4.7 mmol/L (-2-2); ABG PCO2 42 mmHg (38-42); ABG PO2 71 mmHG (61-120)
[2018-06-01] MEDS: MethylPREDNISolone Sod Succinate Inj 40 MG/ML Vial IV.PUSH SCH ×3 (07:35→21:13)
[2018-06-01] MEDS: Famotidine PF Inj 20 MG/2 ML Vial IV.PUSH SCH (08:44)
[2018-06-01] MEDS: Gabapentin 100 MG Capsule PO SCH ×2 (08:44→21:13)
[2018-06-01] MEDS: Senna/Docusate Sodium 8.6/50 MG Tablet PO SCH ×2 (08:44→21:12)
[2018-06-01] MEDS: Lisinopril 10 MG Tablet PO SCH (08:45)
[2018-06-01] MEDS: Sertraline 100 MG Tablet PO SCH (08:45)
[2018-06-01] MEDS ORDERED: Midazolam Inj 5 MG/ML 1 ML Vial IV.PUSH ONE (08:54)
[2018-06-01] MEDS ORDERED: Norepinephrine Inj 16 MG in Sodium Chlor 0.9% Inj 234 ML IV.CONT PRN (08:55)
--- NOTE | 2018-06-01 09:09 | P.PNPL ---
Subjective Interval history: Patient remains intubated and sedated. On PRVC with PEEP:14 and FIO2 75%, sats 98%. Afebrile Physical Exam Vital signs: Vital Signs 05/31/18 11:00 05/31/18 11:08 05/31/18 12:29 Temperature 99.3 F Pulse Rate 84 85 Respiratory Rate 16 21 16 Blood Pressure 115/60 Pulse Oximetry 90 L 91 L 05/31/18 12:41 05/31/18 13:40 05/31/18 15:00 Temperature 99.5 F Pulse Rate 98 H Respiratory Rate 16 21 23 Blood Pressure 129/71 Pulse Oximetry 91 L 90 L 05/31/18 16:10 05/31/18 17:58 05/31/18 19:00 Temperature Pulse Rate 89 84 Respiratory Rate 21 20 Blood Pressure Pulse Oximetry 89 L 05/31/18 19:56 05/31/18 21:00 05/31/18 21:48 Temperature 98.7 F Pulse Rate 90 84 Respiratory Rate 20 20 20 Blood Pressure 110/57 L Pulse Oximetry 90 L 88 L 05/31/18 23:00 06/01/18 00:33 06/01/18 03:00 Temperature 98.6 F 98.6 F Pulse Rate 72 81 73 Respiratory Rate 20 20 20 Blood Pressure 113/64 96/52 L Pulse Oximetry 88 L 06/01/18 03:56 Temperature Pulse Rate 83 Respiratory Rate 20 Blood Pressure Pulse Oximetry 95 Intake & Output 05/31/18 06/01/18 06/01/18 18:59 06:59 18:59 Intake Total 1630 / 1630 560 / 560 274.0 / 274.0 Output Total 200 / 200 400 / 400 Balance 1430 / 1430 160 / 160 274.0 / 274.0 Weight 102 kg Intake: IV 1000 / 1000 374 / 374 274.0 / 274.0 Diprivan 1000 mg/100 ml Inj 1, 400 / 400 274 / 274 100.0 / 100.0 000 mg In 100 ml @ 5 MCG/KG/MIN 2.94 mls/hr IV.CONT TITRATE PRN Rx#:[id number] Levaquin 750 mg Premix Inj 150 150 / 150 ML @ 100 mls/hr IV.SIG Q24H BILL Rx#:[id number] fentaNYL 10 mcg/mL Premix Drip 250 / 250 174 / 174 2,500 mcg In 250 ml @ 50 MCG/HR 5 mls/hr IV.SIG TITRATE PRN Rx #:[id number] Flolan (30,000 ng/mL) Neb 75 ML 200 / 200 100 / 100 In NS Inj 25 ML @ 5 mls/hr NEB Q8H [facility] Rx#:[id number] Tube Feeding 550 / 550 186 / 186 Tube Irrigant 80 / 80 Output: Urine 200 / 200 Urine Amount (Catheter) 400 / 400 Female External 400 / 400 Other: # Incontinent Voids 3 # Urine Diapers 2 - Constitutional mild distress - Routine HEENT Exam Head: Present: normocephalic, atraumatic Eye: Present: EOMI, PERRL, normal accommodation, conjunctivae pink ENT: Present: mucous membranes moist - Routine Neck Exam Present: supple, full ROM, trachea midline - Routine Respiratory Exam Present: patient mechanically ventilated, CTA bilaterally - Routine Cardiovascular Exam Present: RRR, S1, S2 - Routine Abdominal Exam Present: soft, normoactive bowel sounds - Routine Extremities Exam Present: full ROM, pulses intact - Routine Skin Exam Present: intact, dry - Routine Neurological Exam Present: altered mental status - Urinary Catheter Management Straight Cath placed during this visit: yes Reason for continuing: Not indwelling catheter Insertion date: 05/28/18 Insertion time: 21:20 Indwelling Urethral Catheter Cath placed during this visit: yes, but has since been removed by the nurse Reason for continuing: Decision to DC catheter Insertion date: 05/29/18 Insertion time: 00:55 Removal date: 05/30/18 Removal time: 10:57 Female External Cath placed during this visit: yes Reason for continuing: Not indwelling catheter Insertion date: 05/30/18 Insertion time: 10:58 Assessment and Plan - Plan 1. VDRF 2. Severe ARDS 3. Diffuse interstitial lung disease. 4. Focal density right upper lobe. 5. Leukocytosis. 6. Acute kidney injury, improving. 7. Chronic obstructive pulmonary disease. 8. Diabetes mellitus. 9. Elevated troponin. Plan Continue with vent support and maintain sats >92%. For ETT exchange by Dr. Tran. Bronchodilators- DuoNeb, Pulmicort 0.5 nebs every 12 hours. Continue Solu-Medrol to 60 mg IV every 8 hours. Continue Flolan nebs 5ml/hr(30,000 ng) If no improvements in her oxygenation patient might benefit from prone position. On PRVC RR 20, TV 500, IT:1.2, PEEP:14, FIO2: 75%. Decrease FIO2 as malinda low TV ventilation per [employer]Net trial CT chest when stable Diurese with Bumex 1mg x1 Abx per ID- On Levaquin, Vanco x 1 dose 05/30 Nasal washings for influenza , strep pneumonia, Legionella urinary ag all negative Followup on sputum cx 05/29 normal resp stephanie GI/DVT prophylaxis. on heparin subcutaneously.
[2018-06-01] MEDS: Midazolam 50 MG/50 ML Inj 50 MG/50 ML BAG IV.CONT PRN ×2 (09:21→19:31)
[2018-06-01] MEDS: fentaNYL 10 mcg/mL Premix Drip 2,500 MCG/250 ML BAG IV.SIG PRN ×2 (09:52→19:30)
--- NOTE | 2018-06-01 11:21 | XR ---
EXAM DATE: 06/01/2018 11:11 AM EDT AGE/SEX: 58 years / Female INDICATIONS: Central line placement. CLINICAL DATA: This is the patient's subsequent encounter. Patient reports that signs and symptoms h ave been present for 4 - 6 days and indicates a pain score of Nonresponsive. MEDICAL/SURGICAL HISTORY: Non-responsive. Non-responsive. COMPARISON: C, CHEST 1V SINGLE AP, 05/31/2018. . FINDINGS: Stable ETT and NGT coursing beyond the GE junction. Interval placement of left IJ central line with t ip in the very proximal SVC. No pneumothorax. Redemonstration of bilateral lower lobe airspace consol idation and likely trace left pleural effusion. Stable 2 cm nodular right midlung opacity. Cardiomedi astinal contours are stable. Remainder of the exam is unchanged. CONCLUSION: 1. Stable ETT and NGT. Left IJ central line in the proximal SVC without pneumothorax. 2. Persistent bilateral lower lobe airspace disease and likely trace left pleural fluid. 3. Stable 2 cm nodular opacity in the right midlung zone. Electronically signed by: Cricket Keita MD 06/01/2018 11:20 AM EDT
--- NOTE | 2018-06-01 11:30 | P.PNID ---
Subjective Remarks: ID weekend coverage. Notes reviewed. Patient on the ventilator. New central line just inserted. Afebrile. White blood cell count is increased. Patient is a 58-year-old female, brought into the hospital for evaluation of generalized weakness, and some lethargy. Patient is taking medication for chronic pain syndrome. She apparently has been very weak recently and on the day of admission when the came home he found the patient on the floor. She was apparently awake and was complaining of generalized weakness. After that she sustained another fall and got a laceration on her left leg. There was mention of complaints of shortness of breath. There was no fever or chills lately no chest pain, no abdominal pain. She did have pain in the ankle and the foot. Evaluation in the ED showed that she was quite lethargic and she ended up getting intubated. Patient has been intubated since. Antibiotics: Levaquin Past Medical History: Amputation of index finger Diabetes History of COPD History of chronic back pain History of hysterectomy History of lupus Knee injury Shoulder injury Allergies/Adverse Reactions: Allergies penicillin G Allergy (Severe, Verified 05/30/18 11:43) UNKNOWN FROM CHILDHOOD Patient has tolerated cephalosporins in the past Sulfa (Sulfonamide Antibiotics) Allergy (Unknown, Verified 05/28/18 20:13) unknown from childhood Objective Vital Signs 05/31/18 12:29 05/31/18 12:41 05/31/18 13:40 Temperature Pulse Rate 85 Respiratory Rate 16 16 21 Blood Pressure Pulse Oximetry 91 L 05/31/18 15:00 05/31/18 16:10 05/31/18 17:58 Temperature 99.5 F Pulse Rate 98 H 89 Respiratory Rate 23 21 20 Blood Pressure 129/71 Pulse Oximetry 90 L 89 L 05/31/18 19:00 05/31/18 19:56 05/31/18 21:00 Temperature 98.7 F Pulse Rate 84 90 Respiratory Rate 20 20 Blood Pressure 110/57 L Pulse Oximetry 90 L 88 L 05/31/18 21:48 05/31/18 23:00 06/01/18 00:33 Temperature 98.6 F Pulse Rate 84 72 81 Respiratory Rate 20 20 20 Blood Pressure 113/64 Pulse Oximetry 88 L 06/01/18 03:00 06/01/18 03:56 06/01/18 07:00 Temperature 98.6 F 99.5 F Pulse Rate 73 83 83 Respiratory Rate 20 20 21 Blood Pressure 96/52 L 102/57 L Pulse Oximetry 95 06/01/18 09:04 06/01/18 09:06 Temperature Pulse Rate 111 H Respiratory Rate 26 H 23 Blood Pressure Pulse Oximetry 94 L Intake & Output 05/31/18 06/01/18 06/01/18 18:59 06:59 18:59 Intake Total 1630 / 1630 560 / 560 450.0 / 450.0 Output Total 200 / 200 400 / 400 Balance 1430 / 1430 160 / 160 450.0 / 450.0 Weight 102 kg Intake: IV 1000 / 1000 374 / 374 450.0 / 450.0 Diprivan 1000 mg/100 ml Inj 1, 400 / 400 274 / 274 100.0 / 100.0 000 mg In 100 ml @ 5 MCG/KG/MIN 2.94 mls/hr IV.CONT TITRATE PRN Rx#:[id number] Levaquin 750 mg Premix Inj 150 150 / 150 ML @ 100 mls/hr IV.SIG Q24H [facility] Rx#:[id number] fentaNYL 10 mcg/mL Premix Drip 250 / 250 250 / 250 2,500 mcg In 250 ml @ 50 MCG/HR 5 mls/hr IV.SIG TITRATE PRN Rx #:[id number] Flolan (30,000 ng/mL) Neb 75 ML 200 / 200 100 / 100 100 / 100 In NS Inj 25 ML @ 5 mls/hr NEB Q8H [facility] Rx#:[id number] Tube Feeding 550 / 550 186 / 186 Tube Irrigant 80 / 80 Output: Urine 200 / 200 Urine Amount (Catheter) 400 / 400 Female External 400 / 400 Other: # Incontinent Voids 3 # Urine Diapers 2 05/29/18 18:48 Blood - Peripheral Aerobic Blood Culture - Preliminary No growth in 3 days 05/29/18 18:48 Blood - Peripheral Anaerobic Blood Culture - Preliminary No growth in 3 days 05/29/18 18:43 Blood - Peripheral Aerobic Blood Culture - Preliminary No growth in 3 days 05/29/18 18:43 Blood - Peripheral Anaerobic Blood Culture - Preliminary No growth in 3 days 05/30/18 16:40 Sputum - Endotracheal Gram Stain - Final 05/30/18 16:40 Sputum - Endotracheal Sputum Culture - Preliminary Heavy growth normal respiratory stephanie at 24 hours 05/29/18 17:50 Sputum - Endotracheal Gram Stain - Final 05/29/18 17:50 Sputum - Endotracheal Sputum Culture - Final Heavy growth normal respiratory stephanie 05/30/18 17:00 Urine - Catheterized Urine Streptococcus pneumoniae Antigen ( M - Final Presumptive negative for streptococcus pneumoniae antigen, suggesting no current or recent infection. Infection due to Streptococcus pneumoniae cannot be ruled out since the antigen present in the sample may be below the detection limit of the test. 05/30/18 17:00 Urine - Catheterized Urine Legionella Antigen - Final Presumptive negative for Legionella pneumophila serogroup 1 antigen in urine, suggesting no recent or recurrent infection. Infection due to Legionella cannot be ruled out since other serogroups and species may cause disease, antigen may not be present in urine in early infection, and the level of antigen present in the urine may be below the detection limit of the test. 05/29/18 17:45 Nasal Wash Influenza Types A,B Antigen - Final Negative for FLU A and B antigen Infection due to influenza A or B cannot be ruled out since the antigen present in the sample may be below the detection limit of the test. Lab - Hematology Results 05/31/18 06/01/18 03:51 04:18 WBC 13.4 H 18.1 H RBC 5.99 H 5.82 H Hgb 12.6 12.4 Hct 43.5 41.8 MCV 72.6 L 71.8 L MCH 21.1 L 21.3 L MCHC 29.1 L 29.6 L RDW 22.4 H 23.1 H Plt Count 245 209 MPV 8.4 8.3 Lab - Chemistry Results 05/31/18 06/01/18 03:51 04:18 Sodium 139 138 Potassium 3.8 3.8 Chloride 103 101 Carbon Dioxide 27.2 28.9 Anion Gap 9 8 BUN 29 H 22 H Creatinine 0.67 0.62 Estimated GFR Greater than 89 Greater than 89 Random Glucose 135 H 128 H Calcium 9.1 9.4 Phosphorus 3.2 D 3.6 Magnesium 1.8 1.7 Imaging: ITS Impressions Cervical Spine CT 05/28/18 20:41 CONCLUSION: 1. Degenerative disc disease basically isolated C5-6 level as detailed above. 2. No fracture. Spinal canal and neural foramina appear to be adequate throughout without cord or nerve root compromise. Head CT 05/28/18 20:41 CONCLUSION: Negative exam. No acute intracranial process, trauma or fracture. . Ankle X-Ray 05/28/18 20:43 CONCLUSION: No evidence of recent bony injury. Diffuse soft tissue prominence. Foot X-Ray 05/28/18 20:43 CONCLUSION: 1. Soft tissue defect/laceration anterior to the ankle. 2. Osseous structures are intact. Chest X-Ray 06/01/18 00:00 CONCLUSION: 1. Stable ETT and NGT. Left IJ central line in the proximal SVC without pneumothorax. 2. Persistent bilateral lower lobe airspace disease and likely trace left pleural fluid. 3. Stable 2 cm nodular opacity in the right midlung zone. Physical Exam: GENERAL: Intubated on the ventilator. HEENT: Unable to fully assess since the patient is on the ventilator. NECK: Supple without adenopathy. No swelling. LUNGS: Decreased breath sounds throughout. HEART: Regular S1 and S2 without audible murmurs. ABDOMEN: Soft. Positive bowel sounds. EXTREMITIES: No clubbing or cyanosis. Trace edema to upper extremities. SKIN: No diffuse rash. NEUROLOGIC: Unable to assess because of patient being ventilated. PSYCH: Unable to assess Assessment and Plan - Plan Impression Sepsis on admission Fever CAP, ?mass in lung - C/S pending Respiratory failure Known COPD, smoker Renal insufficiency Leukocytosis, slightly higher, could partly be due to steroids Recommendation Follow C/S Will not give any further Vanco Continue Levaquin. Follow temperature and WBC. Monitor progress
--- NOTE | 2018-06-01 12:16 | P.PCN ---
Date of procedure: 06/01/18 Pre-op diagnosis: Need for rota prone access Post-op diagnosis: same Procedure: DATE: 06/01/2018 CENTRAL LINE PLACEMENT: Left internal jugular vein. Ultrasound-guided INDICATION: Central venous access CONSENT Informed consent for procedure was obtained from . DESCRIPTION OF THE PROCEDURE The patient was placed in supine position. The skin was cleansed with Chloraprep. Additional barrier precautions included large sterile drape, sterile gloves, sterile gown, face mask, and hat. 1 % lidocaine was used for local anesthesia. Under direct ultrasound guidance and on initial attempt, the vein was accessed with an introducer needle. The guide wire was advanced and the tract was dilated. Using Seldinger technique a 7 Israeli 20 cm antimicrobial coated triple-lumen catheter was advanced to a depth of 20 centimeters. The guide wire was removed. All ports had good return of dark venous blood and flushed easily with saline. The central line was secured with 2.0 silk. A sterile dressing with antibiotic disc was applied. StatLock was not applied due to roto-prone bed use. ESTIMATED BLOOD LOSS: Minimal COMPLICATIONS: No apparent complications. STAT chest x-ray reveals adequate positioning of central line
--- NOTE | 2018-06-01 13:52 | P.PNCC ---
Subjective Subjective Remarks/Hospital Course: 58-year-old female with history of lupus, chronic pain syndrome, hypertension, depression, COPD on supplemental oxygen and tobaccoism, presents for an evaluation of generalized weakness with altered mental status. According to the he came from work this evening and found the on the floor. She was awake with generalized weakness and then he assisted her up and into the bathroom where she had an additional fall sustaining a laceration to the anterior aspect of her left ankle. Patient reportedly takes pain medication for chronic pain syndrome. Patient reportedly has not taken additional medication beyond her baseline dosing. No alcohol consumption reportedly. No recent fever or chills. Patient has been having increasing frequency of falls. 2 's knowledge she has had no head injury. Patient in the emergency department at [facility] did not complain of head pain neck pain back pain abdominal pain pelvic pain complain of bilateral ankle and left foot pain. She was initially placed on BiPAP, however due to worsening respiratory acidosis she was intubated by ED attending for respiratory failure. 05/29: Remains sedated, orally intubated on mechanical ventilation. PEEP increased to +14 05/30: remains intubated and sedated. intermittently agitated. PEEP down to + 12. still febrile. remains hypoxic on 70% fio2, spo2 91%. 05/31: fio2 remains high at 65%. on inhaled epoprostanol. spo2 slightly better at 94%. Subjective 06/01: Afebrile. T-max 99.5. Received diuresed 1 mg bumetanide x1 now. Central line placed and arterial line placed. Will be placed in rota prone bed. Continue epoprostenol. No bowel movement since admission. Tube feeds at goal 40 cc an hour per nutrition's recommendations Objective Vital Signs / I&O: Vital Signs 05/31/18 15:00 05/31/18 16:10 05/31/18 17:58 Temperature 99.5 F Pulse Rate 98 H 89 Respiratory Rate 23 21 20 Blood Pressure 129/71 Pulse Oximetry 90 L 89 L 05/31/18 19:00 05/31/18 19:56 05/31/18 21:00 Temperature 98.7 F Pulse Rate 84 90 Respiratory Rate 20 20 Blood Pressure 110/57 L Pulse Oximetry 90 L 88 L 05/31/18 21:48 05/31/18 23:00 06/01/18 00:33 Temperature 98.6 F Pulse Rate 84 72 81 Respiratory Rate 20 20 20 Blood Pressure 113/64 Pulse Oximetry 88 L 06/01/18 03:00 06/01/18 03:56 06/01/18 07:00 Temperature 98.6 F 99.5 F Pulse Rate 73 83 83 Respiratory Rate 20 20 21 Blood Pressure 96/52 L 102/57 L Pulse Oximetry 95 06/01/18 09:04 06/01/18 09:06 06/01/18 11:45 Temperature 99 F Pulse Rate 111 H 70 Respiratory Rate 26 H 23 20 Blood Pressure 102/54 L Pulse Oximetry 94 L 06/01/18 12:48 Temperature Pulse Rate 70 Respiratory Rate 20 Blood Pressure Pulse Oximetry 94 L Intake & Output 05/31/18 06/01/18 06/01/18 18:59 06:59 18:59 Intake Total 1630 / 1630 560 / 560 489.1 / 489.1 Output Total 200 / 200 400 / 400 Balance 1430 / 1430 160 / 160 489.1 / 489.1 Weight 102 kg Intake: IV 1000 / 1000 374 / 374 489.1 / 489.1 Diprivan 1000 mg/100 ml Inj 1, 400 / 400 274 / 274 139.1 / 139.1 000 mg In 100 ml @ 5 MCG/KG/MIN 2.94 mls/hr IV.CONT TITRATE PRN Rx#:[id number] Levaquin 750 mg Premix Inj 150 150 / 150 ML @ 100 mls/hr IV.SIG Q24H [facility] Rx#:[id number] fentaNYL 10 mcg/mL Premix Drip 250 / 250 250 / 250 2,500 mcg In 250 ml @ 50 MCG/HR 5 mls/hr IV.SIG TITRATE PRN Rx #:[id number] Flolan (30,000 ng/mL) Neb 75 ML 200 / 200 100 / 100 100 / 100 In NS Inj 25 ML @ 5 mls/hr NEB Q8H [facility] Rx#:[id number] Tube Feeding 550 / 550 186 / 186 Tube Irrigant 80 / 80 Output: Urine 200 / 200 Urine Amount (Catheter) 400 / 400 Female External 400 / 400 Other: # Incontinent Voids 3 # Urine Diapers 2 Result Diagrams: 06/01/18 04:18 06/01/18 04:18 Other Results: Microbiology 05/30/18 16:40 Sputum - Endotracheal Gram Stain - Final 05/30/18 16:40 Sputum - Endotracheal Sputum Culture - Final Heavy growth normal respiratory stephanie 05/29/18 18:48 Blood - Peripheral Aerobic Blood Culture - Preliminary No growth in 3 days 05/29/18 18:48 Blood - Peripheral Anaerobic Blood Culture - Preliminary No growth in 3 days 05/29/18 18:43 Blood - Peripheral Aerobic Blood Culture - Preliminary No growth in 3 days 05/29/18 18:43 Blood - Peripheral Anaerobic Blood Culture - Preliminary No growth in 3 days 05/29/18 17:50 Sputum - Endotracheal Gram Stain - Final 05/29/18 17:50 Sputum - Endotracheal Sputum Culture - Final Heavy growth normal respiratory stephanie 05/30/18 17:00 Urine - Catheterized Urine Streptococcus pneumoniae Antigen ( M - Final Presumptive negative for streptococcus pneumoniae antigen, suggesting no current or recent infection. Infection due to Streptococcus pneumoniae cannot be ruled out since the antigen present in the sample may be below the detection limit of the test. 05/30/18 17:00 Urine - Catheterized Urine Legionella Antigen - Final Presumptive negative for Legionella pneumophila serogroup 1 antigen in urine, suggesting no recent or recurrent infection. Infection due to Legionella cannot be ruled out since other serogroups and species may cause disease, antigen may not be present in urine in early infection, and the level of antigen present in the urine may be below the detection limit of the test. 05/29/18 17:45 Nasal Wash Influenza Types A,B Antigen - Final Negative for FLU A and B antigen Infection due to influenza A or B cannot be ruled out since the antigen present in the sample may be below the detection limit of the test. Imaging: Cervical Spine CT 05/28/18 20:41 CONCLUSION: 1. Degenerative disc disease basically isolated C5-6 level as detailed above. 2. No fracture. Spinal canal and neural foramina appear to be adequate throughout without cord or nerve root compromise. Chest X-Ray 05/28/18 20:41 CONCLUSION: 3.5 cm possible mass in the right upper lung. Prominence in interstitial markings which may represent underlying pulmonary venous hypertension or underlying interstitial disease. Cardiomegaly. Head CT 05/28/18 20:41 CONCLUSION: Negative exam. No acute intracranial process, trauma or fracture. . Ankle X-Ray 05/28/18 20:43 CONCLUSION: No acute fracture Ankle X-Ray 05/28/18 20:43 CONCLUSION: No evidence of recent bony injury. Diffuse soft tissue prominence. Foot X-Ray 05/28/18 20:43 CONCLUSION: 1. Soft tissue defect/laceration anterior to the ankle. 2. Osseous structures are intact. Chest X-Ray 05/29/18 00:50 CONCLUSION: ET tube and NG tube in good position. Cardiomegaly. Diffuse interstitial disease. Focal density in the right upper lung. Chest X-Ray 05/31/18 05:00 CONCLUSION: 1. Interval development of left lower lobe consolidation. 2. Stable right upper lung opacity. Chest X-Ray 06/01/18 00:00 CONCLUSION: 1. Stable ETT and NGT. Left IJ central line in the proximal SVC without pneumothorax. 2. Persistent bilateral lower lobe airspace disease and likely trace left pleural fluid. 3. Stable 2 cm nodular opacity in the right midlung zone. Objective Remarks: Gen: middle-aged female, lying in bed, critically ill. HEENT: nc. at. perrl. mmm. Neck: No JVD. trachea midline. Left IJ CVL is clean dry and intact. Chest/Pulm: on mech vent, equal chest rise. Diminished breath sounds throughout. CVS: RRR. S1, S2 no S4. Without murmur GI/abdomen: soft, nontender, nondistended. no guarding. Extremities: warm bilaterally, no edema neuro: RASS -2. arouses and follows commands on the ventilator. Shakes hands and head violently [id number]. withdraws x 4. Assessment and Plan - Assessment and Plan Plan: Neuro/PSYCH: Chronic Pain Syndrome Chronic Opioid dependence Major depressive disorder NOS Currently on propofol/fentanyl and midazolam drips for sedation/analgesia while intubated - continue home gabapentin 200 mg daily 100 mg at night - goal RASS -2 - oxycodone 20mg po q4h currently being held. While on fentanyl drip - on home oxycodone SR 30mg po q12h and 30mg po q4h for breakthrough. currently on hold - frequent neuro checks -Continue sertraline 100 mg daily/home medication for depression Resp: Acute hypoxic and hypercarbic respiratory failure Acute COPD Exacerbation - severe, persistent Acute Community Acquired pneumonia- present on admission Tobaccoism No mass Will require rota prone bed. - PRVC ventilation with a PEEP of 14/FiO2 at 75% - vent bundle, hob elevated at 30 degrees -Albuterol/ipratropium aerosols every 4 hours with albuterol aerosols every 2 hours as needed dyspnea -Budesonide e 0.5/2 1 inhalation twice daily - will genetic counsellor smoking cessation after extubation. - continue inhaled epoprostenol CT thorax when clinically stable. Evaluate right upper lobe mass CV: Septic Shock- resolved Type II NSTEMI secondary to demand ischemia Elevated troponins Essential hypertension - no evidence for ACS. will not anticoagulate - trops stable. will stop trending - 2d echo 05/29 preserved LV function, mildly dilated RV. Currently on lisinopril 10 mg daily. Will hold while on vasopressors Norepinephrine drip to maintain mean arterial pressure greater than equal to 65 Renal/: Acute kidney injury- resolving - secondary to shock - continue strict i/o's - off mivf - daily bmp Owens catheter placed while in rota prone bed FEN/GI: Acute protein calorie malnutrition- moderate - tube feeds with Glucerna 1.5 goal 40 cc an hour - daily bmp, mg, phos - ICU electrolyte protocol - bowel regimen with docusate sodium/senna twice daily, polythene glycol centigrams twice daily, Actos 30 cc twice daily. 1 dose of methylnaltrexone 12 mg subcu x1 now and mineral oil 15 cc x1 now. Heme/ID: Community Acquired Pneumonia- present on admission Septic shock- resolving, present on admission - continue iv abx with levofloxacin - f/u cultures - ID consulted - daily cbc -Blood cultures, sputum, UA, urine Legionella pneumococcal antigens no growth to date Endo: Diabetes mellitus Holding metformin 500 mg twice daily/home medication - ssi with aspart insulin to maintain euglycemia every 6 hours low regimen MSK Elevated BMI Weight loss encouraged Prophylaxis: - SCDs -Subcutaneous heparin -Famotidine Lines: -Left IJ CVL day 1 placed 06/01 -Right radial arterial line placed 06/01 Critical care time: 33 minutes, exclusive of separately billable procedures.
[2018-06-01] MEDS ORDERED: Mineral Oil Liq 30 ML UDC PO ONE (14:00)
[2018-06-01] MEDS ORDERED: Potassium Chloride 25 MEQ Effervescent Tablet PO ONE (14:00)
[2018-06-01] MEDS ORDERED: Dextrose 50% in Water 50 ML Vial IV.PUSH PRN (14:01)
[2018-06-01] MEDS ORDERED: Magnesium Sulfate Inj 4 GM in Sodium Chlor 0.9% Inj 92 ML IV.SIG ONE (15:00)
[2018-06-01] MEDS ORDERED: Methylnaltrexone Inj 12 MG/0.6 ML Vial SQ ONE (15:00)
[2018-06-01] MEDS: Cisatracurium Inj 100 MG in Sodium Chlor 0.9% Inj 240 ML IV.CONT PRN ×2 (17:09→21:54)
[2018-06-01] MEDS: Insulin NovoLOG Aspart Correctional Sugar Inj SQ SCH (19:30)
[2018-06-01] MEDS: Polyethylene Glycol 3350 17 GM Packet NG/OG SCH (21:12)
[2018-06-01] MEDS: Artificial Tears Opth Oint 3.5 GM Tube EACH EYE SCH (21:12)
[2018-06-01] MEDS: Famotidine 20 MG Tablet PO SCH (21:13)
[2018-06-02] MEDS: Epoprostenol (30,000/mL) Neb 75 ML in Sodium Chlor 0.9% Inj 25 ML NEB SCH ×4 (00:07→21:01)
[2018-06-02] MEDS: Insulin NovoLOG Aspart Correctional Sugar Inj SQ SCH ×4 (00:08→19:23)
[2018-06-02] MEDS: Propofol 1000 mg/100 ml Inj 1,000 MG/100 ML BOTTLE IV.CONT PRN ×7 (02:03→22:41)
[2018-06-02] MEDS: Cisatracurium Inj 100 MG in Sodium Chlor 0.9% Inj 240 ML IV.CONT PRN ×4 (02:03→20:14)
[2018-06-02] MEDS: Chlorhexidine Gluconate 2% 1 Pack (2 Cloths) TOPICAL SCH (04:28)
[2018-06-02 04:38] LABS: Baso % (Auto) 0.1 % (0.0-2.0); Hematocrit 41.5 % (35.0-46.0); Hemoglobin 11.5 gm/dL (11.6-15.3); Lymph # (Auto) 0.2 th/mm3 (1.0-4.8); Mean Corpuscular Hemoglobin 20.6 pg (27.0-34.0); Mean Corpuscular Volume 74.2 fL (80.0-100.0); Mean Platelet Volume 8.6 fL (7.0-11.0); Mono % (Auto) 4.9 % (0.0-8.0); Neut # (Auto) 18.5 th/mm3 (1.8-7.7); Platelet Count 198 th/mm3 (150-450); Red Cell Distribution Width 22.7 % (11.6-17.2); White Blood Count 19.7 th/mm3 (4.0-11.0)
[2018-06-02 04:43] LABS: Mean Corpuscular HGB Conc 27.8 % (32.0-36.0)
[2018-06-02 05:09] LABS: Alanine Aminotransferase 20 U/L (10-53); Albumin 2.6 g/dL (3.4-5.0); Anion Gap 6 meq/L (5-15); Aspartate Aminotransferase 12 U/L (15-37); Blood Urea Nitrogen 18 mg/dL (7-18); Calcium 9.4 mg/dL (8.5-10.1); Carbon Dioxide 31.7 meq/L (21.0-32.0); Chloride 102 meq/L (98-107); Glomerular Filtration Rate Greater Than 89 mL/min (>89); Glucose,Random 111 mg/dL (74-106); Magnesium 1.8 mg/dL (1.5-2.5); Phosphorus 3.7 mg/dL (2.5-4.9); Sodium 140 meq/L (136-145)
[2018-06-02] MEDS: fentaNYL 10 mcg/mL Premix Drip 2,500 MCG/250 ML BAG IV.SIG PRN ×2 (05:09→14:52)
[2018-06-02] MEDS: Midazolam 50 MG/50 ML Inj 50 MG/50 ML BAG IV.CONT PRN ×4 (05:09→22:42)
[2018-06-02] MEDS: MethylPREDNISolone Sod Succinate Inj 40 MG/ML Vial IV.PUSH SCH ×3 (05:10→21:01)
--- NOTE | 2018-06-02 05:10 | XR ---
EXAM DATE: 06/02/2018 4:45 AM EDT AGE/SEX: 58 years / Female INDICATIONS: Shortness of breath, possible pulmonary disease. CLINICAL DATA: This is the patient's subsequent encounter. Patient reports that signs and symptoms h ave been present for 1 week and indicates a pain score of Nonresponsive. MEDICAL/SURGICAL HISTORY: Chronic obstructive pulmonary disease. None. COMPARISON: C, CHEST 1V SINGLE AP, 06/01/2018. . FINDINGS: ET tube tip well above the [place]. Gastric tube traverses the [id number]. Left internal jugular ca theter tip in the proximal superior vena cava. The heart is enlarged. Focal opacity in the right mid lung measures 2.5 cm (previously measured 1.9 cm); the change in size could be due to different magni fication factors. Patchy air space infiltrates in the central lungs bilaterally similar to prior. CONCLUSION: Persistent central infiltrates in both lungs. Focal opacity in the right upper lung appears larger, p robably due to different magnification factors between the present and prior exam. Electronically signed by: Rowdy Kim MD 06/02/2018 5:09 AM EDT
[2018-06-02 05:12] LABS: Alkaline Phosphatase 67 U/L (45-117); Total Protein 6.3 g/dL (6.4-8.2)
[2018-06-02 06:12] LABS: ABG Base Excess -6.2 mmol/L (-2-2); ABG PCO2 27 mmHg (38-42); ABG PO2 214 mmHG (61-120)
[2018-06-02] MEDS ORDERED: Methylnaltrexone Inj 12 MG/0.6 ML Vial SQ ONE (07:41)
[2018-06-02] MEDS ORDERED: Mineral Oil Enema 118 ML Bottle RECTAL ONE (07:42)
[2018-06-02] MEDS ORDERED: Mineral Oil 55% Emulsion 480 ML PO ONE ×2 (07:42→08:15)
--- NOTE | 2018-06-02 07:47 | P.PNCC ---
Subjective Subjective Remarks/Hospital Course: 58-year-old female with history of lupus, chronic pain syndrome, hypertension, depression, COPD on supplemental oxygen and tobaccoism, presents for an evaluation of generalized weakness with altered mental status. According to the he came from work this evening and found the on the floor. She was awake with generalized weakness and then he assisted her up and into the bathroom where she had an additional fall sustaining a laceration to the anterior aspect of her left ankle. Patient reportedly takes pain medication for chronic pain syndrome. Patient reportedly has not taken additional medication beyond her baseline dosing. No alcohol consumption reportedly. No recent fever or chills. Patient has been having increasing frequency of falls. 2 's knowledge she has had no head injury. Patient in the emergency department at [place] did not complain of head pain neck pain back pain abdominal pain pelvic pain complain of bilateral ankle and left foot pain. She was initially placed on BiPAP, however due to worsening respiratory acidosis she was intubated by ED attending for respiratory failure. 05/29: Remains sedated, orally intubated on mechanical ventilation. PEEP increased to +14 05/30: remains intubated and sedated. intermittently agitated. PEEP down to + 12. still febrile. remains hypoxic on 70% fio2, spo2 91%. 05/31: fio2 remains high at 65%. on inhaled epoprostanol. spo2 slightly better at 94%. 06/01: Afebrile. T-max 99.5. Received diuresed 1 mg bumetanide x1 now. Central line placed and arterial line placed. Will be placed in rota prone bed. Continue epoprostenol. No bowel movement since admission. Tube feeds at goal 40 cc an hour per nutrition's recommendations Subjective 06/02: Afebrile. Negative fluid balance past 24 hours. We will give 1 dose of acetazolamide today 500 mg.. Transition to rota prone bed. FiO2 down to 60%. Received start an aggressive bowel regimen today. Objective Vital Signs / I&O: Vital Signs 06/01/18 09:04 06/01/18 09:06 06/01/18 11:45 Temperature 99 F Pulse Rate 111 H 70 Respiratory Rate 26 H 23 20 Blood Pressure 102/54 L Pulse Oximetry 94 L 06/01/18 12:48 06/01/18 15:00 06/01/18 16:32 Temperature 98.9 F Pulse Rate 70 73 75 Respiratory Rate 20 20 20 Blood Pressure 108/57 L Pulse Oximetry 94 L 93 L 06/01/18 17:30 06/01/18 19:52 06/01/18 19:59 Temperature Pulse Rate 81 Respiratory Rate 20 20 Blood Pressure Pulse Oximetry 93 L 99 06/01/18 20:00 06/01/18 22:00 06/01/18 22:08 Temperature 97.9 F Pulse Rate 83 87 92 H Respiratory Rate 20 20 Blood Pressure Pulse Oximetry 100 06/01/18 23:00 06/01/18 23:32 06/01/18 23:57 Temperature Pulse Rate 85 86 Respiratory Rate 20 20 20 Blood Pressure 128/62 Pulse Oximetry 99 99 06/02/18 00:00 06/02/18 00:21 06/02/18 01:00 Temperature 97.6 F Pulse Rate 84 89 Respiratory Rate 20 20 Blood Pressure 117/61 124/59 L Pulse Oximetry 98 98 98 06/02/18 02:00 06/02/18 03:00 06/02/18 03:33 Temperature Pulse Rate 88 91 H Respiratory Rate 20 20 20 Blood Pressure 126/69 113/56 L Pulse Oximetry 98 97 908 H 06/02/18 03:35 06/02/18 04:00 06/02/18 06:00 Temperature 98.7 F Pulse Rate 85 90 85 Respiratory Rate 20 20 Blood Pressure 134/72 Pulse Oximetry 95 Intake & Output 06/01/18 06/02/18 06/02/18 18:59 06:59 18:59 Intake Total 628.2 / 628.2 2220 / 2220 Output Total 2345 / 2345 945 / 945 Balance -1716.8 / -1716.8 1275 / 1275 Weight 104 kg Intake: IV 628.2 / 628.2 1999 Nimbex Inj 100 MG In NS Inj 240 750 / 750 ML @ 1 MCG/KG/MIN 15.3 mls/hr IV.CONT TITRATE PRN Rx#: [id number] Versed Inj 50 mg In 50 ml @ 2 100 / 100 MG/HR 2 mls/hr IV.CONT TITRATE PRN Rx#:[id number] Diprivan 1000 mg/100 ml Inj 1, 278.2 / 278.2 300 / 300 000 mg In 100 ml @ 5 MCG/KG/MIN 2.94 mls/hr IV.CONT TITRATE PRN Rx#:[id number] Levaquin 750 mg Premix Inj 150 150 / 150 ML @ 100 mls/hr IV.SIG Q24H BILL Rx#:[id number] Magnesium Sulfate Inj 4 GM In 100 / 100 NS Inj 92 ML @ 25 mls/hr IV.SIG ONCE ONE Rx#:[id number] fentaNYL 10 mcg/mL Premix Drip 250 / 250 500 / 500 2,500 mcg In 250 ml @ 50 MCG/HR 5 mls/hr IV.SIG TITRATE PRN Rx #:[id number] Flolan (30,000 ng/mL) Neb 75 ML 100 / 100 100 / 100 In NS Inj 25 ML @ 5 mls/hr NEB Q8H BILL Rx#:[id number] Water Bolus Amount 220 / 220 Output: Urine Amount (Catheter) 2345 / 2345 925 / 925 Indwelling Urethral Catheter 2345 / 2345 925 / 925 Gastric Drainage 20 / 20 Oral Orogastric Tube 20 / 20 Other: # Bowel Movements 0 Result Diagrams: 06/02/18 04:00 06/02/18 04:00 Other Results: Microbiology 05/30/18 16:40 Sputum - Endotracheal Gram Stain - Final 05/30/18 16:40 Sputum - Endotracheal Sputum Culture - Final Heavy growth normal respiratory stephanie 05/29/18 18:48 Blood - Peripheral Aerobic Blood Culture - Preliminary No growth in 3 days 05/29/18 18:48 Blood - Peripheral Anaerobic Blood Culture - Preliminary No growth in 3 days 05/29/18 18:43 Blood - Peripheral Aerobic Blood Culture - Preliminary No growth in 3 days 05/29/18 18:43 Blood - Peripheral Anaerobic Blood Culture - Preliminary No growth in 3 days 05/29/18 17:50 Sputum - Endotracheal Gram Stain - Final 05/29/18 17:50 Sputum - Endotracheal Sputum Culture - Final Heavy growth normal respiratory stephanie 05/30/18 17:00 Urine - Catheterized Urine Streptococcus pneumoniae Antigen ( M - Final Presumptive negative for streptococcus pneumoniae antigen, suggesting no current or recent infection. Infection due to Streptococcus pneumoniae cannot be ruled out since the antigen present in the sample may be below the detection limit of the test. 05/30/18 17:00 Urine - Catheterized Urine Legionella Antigen - Final Presumptive negative for Legionella pneumophila serogroup 1 antigen in urine, suggesting no recent or recurrent infection. Infection due to Legionella cannot be ruled out since other serogroups and species may cause disease, antigen may not be present in urine in early infection, and the level of antigen present in the urine may be below the detection limit of the test. 05/29/18 17:45 Nasal Wash Influenza Types A,B Antigen - Final Negative for FLU A and B antigen Infection due to influenza A or B cannot be ruled out since the antigen present in the sample may be below the detection limit of the test. Imaging: Cervical Spine CT 05/28/18 20:41 CONCLUSION: 1. Degenerative disc disease basically isolated C5-6 level as detailed above. 2. No fracture. Spinal canal and neural foramina appear to be adequate throughout without cord or nerve root compromise. Chest X-Ray 05/28/18 20:41 CONCLUSION: 3.5 cm possible mass in the right upper lung. Prominence in interstitial markings which may represent underlying pulmonary venous hypertension or underlying interstitial disease. Cardiomegaly. Head CT 05/28/18 20:41 CONCLUSION: Negative exam. No acute intracranial process, trauma or fracture. . Ankle X-Ray 05/28/18 20:43 CONCLUSION: No acute fracture Ankle X-Ray 05/28/18 20:43 CONCLUSION: No evidence of recent bony injury. Diffuse soft tissue prominence. Foot X-Ray 05/28/18 20:43 CONCLUSION: 1. Soft tissue defect/laceration anterior to the ankle. 2. Osseous structures are intact. Chest X-Ray 05/29/18 00:50 CONCLUSION: ET tube and NG tube in good position. Cardiomegaly. Diffuse interstitial disease. Focal density in the right upper lung. Chest X-Ray 05/31/18 05:00 CONCLUSION: 1. Interval development of left lower lobe consolidation. 2. Stable right upper lung opacity. Chest X-Ray 06/01/18 00:00 CONCLUSION: 1. Stable ETT and NGT. Left IJ central line in the proximal SVC without pneumothorax. 2. Persistent bilateral lower lobe airspace disease and likely trace left pleural fluid. 3. Stable 2 cm nodular opacity in the right midlung zone. Chest X-Ray 06/02/18 06:00 CONCLUSION: Persistent central infiltrates in both lungs. Focal opacity in the right upper lung appears larger, probably due to different magnification factors between the present and prior exam. Objective Remarks: Gen: middle-aged female, lying in roto-prone bed, critically ill. HEENT: nc. at. perrl. mmm. Neck: No JVD. trachea midline. Left IJ CVL is clean dry and intact. Chest/Pulm: on mech vent, equal chest rise. Diminished breath sounds throughout. CVS: RRR. S1, S2 no S4. Without murmur GI/abdomen: soft, nontender, nondistended. no guarding. Extremities: warm bilaterally, no edema neuro: RASS -4. Currently on cisatracurium drip Assessment and Plan - Assessment and Plan Plan: Neuro/PSYCH: Chronic Pain Syndrome Chronic Opioid dependence Major depressive disorder NOS Currently on propofol at 50 mcg/kg/min/fentanyl 250 mcg/h and midazolam drips 5 mg an hour for sedation/analgesia while intubated Cisatracurium drip at 3 mcg/kg/min for a [id number] 2 out of 4 - continue home gabapentin 200 mg daily 100 mg at night - goal RASS -2 - oxycodone 20mg po q4h currently being held while on fentanyl drip - on home oxycodone SR 30mg po q12h and 30mg po q4h for breakthrough. currently on hold - frequent neuro checks -Continue sertraline 100 mg daily/home medication for depression Resp: Acute hypoxic and hypercarbic respiratory failure Acute COPD Exacerbation - severe, persistent Acute Community Acquired pneumonia- present on admission Tobaccoism Right upper lobe mass Currently in roto-prone bed - PRVC ventilation rate of 20, tidal volume around 500, I time of 1.2 with a PEEP of 14/FiO2 at 60 % - vent bundle, hob elevated at 30 degrees -Albuterol/ipratropium aerosols every 4 hours with albuterol aerosols every 2 hours as needed dyspnea -Budesonide e 0.5/2 1 inhalation twice daily - will student loan counselor smoking cessation after extubation. - continue inhaled epoprostenol CT thorax when clinically stable. Evaluate right upper lobe mass Follow-up on a.m. chest x-ray and ABG 06/03 CV: Septic Shock- resolved Type II NSTEMI secondary to demand ischemia Elevated troponins Essential hypertension - no evidence for ACS. will not anticoagulate - trops stable. will stop trending - 2d echo 05/29 preserved LV function, mildly dilated RV. Currently on lisinopril 10 mg daily. Will hold while on vasopressors Norepinephrine drip to maintain mean arterial pressure greater than equal to 65 Renal/: Acute kidney injury- resolving - secondary to shock - continue strict i/o's - off mivf - daily bmp Owens catheter placed while in rota prone bed FEN/GI: Acute protein calorie malnutrition- moderate Constipation - tube feeds with Glucerna 1.5 goal 40 cc an hour. We will decrease to 20 cc now trickle feeds well on rota prone bed - daily bmp, mg, phos - ICU electrolyte protocol - bowel regimen with docusate sodium/senna twice daily, polythene glycol 17 g twice daily, lactulose 30 cc 4 times daily. 1 dose of methylnaltrexone 12 mg subcu x1 now and mineral oil 30 cc x1 now. Mineral oil enema, soapsuds enema and fecal disimpaction ordered. Heme/ID: Community Acquired Pneumonia- present on admission Septic shock- resolving, present on admission Leukocytosis Microcytic anemia - continue iv abx with levofloxacin - f/u cultures - ID consulted - daily cbc. No indication for transfusion of blood products at this time -Blood cultures, sputum, UA, urine Legionella pneumococcal antigens no growth to date Endo: Diabetes mellitus Holding metformin 500 mg twice daily/home medication - ssi with aspart insulin to maintain euglycemia every 6 hours low regimen TSH was 0.612 uIU/mL MSK Elevated BMI Weight loss encouraged Prophylaxis: - SCDs -Subcutaneous heparin -Famotidine Lines: -Left IJ CVL day 2 placed 06/01 -leftt radial arterial line placed 06/01 Critical care time: 33 minutes, exclusive of separately billable procedures.
[2018-06-02] MEDS ORDERED: Mineral Oil 55% Emulsion 30 ML UDC PO ONE (08:15)
[2018-06-02] MEDS: Mag Sulf 1 gm/100 ml Premix 100 ML IV.SIG SCH ×2 (08:20→09:20)
[2018-06-02] MEDS: Gabapentin 100 MG Capsule PO SCH ×2 (08:21→20:15)
[2018-06-02] MEDS: Famotidine 20 MG Tablet PO SCH ×2 (08:21→20:15)
[2018-06-02] MEDS: Sertraline 100 MG Tablet PO SCH (08:21)
[2018-06-02] MEDS: Heparin - SQ 10,000 UNITS/ML Vial SQ SCH ×3 (08:22→23:57)
[2018-06-02] MEDS: Polyethylene Glycol 3350 17 GM Packet NG/OG SCH ×2 (08:22→20:15)
[2018-06-02] MEDS: Senna/Docusate Sodium 8.6/50 MG Tablet PO SCH ×2 (08:22→20:15)
[2018-06-02] MEDS: Artificial Tears Opth Oint 3.5 GM Tube EACH EYE SCH ×2 (08:24→20:16)
--- NOTE | 2018-06-02 08:59 | P.PNPL ---
Subjective Interval history: Patient was placed on rotoprone bed yesterday. Sedated with Diprivan, Fentanyl and Versed. Afebrile. On Neuromuscular blockade ( Nimbex). On PRVC with PEEP: 14 and FIO2 60%. CXR today showed b/p pulm infiltrates . Physical Exam Vital signs: Vital Signs 06/01/18 09:04 06/01/18 09:06 06/01/18 11:45 Temperature 99 F Pulse Rate 111 H 70 Respiratory Rate 26 H 23 20 Blood Pressure 102/54 L Pulse Oximetry 94 L 06/01/18 12:48 06/01/18 15:00 06/01/18 16:32 Temperature 98.9 F Pulse Rate 70 73 75 Respiratory Rate 20 20 20 Blood Pressure 108/57 L Pulse Oximetry 94 L 93 L 06/01/18 17:30 06/01/18 19:52 06/01/18 19:59 Temperature Pulse Rate 81 Respiratory Rate 20 20 Blood Pressure Pulse Oximetry 93 L 99 06/01/18 20:00 06/01/18 22:00 06/01/18 22:08 Temperature 97.9 F Pulse Rate 83 87 92 H Respiratory Rate 20 20 Blood Pressure Pulse Oximetry 100 06/01/18 23:00 06/01/18 23:32 06/01/18 23:57 Temperature Pulse Rate 85 86 Respiratory Rate 20 20 20 Blood Pressure 128/62 Pulse Oximetry 99 99 06/02/18 00:00 06/02/18 00:21 06/02/18 01:00 Temperature 97.6 F Pulse Rate 84 89 Respiratory Rate 20 20 Blood Pressure 117/61 124/59 L Pulse Oximetry 98 98 98 06/02/18 02:00 06/02/18 03:00 06/02/18 03:33 Temperature Pulse Rate 88 91 H Respiratory Rate 20 20 20 Blood Pressure 126/69 113/56 L Pulse Oximetry 98 97 908 H 06/02/18 03:35 06/02/18 04:00 06/02/18 06:00 Temperature 98.7 F Pulse Rate 85 90 85 Respiratory Rate 20 20 Blood Pressure 134/72 Pulse Oximetry 95 06/02/18 07:00 06/02/18 08:00 Temperature Pulse Rate 82 Respiratory Rate 18 20 Blood Pressure Pulse Oximetry 98 Intake & Output 10/27/18 10/28/18 10/28/18 18:59 06:59 18:59 Intake Total 628.2 / 628.2 2220 / 2220 100 / 100 Output Total 2345 / 2345 945 / 945 Balance -1716.8 / -1716.8 1275 / 1275 100 / 100 Weight 104 kg Intake: IV 628.2 / 628.2 1999 / 1999 100 / 100 Nimbex Inj 100 MG In NS Inj 240 750 / 750 ML @ 1 MCG/KG/MIN 15.3 mls/hr IV.CONT TITRATE PRN Rx#: [id number] Versed Inj 50 mg In 50 ml @ 2 100 / 100 MG/HR 2 mls/hr IV.CONT TITRATE PRN Rx#:[id number] Diprivan 1000 mg/100 ml Inj 1, 278.2 / 278.2 300 / 300 000 mg In 100 ml @ 5 MCG/KG/MIN 2.94 mls/hr IV.CONT TITRATE PRN Rx#:[id number] Levaquin 750 mg Premix Inj 150 150 / 150 ML @ 100 mls/hr IV.SIG Q24H BILL Rx#:[id number] Magnesium Sulfate Inj 4 GM In 100 / 100 NS Inj 92 ML @ 25 mls/hr IV.SIG ONCE ONE Rx#:[id number] fentaNYL 10 mcg/mL Premix Drip 250 / 250 500 / 500 2,500 mcg In 250 ml @ 50 MCG/HR 5 mls/hr IV.SIG TITRATE PRN Rx #:[id number] Flolan (30,000 ng/mL) Neb 75 ML 100 / 100 100 / 100 100 / 100 In NS Inj 25 ML @ 5 mls/hr NEB Q8H BILL Rx#:[id number] Water Bolus Amount 220 / 220 Output: Urine Amount (Catheter) 2345 / 2345 925 / 925 Indwelling Urethral Catheter 2345 / 2345 925 / 925 Gastric Drainage 20 / 20 Oral Orogastric Tube 20 / 20 Other: # Bowel Movements 0 - Constitutional obese - Routine HEENT Exam Head: Present: normocephalic, atraumatic Eye: Present: EOMI, PERRL, normal accommodation, conjunctivae pink ENT: Present: mucous membranes moist - Routine Neck Exam Present: supple, full ROM, trachea midline - Routine Respiratory Exam Present: patient mechanically ventilated, CTA bilaterally - Routine Cardiovascular Exam Present: RRR, S1, S2 - Routine Abdominal Exam Present: soft, normoactive bowel sounds - Routine Skin Exam Present: intact, dry - Routine Neurological Exam Present: altered mental status - Urinary Catheter Management Straight Cath placed during this visit: yes Reason for continuing: Not indwelling catheter Insertion date: 05/28/18 Insertion time: 21:20 Indwelling Urethral Catheter Cath placed during this visit: yes, but has since been removed by the nurse Reason for continuing: Other continuation reason Insertion date: 06/01/18 Insertion time: 13:55 Removal date: 05/30/18 Removal time: 10:57 Female External Cath placed during this visit: yes Reason for continuing: Not indwelling catheter Insertion date: 05/30/18 Insertion time: 10:58 Assessment and Plan - Plan 1. VDRF 2. Severe ARDS 3. B/l pulm infiltrates 4. Focal density right upper lobe. 5. Leukocytosis. 6. Acute kidney injury, improving. 7. Chronic obstructive pulmonary disease. 8. Diabetes mellitus. 9. Elevated troponin. Plan Continue with vent support and maintain sats >92%. For ETT exchange by Dr. Tran. Bronchodilators- DuoNeb, Pulmicort 0.5 nebs every 12 hours. Continue Solu-Medrol to 60 mg IV every 8 hours. Continue Flolan nebs 5ml/hr Continue with proning position On PRVC RR 20, TV 500, IT:1.2, PEEP:14, FIO2: 60%. Decrease FIO2 as malinda low TV ventilation per [employer] trial CT chest when stable to evaluate RUL density Abx per ID- On Levaquin, Vanco x 1 dose 05/30 Nasal washings for influenza , strep pneumonia, Legionella urinary ag all negative Followup on sputum cx 05/29 normal resp stephanie GI/DVT prophylaxis. on heparin subcutaneously.
--- NOTE | 2018-06-02 11:46 | P.PNID ---
Subjective Remarks: ID weekend coverage. Patient is a 58-year-old female, brought into the hospital for evaluation of generalized weakness, and some lethargy. Patient is taking medication for chronic pain syndrome. She apparently has been very weak recently and on the day of admission when the came home he found the patient on the floor. She was apparently awake and was complaining of generalized weakness. After that she sustained another fall and got a laceration on her left leg. There was mention of complaints of shortness of breath. There was no fever or chills lately no chest pain, no abdominal pain. She did have pain in the ankle and the foot. Evaluation in the ED showed that she was quite lethargic and she ended up getting intubated. Discussed with RN. Notes reviewed. On the vent. Patient transferred to [facility] [place] and placed on roto prone bed. FIO2 decreased to 50% while prone and had to be increased to 90% while supine. Afebrile. White blood cell count remain elevated. Antibiotics: Levaquin Past Medical History: Amputation of index finger Diabetes History of COPD History of chronic back pain History of hysterectomy History of lupus Knee injury Shoulder injury Allergies/Adverse Reactions: Allergies penicillin G Allergy (Severe, Verified 05/30/18 11:43) UNKNOWN FROM CHILDHOOD Patient has tolerated cephalosporins in the past Sulfa (Sulfonamide Antibiotics) Allergy (Unknown, Verified 05/28/18 20:13) unknown from childhood Objective Vital Signs 06/01/18 11:45 06/01/18 12:48 06/01/18 15:00 Temperature 99 F 98.9 F Pulse Rate 70 70 73 Respiratory Rate 20 20 20 Blood Pressure 102/54 L 108/57 L Pulse Oximetry 94 L 06/01/18 16:32 06/01/18 17:30 06/01/18 19:52 Temperature Pulse Rate 75 Respiratory Rate 20 20 Blood Pressure Pulse Oximetry 93 L 93 L 99 06/01/18 19:59 06/01/18 20:00 06/01/18 22:00 Temperature 97.9 F Pulse Rate 81 83 87 Respiratory Rate 20 20 Blood Pressure Pulse Oximetry 06/01/18 22:08 06/01/18 23:00 06/01/18 23:32 Temperature Pulse Rate 92 H 85 86 Respiratory Rate 20 20 20 Blood Pressure 128/62 Pulse Oximetry 100 99 06/01/18 23:57 06/02/18 00:00 06/02/18 00:21 Temperature 97.6 F Pulse Rate 84 Respiratory Rate 20 20 Blood Pressure 117/61 Pulse Oximetry 99 98 98 06/02/18 01:00 06/02/18 02:00 06/02/18 03:00 Temperature Pulse Rate 89 88 91 H Respiratory Rate 20 20 20 Blood Pressure 124/59 L 126/69 113/56 L Pulse Oximetry 98 98 97 06/02/18 03:33 06/02/18 03:35 06/02/18 04:00 Temperature 98.7 F Pulse Rate 85 90 Respiratory Rate 20 20 20 Blood Pressure 134/72 Pulse Oximetry 908 H 95 06/02/18 06:00 06/02/18 07:00 06/02/18 08:00 Temperature 98.5 F Pulse Rate 85 82 87 Respiratory Rate 18 20 Blood Pressure 159/68 H Pulse Oximetry 98 Intake & Output 06/01/18 06/02/18 06/02/18 18:59 06:59 18:59 Intake Total 628.2 / 628.2 2220 / 2220 300 / 300 Output Total 2345 / 2345 945 / 945 Balance -1716.8 / -1716.8 1275 / 1275 300 / 300 Weight 104 kg Intake: IV 628.2 / 628.2 1999 / 1999 300 / 300 Nimbex Inj 100 MG In NS Inj 240 750 / 750 ML @ 1 MCG/KG/MIN 15.3 mls/hr IV.CONT TITRATE PRN Rx#: [id number] Versed Inj 50 mg In 50 ml @ 2 100 / 100 MG/HR 2 mls/hr IV.CONT TITRATE PRN Rx#:[id number] Diprivan 1000 mg/100 ml Inj 1, 278.2 / 278.2 300 / 300 100 / 100 000 mg In 100 ml @ 5 MCG/KG/MIN 2.94 mls/hr IV.CONT TITRATE PRN Rx#:[id number] Levaquin 750 mg Premix Inj 150 150 / 150 ML @ 100 mls/hr IV.SIG Q24H BILL Rx#:[id number] Magnesium Sulfate 1 gm/D5W 100 100 / 100 ml Premix 100 ML @ 100 mls/hr IV.SIG Q1H BILL Rx#:[id number] Magnesium Sulfate Inj 4 GM In 100 / 100 NS Inj 92 ML @ 25 mls/hr IV.SIG ONCE ONE Rx#:[id number] fentaNYL 10 mcg/mL Premix Drip 250 / 250 500 / 500 2,500 mcg In 250 ml @ 50 MCG/HR 5 mls/hr IV.SIG TITRATE PRN Rx #:[id number] Flolan (30,000 ng/mL) Neb 75 ML 100 / 100 100 / 100 100 / 100 In NS Inj 25 ML @ 5 mls/hr NEB Q8H BILL Rx#:[id number] Water Bolus Amount 220 / 220 Output: Urine Amount (Catheter) 2345 / 2345 925 / 925 Indwelling Urethral Catheter 2345 / 2345 925 / 925 Gastric Drainage Oral Orogastric Tube Other: # Bowel Movements 0 05/29/18 18:48 Blood - Peripheral Aerobic Blood Culture - Preliminary No growth in 4 days 05/29/18 18:48 Blood - Peripheral Anaerobic Blood Culture - Preliminary No growth in 4 days 05/29/18 18:43 Blood - Peripheral Aerobic Blood Culture - Preliminary No growth in 4 days 05/29/18 18:43 Blood - Peripheral Anaerobic Blood Culture - Preliminary No growth in 4 days 05/30/18 16:40 Sputum - Endotracheal Gram Stain - Final 05/30/18 16:40 Sputum - Endotracheal Sputum Culture - Final Heavy growth normal respiratory stephanie 05/29/18 17:50 Sputum - Endotracheal Gram Stain - Final 05/29/18 17:50 Sputum - Endotracheal Sputum Culture - Final Heavy growth normal respiratory stephanie 05/30/18 17:00 Urine - Catheterized Urine Streptococcus pneumoniae Antigen ( M - Final Presumptive negative for streptococcus pneumoniae antigen, suggesting no current or recent infection. Infection due to Streptococcus pneumoniae cannot be ruled out since the antigen present in the sample may be below the detection limit of the test. 05/30/18 17:00 Urine - Catheterized Urine Legionella Antigen - Final Presumptive negative for Legionella pneumophila serogroup 1 antigen in urine, suggesting no recent or recurrent infection. Infection due to Legionella cannot be ruled out since other serogroups and species may cause disease, antigen may not be present in urine in early infection, and the level of antigen present in the urine may be below the detection limit of the test. 05/29/18 17:45 Nasal Wash Influenza Types A,B Antigen - Final Negative for FLU A and B antigen Infection due to influenza A or B cannot be ruled out since the antigen present in the sample may be below the detection limit of the test. Lab - Hematology Results 06/01/18 06/02/18 04:18 04:00 WBC 18.1 H 19.7 H RBC 5.82 H 5.60 H Hgb 12.4 11.5 L Hct 41.8 41.5 MCV 71.8 L 74.2 L MCH 21.3 L 20.6 L MCHC 29.6 L 27.8 L RDW 23.1 H 22.7 H Plt Count 209 198 MPV 8.3 8.6 Neut % (Auto) 94.0 H Lymph % (Auto) 1.0 L Rankin % (Auto) 4.9 Eos % (Auto) 0.0 Baso % (Auto) 0.1 Neut # (Auto) 18.5 H Lymph # (Auto) 0.2 L Rankin # (Auto) 1.0 H Eos # (Auto) 0.0 Baso # (Auto) 0.0 WBC Differential . Differential Comment Auto diff final Lab - Chemistry Results 06/01/18 06/01/18 06/02/18 04:18 23:10 04:00 Sodium 138 140 Potassium 3.8 4.0 Chloride 101 102 Carbon Dioxide 28.9 31.7 Anion Gap 8 6 BUN 22 H 18 Creatinine 0.62 0.46 L Estimated GFR Greater than 89 Greater than 89 POC Glucose 121 H Random Glucose 128 H 111 H Calcium 9.4 9.4 Phosphorus 3.6 3.7 Magnesium 1.7 1.8 Total Bilirubin 1.0 AST 12 L ALT 20 Alkaline Phosphatase 67 Total Protein 6.3 L Albumin 2.6 L 06/02/18 05:16 Sodium Potassium Chloride Carbon Dioxide Anion Gap BUN Creatinine Estimated GFR POC Glucose 113 H Random Glucose Calcium Phosphorus Magnesium Total Bilirubin AST ALT Alkaline Phosphatase Total Protein Albumin Imaging: ITS Impressions Cervical Spine CT 05/28/18 20:41 CONCLUSION: 1. Degenerative disc disease basically isolated C5-6 level as detailed above. 2. No fracture. Spinal canal and neural foramina appear to be adequate throughout without cord or nerve root compromise. Head CT 05/28/18 20:41 CONCLUSION: Negative exam. No acute intracranial process, trauma or fracture. . Ankle X-Ray 05/28/18 20:43 CONCLUSION: No evidence of recent bony injury. Diffuse soft tissue prominence. Foot X-Ray 05/28/18 20:43 CONCLUSION: 1. Soft tissue defect/laceration anterior to the ankle. 2. Osseous structures are intact. Chest X-Ray 06/02/18 06:00 CONCLUSION: Persistent central infiltrates in both lungs. Focal opacity in the right upper lung appears larger, probably due to different magnification factors between the present and prior exam. Physical Exam: GENERAL: Intubated on the ventilator. HEENT: Unable to fully assess since the patient is on the ventilator. NECK: No swelling. LUNGS: Coarse breath sounds bilateral. HEART: Regular S1 and S2 without audible murmurs. ABDOMEN: Soft. Positive bowel sounds. EXTREMITIES: No clubbing or cyanosis. Trace edema to upper extremities. SKIN: No diffuse rash. NEUROLOGIC: Unable to assess because of patient being ventilated. PSYCH: Unable to assess Assessment and Plan - Plan Impression Sepsis on admission. Cultures negative. Fever CAP, ?mass in lung - C/S pending Respiratory failure Known COPD, smoker Renal insufficiency Leukocytosis, slightly higher, could partly be due to steroids Recommendation Follow C/S Will not give any further Vanco Continue Levaquin. Follow temperature and WBC. Monitor progress
[2018-06-02] MEDS ORDERED: Sorbitol 70% Liq 30 ML UDC PO ONE (16:00)
[2018-06-02] MEDS: NUTRISOURCE FIBER G-TUBE SCH (20:16)
[2018-06-03] MEDS: Insulin NovoLOG Aspart Correctional Sugar Inj SQ SCH ×3 (00:11→13:34)
[2018-06-03] MEDS: Epoprostenol (30,000/mL) Neb 75 ML in Sodium Chlor 0.9% Inj 25 ML NEB SCH ×2 (00:11→09:01)
[2018-06-03] MEDS: fentaNYL 10 mcg/mL Premix Drip 2,500 MCG/250 ML BAG IV.SIG PRN ×3 (01:03→21:50)
[2018-06-03] MEDS: Propofol 1000 mg/100 ml Inj 1,000 MG/100 ML BOTTLE IV.CONT PRN ×4 (02:06→12:28)
[2018-06-03] MEDS: Cisatracurium Inj 100 MG in Sodium Chlor 0.9% Inj 240 ML IV.CONT PRN ×3 (03:04→13:48)
[2018-06-03] MEDS: Midazolam 50 MG/50 ML Inj 50 MG/50 ML BAG IV.CONT PRN ×4 (03:48→19:37)
[2018-06-03 04:16] LABS: Baso # (Auto) 0.1 th/mm3 (0.0-0.2); Baso % (Auto) 0.5 % (0.0-2.0); Eos % (Auto) 0.1 % (0.0-4.0); Hematocrit 40.9 % (35.0-46.0); Hemoglobin 11.8 gm/dL (11.6-15.3); Lymph # (Auto) 0.3 th/mm3 (1.0-4.8); Lymph % (Auto) 1.4 % (9.0-44.0); Mean Corpuscular Hemoglobin 21.1 pg (27.0-34.0); Mean Corpuscular Volume 72.9 fL (80.0-100.0); Mean Platelet Volume 8.4 fL (7.0-11.0); Mono # (Auto) 0.8 th/mm3 (0.0-0.9); Mono % (Auto) 3.8 % (0.0-8.0); Neut # (Auto) 19.5 th/mm3 (1.8-7.7); Neut % (Auto) 94.2 % (16.0-70.0); Platelet Count 216 th/mm3 (150-450); Red Cell Distribution Width 23.2 % (11.6-17.2); White Blood Count 20.6 th/mm3 (4.0-11.0)
[2018-06-03 04:24] LABS: Activated Partial Thrombo Time 31.5 sec (24.3-30.1); INR 1.1 Ratio; Prothrombin Time 11.3 sec (9.8-11.6)
[2018-06-03 04:25] LABS: Mean Corpuscular HGB Conc 28.9 % (32.0-36.0)
[2018-06-03 04:37] LABS: Alanine Aminotransferase 20 U/L (10-53); Albumin 2.5 g/dL (3.4-5.0); Anion Gap 8 meq/L (5-15); Aspartate Aminotransferase 10 U/L (15-37); Blood Urea Nitrogen 15 mg/dL (7-18); Calcium 9.2 mg/dL (8.5-10.1); Carbon Dioxide 29.3 meq/L (21.0-32.0); Chloride 103 meq/L (98-107); Glomerular Filtration Rate Greater Than 89 mL/min (>89); Glucose,Random 113 mg/dL (74-106); Magnesium 1.5 mg/dL (1.5-2.5); Phosphorus 3.4 mg/dL (2.5-4.9); Potassium 3.6 meq/L (3.5-5.1); Sodium 140 meq/L (136-145)
[2018-06-03 04:39] LABS: Alkaline Phosphatase 81 U/L (45-117); Total Protein 6.3 g/dL (6.4-8.2)
[2018-06-03] MEDS: MethylPREDNISolone Sod Succinate Inj 40 MG/ML Vial IV.PUSH SCH ×2 (05:17→13:21)
--- NOTE | 2018-06-03 08:48 | XR ---
EXAM DATE: 06/03/2018 8:30 AM EDT AGE/SEX: 58 years / Female INDICATIONS: Shortness of breath. CLINICAL DATA: This is the patient's subsequent encounter. Patient reports that signs and symptoms h ave been present for 1 week and indicates a pain score of 0/10. MEDICAL/SURGICAL HISTORY: Chronic obstructive pulmonary disease. None. COMPARISON: [facility] [place]ST 1V SINGLE AP, 06/02/2018. . FINDINGS: 2.5 cm nodule right upper lobe. Left lung clear. ET tube central venous catheter nasogastric tube in good position. Mild cardiomegaly with minimal int erstitial changes. CONCLUSION: Interval improvement with better aeration. Persistent right upper lobe lung nodule. Electronically signed by: Doug Rosales MD 06/03/2018 8:46 AM EDT
--- NOTE | 2018-06-03 08:55 | XR ---
EXAM DATE: 06/03/2018 8:28 AM EDT AGE/SEX: 58 years / Female INDICATIONS: Distention. CLINICAL DATA: This is the patient's subsequent encounter. Patient reports that signs and symptoms h ave been present for 1 week and indicates a pain score of Nonresponsive. MEDICAL/SURGICAL HISTORY: Chronic obstructive pulmonary disease. None. COMPARISON: No prior exams available for comparison. FINDINGS: Prominent loop of colon is seen in the right lower quadrant. Minimal gaseous distention of transvers e colon is evident. Degenerative changes are present in the lower lumbar spine Callus occasions are seen in the pelvis. CONCLUSION: Abnormal bowel gas pattern with dilated loop of colon in the right lower quadrant. I'm not sure wheth er this is the sigmoid or cecum. Follow-up and correlation suggested. Electronically signed by: Doug Rosales MD 06/03/2018 8:54 AM EDT
[2018-06-03] MEDS: Senna/Docusate Sodium 8.6/50 MG Tablet PO SCH (09:00)
[2018-06-03] MEDS: Sertraline 100 MG Tablet PO SCH (09:00)
[2018-06-03] MEDS: Heparin - SQ 10,000 UNITS/ML Vial SQ SCH (09:00)
[2018-06-03] MEDS ORDERED: Bacitracin/Polymyxin Oint 15 GM Tube TOPICAL SCH (09:00)
[2018-06-03] MEDS: Gabapentin 100 MG Capsule PO SCH (09:00)
[2018-06-03] MEDS: Polyethylene Glycol 3350 17 GM Packet NG/OG SCH (09:00)
[2018-06-03] MEDS: Famotidine 20 MG Tablet PO SCH (09:00)
[2018-06-03] MEDS: NUTRISOURCE FIBER G-TUBE SCH (09:02)
[2018-06-03] MEDS: Artificial Tears Opth Oint 3.5 GM Tube EACH EYE SCH (09:04)
--- NOTE | 2018-06-03 12:05 | P.PNWCN ---
Wound Care Nurse Consult Description: Wound Management of left foot per Dr Tran Communicated with: Fanny, RN who states that she just changed the bandage and applied the ordered topical ointment. Asked that wound care come tomorrow during dressing change to assess for further needs as dressing is ordered to be changed daily. Recommendation: Please vocera wound care for assessment before dressing change on Sunday.
--- NOTE | 2018-06-03 12:12 | P.PN ---
Subjective Interval history: Sedated and on vent support and Rotoprone bed for severe ARDS. On antibiotics for sepsis. On feeds and pressors. Physical Exam Vital signs: Vital Signs 06/02/18 12:31 06/02/18 13:00 06/02/18 14:00 Temperature 98.6 F 98.6 F Pulse Rate 75 75 Respiratory Rate 20 20 20 Blood Pressure 98/53 L 86/47 L Pulse Oximetry 95 91 L 94 L 06/02/18 15:00 06/02/18 16:00 06/02/18 17:00 Temperature 99.0 F 99.0 F Pulse Rate 79 78 78 Respiratory Rate 20 20 20 Blood Pressure 107/58 L 109/57 L 111/56 L Pulse Oximetry 91 L 95 96 06/02/18 18:00 06/02/18 19:00 06/02/18 19:34 Temperature 99.0 F 99.0 F Pulse Rate 75 75 Respiratory Rate 20 20 20 Blood Pressure 113/62 87/49 L Pulse Oximetry 96 92 L 96 06/02/18 19:35 06/02/18 20:00 06/02/18 21:00 Temperature 99.0 F 99.0 F Pulse Rate 75 76 79 Respiratory Rate 20 20 21 Blood Pressure 89/52 L 118/60 Pulse Oximetry 97 97 06/02/18 22:00 06/02/18 23:00 06/02/18 23:30 Temperature 99.3 F 99.5 F Pulse Rate 79 80 Respiratory Rate 20 20 20 Blood Pressure 99/50 L 106/54 L Pulse Oximetry 97 97 97 06/02/18 23:32 06/03/18 00:00 06/03/18 01:00 Temperature 99.7 F H 99.7 F H Pulse Rate 80 81 83 Respiratory Rate 20 20 20 Blood Pressure 124/65 104/59 L Pulse Oximetry 93 L 95 06/03/18 02:00 06/03/18 02:44 06/03/18 03:00 Temperature 99.5 F 99.5 F Pulse Rate 82 81 80 Respiratory Rate 20 20 21 Blood Pressure 96/55 L 124/65 Pulse Oximetry 95 96 06/03/18 03:32 06/03/18 04:00 06/03/18 06:00 Temperature 99.1 F Pulse Rate 82 79 Respiratory Rate 20 20 Blood Pressure 98/53 L Pulse Oximetry 97 97 06/03/18 07:43 06/03/18 08:00 06/03/18 09:59 Temperature 99.3 F Pulse Rate 79 78 Respiratory Rate 20 20 20 Blood Pressure 98/53 L Pulse Oximetry 87 L 96 06/03/18 10:00 06/03/18 11:25 Temperature Pulse Rate 78 77 Respiratory Rate 20 Blood Pressure Pulse Oximetry Intake & Output 06/02/18 06/03/18 06/03/18 18:59 06:59 18:59 Intake Total 1667.1 / 1667.1 1360 / 1360 400 / 400 Output Total 2400 / 2400 1300 / 1300 Balance -732.9 / -732.9 60 / 60 400 / 400 Weight 103.5 kg Intake: IV 1289.1 / 1289.1 1350 / 1350 400 / 400 Nimbex Inj 100 MG In NS Inj 240 250 / 250 500 / 500 250 / 250 ML @ 1 MCG/KG/MIN 15.3 mls/hr IV.CONT TITRATE PRN Rx#: [id number] Versed Inj 50 mg In 50 ml @ 2 100 / 100 100 / 100 50 / 50 MG/HR 2 mls/hr IV.CONT TITRATE PRN Rx#:[id number] Diprivan 1000 mg/100 ml Inj 1, 239.1 / 239.1 400 / 400 100 / 100 000 mg In 100 ml @ 5 MCG/KG/MIN 2.94 mls/hr IV.CONT TITRATE PRN Rx#:[id number] Levaquin 750 mg Premix Inj 150 150 / 150 ML @ 100 mls/hr IV.SIG Q24H BILL Rx#:[id number] Magnesium Sulfate 1 gm/D5W 100 200 / 200 ml Premix 100 ML @ 100 mls/hr IV.SIG Q1H BILL Rx#:[id number] fentaNYL 10 mcg/mL Premix Drip 250 / 250 250 / 250 2,500 mcg In 250 ml @ 50 MCG/HR 5 mls/hr IV.SIG TITRATE PRN Rx #:[id number] Flolan (30,000 ng/mL) Neb 75 ML 100 / 100 100 / 100 In NS Inj 25 ML @ 5 mls/hr NEB Q8H BILL Rx#:[id number] Tube Feeding 10 / 10 Water Bolus Amount 360 / 360 Output: Urine Amount (Catheter) 2400 / 2400 1300 / 1300 Indwelling Urethral Catheter 2400 / 2400 1300 / 1300 Other: # Bowel Movements 0 0 Narrative: Physical Examination GENERAL: Patient is a well-nourished, well-developed female, sedated on the vent, in respiratory distress. SKIN: Warm and dry. No generalized rash, no ecchymoses. HEAD: Atraumatic. Normocephalic. No temporal wasting, or tenderness. EYES: [place] conjunctiva. No petechia or hemorrhage. Pupils equal, round and reactive to light. No scleral icterus. No injection or drainage. EARS, NOSE AND THROAT: Nose without bleeding or purulent nasal discharge. She is orally intubated NECK: Trachea midline. CARDIOVASCULAR: Regular rate and rhythm. No murmurs, rubs or gallops heard RESPIRATORY: Coarse breath sounds bilaterally. Decreased at the bases. Few crackles. ABDOMEN: Soft, non-tender, nondistended. Bowel sounds present and normoactive. No guarding. No rebound. No organomegaly. EXTREMITIES: No clubbing, cyanosis. Has mild pedal edema. Sutured laceration L distal ankle. NEUROLOGICAL: Sedated. PSYCHIATRIC: Unable to assess. LINE: No evidence of infection - Urinary Catheter Management Straight Cath placed during this visit: yes Reason for continuing: Not indwelling catheter Insertion date: 05/28/18 Insertion time: 21:20 Indwelling Urethral Catheter Cath placed during this visit: yes, but has since been removed by the nurse Reason for continuing: Other continuation reason Insertion date: 06/01/18 Insertion time: 13:55 Removal date: 05/30/18 Removal time: 10:57 Female External Cath placed during this visit: yes Reason for continuing: Not indwelling catheter Insertion date: 05/30/18 Insertion time: 10:58 Results - Labs CBC & Chem 7: 06/03/18 04:00 06/03/18 04:00 Laboratory Results - last 24 hr 06/02/18 06/02/18 06/02/18 05:50 11:48 17:28 WBC RBC Hgb Hct MCV MCH MCHC RDW Plt Count MPV Neut % (Auto) Lymph % (Auto) Graham % (Auto) Eos % (Auto) Baso % (Auto) Neut # (Auto) Lymph # (Auto) Graham # (Auto) Eos # (Auto) Baso # (Auto) WBC Differential Differential Comment PT INR APTT Puncture Site Art line Connor Test Present Sodium Potassium Chloride Carbon Dioxide Anion Gap BUN Creatinine Estimated GFR POC Glucose 122 H 130 H Random Glucose Calcium Phosphorus Magnesium Total Bilirubin AST ALT Alkaline Phosphatase Ammonia Total Protein Albumin 06/03/18 06/03/18 06/03/18 00:01 04:00 04:00 WBC 20.6 H RBC 5.60 H Hgb 11.8 Hct 40.9 MCV 72.9 L MCH 21.1 L MCHC 28.9 L RDW 23.2 H Plt Count 216 MPV 8.4 Neut % (Auto) 94.2 H Lymph % (Auto) 1.4 L Graham % (Auto) 3.8 Eos % (Auto) 0.1 Baso % (Auto) 0.5 Neut # (Auto) 19.5 H Lymph # (Auto) 0.3 L Graham # (Auto) 0.8 Eos # (Auto) 0.0 Baso # (Auto) 0.1 WBC Differential . Differential Comment Auto diff final PT 11.3 INR 1.1 APTT 31.5 H Puncture Site Connor Test Sodium Potassium Chloride Carbon Dioxide Anion Gap BUN Creatinine Estimated GFR POC Glucose 116 H Random Glucose Calcium Phosphorus Magnesium Total Bilirubin AST ALT Alkaline Phosphatase Ammonia Total Protein Albumin 06/03/18 06/03/18 06/03/18 04:00 04:00 05:26 WBC RBC Hgb Hct MCV MCH MCHC RDW Plt Count MPV Neut % (Auto) Lymph % (Auto) Graham % (Auto) Eos % (Auto) Baso % (Auto) Neut # (Auto) Lymph # (Auto) Graham # (Auto) Eos # (Auto) Baso # (Auto) WBC Differential Differential Comment PT INR APTT Puncture Site Connor Test Sodium 140 Potassium 3.6 Chloride 103 Carbon Dioxide 29.3 Anion Gap 8 BUN 15 Creatinine 0.40 L Estimated GFR Greater than 89 POC Glucose 94 Random Glucose 113 H Calcium 9.2 Phosphorus 3.4 Magnesium 1.5 Total Bilirubin 1.2 H AST 10 L ALT 20 Alkaline Phosphatase 81 Ammonia 38 H Total Protein 6.3 L Albumin 2.5 L Microbiology 05/29/18 18:48 Blood - Peripheral Aerobic Blood Culture - Final No growth in 5 days 05/29/18 18:48 Blood - Peripheral Anaerobic Blood Culture - Final No growth in 5 days 05/29/18 18:43 Blood - Peripheral Aerobic Blood Culture - Final No growth in 5 days 05/29/18 18:43 Blood - Peripheral Anaerobic Blood Culture - Final No growth in 5 days - Imaging Impressions Abdomen X-Ray 06/03/18 06:00 CONCLUSION: Abnormal bowel gas pattern with dilated loop of colon in the right lower quadrant. I'm not sure whether this is the sigmoid or cecum. Follow-up and correlation suggested. Chest X-Ray 06/03/18 06:00 CONCLUSION: Interval improvement with better aeration. Persistent right upper lobe lung nodule. Assessment and Plan - Assessment (1) ARDS (adult respiratory distress syndrome) Code(s): J80 - Acute respiratory distress syndrome Status: Acute (2) Respiratory failure Code(s): J96.90 - Respiratory failure, unspecified, unspecified whether with hypoxia or hypercapnia Status: Acute (3) Respiratory failure with hypoxia and hypercapnia Code(s): J96.91 - Respiratory failure, unspecified with hypoxia; J96.92 - Respiratory failure, unspecified with hypercapnia Status: Acute (4) COPD exacerbation Code(s): J44.1 - Chronic obstructive pulmonary disease with (acute) exacerbation Status: Acute (5) Altered mental status Code(s): R41.82 - Altered mental status, unspecified Status: Acute (6) Acute renal failure (ARF) Code(s): N17.9 - Acute kidney failure, unspecified Status: Acute (7) Laceration of ankle Code(s): S91.019A - Laceration without foreign body, unspecified ankle, initial encounter Status: Acute (8) Community acquired pneumonia Code(s): J18.9 - Pneumonia, unspecified organism Status: Acute (9) Diabetes mellitus Code(s): E11.9 - Type 2 diabetes mellitus without complications Status: Acute - Plan 1. Continue vent support and wean FIO2 and PEEP. 2. Keep sedated with Propofol. 3. Duoneb nebs q6h. 4. Continue antibiotics per ID 5. Prone bed and suction ET tube PRN 6. CBC, BMP CXR ,in am 7. Solumedrol 60 mg IV Q8H (3) Respiratory failure with hypoxia and hypercapnia Qualifiers: Chronicity: acute Qualified Code(s): J96.01 - Acute respiratory failure with hypoxia; J96.02 - Acute respiratory failure with hypercapnia (5) Altered mental status Qualifiers: Altered mental status type: stupor Qualified Code(s): R40.1 - Stupor (6) Acute renal failure (ARF) Qualifiers: Acute renal failure type: unspecified Qualified Code(s): N17.9 - Acute kidney failure, unspecified (7) Laceration of ankle Qualifiers: Encounter type: initial encounter Laterality: left Qualified Code(s): S91.012A - Laceration without foreign body, left ankle, initial encounter
[2018-06-03] MEDS ORDERED: Atropine Inj 1 MG/10 ML Syringe IV.PUSH ONE (12:43)
[2018-06-03] MEDS ORDERED: NEOSTIGMINE IV.PUSH ONE (12:44)
[2018-06-03] MEDS ORDERED: Magnesium Sulfate Inj 4 GM in Dextrose 5% in Water Inj 100 ML IV.SIG ONE ×2 (12:45)
[2018-06-03] MEDS ORDERED: Potassium Chlor 40 mEq Premix 40 MEQ/100 ML PIGGYBACK IV.SIG ONE (12:46)
--- NOTE | 2018-06-03 12:48 | P.PNCC ---
Subjective Subjective Remarks/Hospital Course: 58-year-old female with history of lupus, chronic pain syndrome, hypertension, depression, COPD on supplemental oxygen and tobaccoism, presents for an evaluation of generalized weakness with altered mental status. According to the he came from work this evening and found the on the floor. She was awake with generalized weakness and then he assisted her up and into the bathroom where she had an additional fall sustaining a laceration to the anterior aspect of her left ankle. Patient reportedly takes pain medication for chronic pain syndrome. Patient reportedly has not taken additional medication beyond her baseline dosing. No alcohol consumption reportedly. No recent fever or chills. Patient has been having increasing frequency of falls. 2 's knowledge she has had no head injury. Patient in the emergency department at [place] did not complain of head pain neck pain back pain abdominal pain pelvic pain complain of bilateral ankle and left foot pain. She was initially placed on BiPAP, however due to worsening respiratory acidosis she was intubated by ED attending for respiratory failure. 05/29: Remains sedated, orally intubated on mechanical ventilation. PEEP increased to +14 05/30: remains intubated and sedated. intermittently agitated. PEEP down to + 12. still febrile. remains hypoxic on 70% fio2, spo2 91%. 05/31: fio2 remains high at 65%. on inhaled epoprostanol. spo2 slightly better at 94%. 06/01: Afebrile. T-max 99.5. Received diuresed 1 mg bumetanide x1 now. Central line placed and arterial line placed. Will be placed in rota prone bed. Continue epoprostenol. No bowel movement since admission. Tube feeds at goal 40 cc an hour per nutrition's recommendations 06/02: Afebrile. Negative fluid balance past 24 hours. We will give 1 dose of acetazolamide today 500 mg.. Transition to rota prone bed. FiO2 down to 60%. Received start an aggressive bowel regimen today. Subjective 06/03: T-max 99.7. No bowel movement. We will give neostigmine 2 mg x1 with atropine at bedside. Received 1 dose of Bumex and acetazolamide today. Continues to tolerate rota prone bed for hours and prone yesterday. FiO2 down to 55%. Objective Vital Signs / I&O: Vital Signs 06/02/18 13:00 06/02/18 14:00 06/02/18 15:00 Temperature 98.6 F 98.6 F Pulse Rate 75 75 79 Respiratory Rate 20 20 20 Blood Pressure 98/53 L 86/47 L 107/58 L Pulse Oximetry 91 L 94 L 91 L 06/02/18 16:00 06/02/18 17:00 06/02/18 18:00 Temperature 99.0 F 99.0 F 99.0 F Pulse Rate 78 78 75 Respiratory Rate 20 20 20 Blood Pressure 109/57 L 111/56 L 113/62 Pulse Oximetry 95 96 96 06/02/18 19:00 06/02/18 19:34 06/02/18 19:35 Temperature 99.0 F Pulse Rate 75 75 Respiratory Rate 20 20 20 Blood Pressure 87/49 L Pulse Oximetry 92 L 96 06/02/18 20:00 06/02/18 21:00 06/02/18 22:00 Temperature 99.0 F 99.0 F 99.3 F Pulse Rate 76 79 79 Respiratory Rate 20 21 20 Blood Pressure 89/52 L 118/60 99/50 L Pulse Oximetry 97 97 97 06/02/18 23:00 06/02/18 23:30 06/02/18 23:32 Temperature 99.5 F Pulse Rate 80 80 Respiratory Rate 20 20 20 Blood Pressure 106/54 L Pulse Oximetry 97 97 06/03/18 00:00 06/03/18 01:00 06/03/18 02:00 Temperature 99.7 F H 99.7 F H 99.5 F Pulse Rate 81 83 82 Respiratory Rate 20 20 20 Blood Pressure 124/65 104/59 L 96/55 L Pulse Oximetry 93 L 95 95 06/03/18 02:44 06/03/18 03:00 06/03/18 03:32 Temperature 99.5 F Pulse Rate 81 80 Respiratory Rate 20 21 20 Blood Pressure 124/65 Pulse Oximetry 96 97 06/03/18 04:00 06/03/18 06:00 06/03/18 07:43 Temperature 99.1 F Pulse Rate 82 79 79 Respiratory Rate 20 20 Blood Pressure 98/53 L Pulse Oximetry 97 87 L 06/03/18 08:00 06/03/18 09:59 06/03/18 10:00 Temperature 99.3 F Pulse Rate 78 78 Respiratory Rate 20 20 Blood Pressure 98/53 L Pulse Oximetry 96 06/03/18 11:25 Temperature Pulse Rate 77 Respiratory Rate 20 Blood Pressure Pulse Oximetry Intake & Output 06/02/18 06/03/18 06/03/18 18:59 06:59 18:59 Intake Total 1667.1 / 1667.1 1360 / 1360 750 / 750 Output Total 2400 / 2400 1300 / 1300 Balance -732.9 / -732.9 60 / 60 750 / 750 Weight 103.5 kg Intake: IV 1289.1 / 1289.1 1350 / 1350 750 / 750 Nimbex Inj 100 MG In NS Inj 240 250 / 250 500 / 500 250 / 250 ML @ 1 MCG/KG/MIN 15.3 mls/hr IV.CONT TITRATE PRN Rx#: [id number] Versed Inj 50 mg In 50 ml @ 2 100 / 100 100 / 100 50 / 50 MG/HR 2 mls/hr IV.CONT TITRATE PRN Rx#:[id number] Diprivan 1000 mg/100 ml Inj 1, 239.1 / 239.1 400 / 400 200 / 200 000 mg In 100 ml @ 5 MCG/KG/MIN 2.94 mls/hr IV.CONT TITRATE PRN Rx#:[id number] Levaquin 750 mg Premix Inj 150 150 / 150 ML @ 100 mls/hr IV.SIG Q24H BILL Rx#:[id number] Magnesium Sulfate 1 gm/D5W 100 200 / 200 ml Premix 100 ML @ 100 mls/hr IV.SIG Q1H BILL Rx#:[id number] fentaNYL 10 mcg/mL Premix Drip 250 / 250 250 / 250 250 / 250 2,500 mcg In 250 ml @ 50 MCG/HR 5 mls/hr IV.SIG TITRATE PRN Rx #:[id number] Flolan (30,000 ng/mL) Neb 75 ML 100 / 100 100 / 100 In NS Inj 25 ML @ 5 mls/hr NEB Q8H BILL Rx#:[id number] Tube Feeding 10 Water Bolus Amount 360 / 360 Output: Urine Amount (Catheter) 2400 / 2400 1300 / 1300 Indwelling Urethral Catheter 2400 / 2400 1300 / 1300 Other: # Bowel Movements 0 0 Result Diagrams: 06/03/18 04:00 06/03/18 04:00 Other Results: Microbiology 05/29/18 18:48 Blood - Peripheral Aerobic Blood Culture - Final No growth in 5 days 05/29/18 18:48 Blood - Peripheral Anaerobic Blood Culture - Final No growth in 5 days 05/29/18 18:43 Blood - Peripheral Aerobic Blood Culture - Final No growth in 5 days 05/29/18 18:43 Blood - Peripheral Anaerobic Blood Culture - Final No growth in 5 days 05/30/18 16:40 Sputum - Endotracheal Gram Stain - Final 05/30/18 16:40 Sputum - Endotracheal Sputum Culture - Final Heavy growth normal respiratory stephanie 05/29/18 17:50 Sputum - Endotracheal Gram Stain - Final 05/29/18 17:50 Sputum - Endotracheal Sputum Culture - Final Heavy growth normal respiratory stephanie 05/30/18 17:00 Urine - Catheterized Urine Streptococcus pneumoniae Antigen ( M - Final Presumptive negative for streptococcus pneumoniae antigen, suggesting no current or recent infection. Infection due to Streptococcus pneumoniae cannot be ruled out since the antigen present in the sample may be below the detection limit of the test. 05/30/18 17:00 Urine - Catheterized Urine Legionella Antigen - Final Presumptive negative for Legionella pneumophila serogroup 1 antigen in urine, suggesting no recent or recurrent infection. Infection due to Legionella cannot be ruled out since other serogroups and species may cause disease, antigen may not be present in urine in early infection, and the level of antigen present in the urine may be below the detection limit of the test. 05/29/18 17:45 Nasal Wash Influenza Types A,B Antigen - Final Negative for FLU A and B antigen Infection due to influenza A or B cannot be ruled out since the antigen present in the sample may be below the detection limit of the test. Imaging: Microbiology 05/29/18 18:48 Blood - Peripheral Aerobic Blood Culture - Final No growth in 5 days 05/29/18 18:48 Blood - Peripheral Anaerobic Blood Culture - Final No growth in 5 days 05/29/18 18:43 Blood - Peripheral Aerobic Blood Culture - Final No growth in 5 days 05/29/18 18:43 Blood - Peripheral Anaerobic Blood Culture - Final No growth in 5 days 05/30/18 16:40 Sputum - Endotracheal Gram Stain - Final 05/30/18 16:40 Sputum - Endotracheal Sputum Culture - Final Heavy growth normal respiratory stephanie 05/29/18 17:50 Sputum - Endotracheal Gram Stain - Final 05/29/18 17:50 Sputum - Endotracheal Sputum Culture - Final Heavy growth normal respiratory stephanie 05/30/18 17:00 Urine - Catheterized Urine Streptococcus pneumoniae Antigen ( M - Final Presumptive negative for streptococcus pneumoniae antigen, suggesting no current or recent infection. Infection due to Streptococcus pneumoniae cannot be ruled out since the antigen present in the sample may be below the detection limit of the test. 05/30/18 17:00 Urine - Catheterized Urine Legionella Antigen - Final Presumptive negative for Legionella pneumophila serogroup 1 antigen in urine, suggesting no recent or recurrent infection. Infection due to Legionella cannot be ruled out since other serogroups and species may cause disease, antigen may not be present in urine in early infection, and the level of antigen present in the urine may be below the detection limit of the test. 05/29/18 17:45 Nasal Wash Influenza Types A,B Antigen - Final Negative for FLU A and B antigen Infection due to influenza A or B cannot be ruled out since the antigen present in the sample may be below the detection limit of the test. Objective Remarks: Gen: middle-aged female, lying in roto-prone bed, critically ill. HEENT: nc. at. perrl. mmm. Neck: No JVD. trachea midline. Left IJ CVL is clean dry and intact. Chest/Pulm: on mech vent, equal chest rise. Diminished breath sounds throughout. CVS: RRR. S1, S2 no S4. Without murmur GI/abdomen: soft, nontender, nondistended. no guarding. Extremities: warm bilaterally, no edema. Left foot with about centimeter laceration with sutures. neuro: RASS -4. Currently on cisatracurium drip Assessment and Plan - Assessment and Plan Plan: Neuro/PSYCH: Chronic Pain Syndrome Chronic Opioid dependence Major depressive disorder NOS Currently on propofol at 50 mcg/kg/min/fentanyl 250 mcg/h and midazolam drips 5 mg an hour for sedation/analgesia while intubated Cisatracurium drip at 3 mcg/kg/min for a [id number] 2 out of 4 - continue home gabapentin 200 mg daily 100 mg at night - goal RASS -2 - oxycodone 20mg po q4h currently being held while on fentanyl drip - on home oxycodone SR 30mg po q12h and 30mg po q4h for breakthrough. currently on hold - frequent neuro checks -Continue sertraline 100 mg daily/home medication for depression Resp: Acute hypoxic and hypercarbic respiratory failure Acute COPD Exacerbation - severe, persistent Acute Community Acquired pneumonia- present on admission Tobaccoism Right upper lobe mass Currently in roto-prone bed - PRVC ventilation rate of 20, tidal volume around 500, I time of 1.2 with a PEEP of 14/FiO2 at 55 % - vent bundle, hob elevated at 30 degrees -Albuterol/ipratropium aerosols every 4 hours with albuterol aerosols every 2 hours as needed dyspnea -Budesonide 0.5/2 1 inhalation twice daily - will veterans' counselor smoking cessation after extubation. - continue inhaled epoprostenol CT thorax when clinically stable. Evaluate right upper lobe mass Follow-up on a.m. chest x-ray and ABG 06/04 1 dose of acetazolamide x1 today. CV: Septic Shock- resolved Type II NSTEMI secondary to demand ischemia Elevated troponins Essential hypertension - no evidence for ACS. will not anticoagulate - trops stable. will stop trending - 2d echo 05/29 preserved LV function, mildly dilated RV. Recently on lisinopril 10 mg daily. Will hold while on vasopressors Norepinephrine drip to maintain mean arterial pressure greater than equal to 65 Renal/: Acute kidney injury- resolving - secondary to shock - continue strict i/o's - off mivf - daily bmp Owens catheter placed while in rota prone bed FEN/GI: Acute protein calorie malnutrition- moderate Constipation - tube feeds with Glucerna 1.5 goal 40 cc an hour. We will decrease to 20 cc now trickle feeds well on rota prone bed - daily bmp, mg, phos - ICU electrolyte protocol - bowel regimen with docusate sodium/senna twice daily, polythene glycol 17 g twice daily, lactulose 30 cc 4 times daily. 1 dose of methylnaltrexone 12 mg subcu x1 now and mineral oil 30 cc x1 now. Mineral oil enema, soapsuds enema and fecal disimpaction ordered. KUB in a.m. 06/04. Dilated large bowel right lower quadrant/transverse colon noted on KUB 06/03. Neostigmine 2 mg IV x1 now with atropine at bedside Heme/ID: Community Acquired Pneumonia- present on admission Septic shock- resolving, present on admission Leukocytosis Microcytic anemia - continue iv abx with levofloxacin - f/u cultures - ID consulted - daily cbc. No indication for transfusion of blood products at this time -Blood cultures, sputum, UA, urine Legionella pneumococcal antigens no growth to date Endo: Diabetes mellitus Holding metformin 500 mg twice daily/home medication - ssi with aspart insulin to maintain euglycemia every 6 hours low regimen TSH was 0.612 uIU/mL MSK Elevated BMI Weight loss encouraged Prophylaxis: - SCDs -Subcutaneous heparin -Famotidine Lines: -Left IJ CVL placed 06/01 -leftt radial arterial line placed 06/01 Critical care time: 35 minutes, exclusive of separately billable procedures.
[2018-06-03] MEDS ORDERED: Sodium Chloride 0.9% 2 ML Flush PRN IV.FLUSH ×2 (13:13→15:53)
--- NOTE | 2018-06-03 13:14 | P.PNID ---
Subjective Remarks: Patient is a 58-year-old female, brought into the hospital for evaluation of generalized weakness, and some lethargy. Patient is taking medication for chronic pain syndrome. She apparently has been very weak recently and on the day of admission when the came home he found the patient on the floor. She was apparently awake and was complaining of generalized weakness. After that she sustained another fall and got a laceration on her left leg. There was mention of complaints of shortness of breath. There was no fever or chills lately no chest pain, no abdominal pain. She did have pain in the ankle and the foot. Evaluation in the ED showed that she was quite lethargic and she ended up getting intubated. Patient has been intubated since. She is currently on the vent, FiO2 at 70% and PEEP of 12. She has been running fevers. Her chest x-ray has shown some interstitial infiltrate and there is a suggestion of an upper lung mass. Sputum culture is pending. Blood cultures are negative so far. Influenza testing is negative. Her initial WBC was 14,000 and is down to 11,000. Lactic acid is normal. Patient is going to have CT of the chest today and that is still pending. She is currently on Levaquin. Infectious disease consultation has been requested to assist with evaluation and treatment. Notes reviewed. D/W RN On the vent. On rotaprone bed since 06/02 FiO2 at 0.5 CXR today better Afebrile. White blood cell count remain elevated. C/S sputum normal resp stephanie Antibiotics: Levaquin Lines: LIJ TLC Past Medical History: Amputation of index finger Diabetes History of COPD History of chronic back pain History of hysterectomy History of lupus Knee injury Shoulder injury Allergies/Adverse Reactions: Allergies penicillin G Allergy (Severe, Verified 05/30/18 11:43) UNKNOWN FROM CHILDHOOD Patient has tolerated cephalosporins in the past Sulfa (Sulfonamide Antibiotics) Allergy (Unknown, Verified 05/28/18 20:13) unknown from childhood Objective Vital Signs 06/02/18 14:00 06/02/18 15:00 06/02/18 16:00 Temperature 98.6 F 99.0 F Pulse Rate 75 79 78 Respiratory Rate 20 20 20 Blood Pressure 86/47 L 107/58 L 109/57 L Pulse Oximetry 94 L 91 L 95 06/02/18 17:00 06/02/18 18:00 06/02/18 19:00 Temperature 99.0 F 99.0 F 99.0 F Pulse Rate 78 75 75 Respiratory Rate 20 20 20 Blood Pressure 111/56 L 113/62 87/49 L Pulse Oximetry 96 96 92 L 06/02/18 19:34 06/02/18 19:35 06/02/18 20:00 Temperature 99.0 F Pulse Rate 75 76 Respiratory Rate 20 20 20 Blood Pressure 89/52 L Pulse Oximetry 96 97 06/02/18 21:00 06/02/18 22:00 06/02/18 23:00 Temperature 99.0 F 99.3 F 99.5 F Pulse Rate 79 79 80 Respiratory Rate 21 20 20 Blood Pressure 118/60 99/50 L 106/54 L Pulse Oximetry 97 97 97 06/02/18 23:30 06/02/18 23:32 06/03/18 00:00 Temperature 99.7 F H Pulse Rate 80 81 Respiratory Rate 20 20 20 Blood Pressure 124/65 Pulse Oximetry 97 93 L 06/03/18 01:00 06/03/18 02:00 06/03/18 02:44 Temperature 99.7 F H 99.5 F Pulse Rate 83 82 81 Respiratory Rate 20 20 20 Blood Pressure 104/59 L 96/55 L Pulse Oximetry 95 95 06/03/18 03:00 06/03/18 03:32 06/03/18 04:00 Temperature 99.5 F 99.1 F Pulse Rate 80 82 Respiratory Rate 21 20 20 Blood Pressure 124/65 98/53 L Pulse Oximetry 96 97 97 06/03/18 06:00 06/03/18 07:43 06/03/18 08:00 Temperature 99.3 F Pulse Rate 79 79 78 Respiratory Rate 20 20 Blood Pressure 98/53 L Pulse Oximetry 87 L 06/03/18 09:59 06/03/18 10:00 06/03/18 11:25 Temperature Pulse Rate 78 77 Respiratory Rate 20 20 Blood Pressure Pulse Oximetry 96 06/03/18 13:05 Temperature Pulse Rate Respiratory Rate 20 Blood Pressure Pulse Oximetry 93 L Intake & Output 06/02/18 06/03/18 06/03/18 18:59 06:59 18:59 Intake Total 1667.1 / 1667.1 1360 / 1360 750 / 750 Output Total 2400 / 2400 1300 / 1300 Balance -732.9 / -732.9 60 / 60 750 / 750 Weight 103.5 kg Intake: IV 1289.1 / 1289.1 1350 / 1350 750 / 750 Nimbex Inj 100 MG In NS Inj 240 250 / 250 500 / 500 250 / 250 ML @ 1 MCG/KG/MIN 15.3 mls/hr IV.CONT TITRATE PRN Rx#: [id number] Versed Inj 50 mg In 50 ml @ 2 100 / 100 100 / 100 50 / 50 MG/HR 2 mls/hr IV.CONT TITRATE PRN Rx#:[id number] Diprivan 1000 mg/100 ml Inj 1, 239.1 / 239.1 400 / 400 200 / 200 000 mg In 100 ml @ 5 MCG/KG/MIN 2.94 mls/hr IV.CONT TITRATE PRN Rx#:[id number] Levaquin 750 mg Premix Inj 150 150 / 150 ML @ 100 mls/hr IV.SIG Q24H BILL Rx#:[id number] Magnesium Sulfate 1 gm/D5W 100 200 / 200 ml Premix 100 ML @ 100 mls/hr IV.SIG Q1H BILL Rx#:[id number] fentaNYL 10 mcg/mL Premix Drip 250 / 250 250 / 250 250 / 250 2,500 mcg In 250 ml @ 50 MCG/HR 5 mls/hr IV.SIG TITRATE PRN Rx #:[id number] Flolan (30,000 ng/mL) Neb 75 ML 100 / 100 100 / 100 In NS Inj 25 ML @ 5 mls/hr NEB Q8H BILL Rx#:[id number] Tube Feeding Water Bolus Amount 360 / 360 Output: Urine Amount (Catheter) 2400 / 2400 1300 / 1300 Indwelling Urethral Catheter 2400 / 2400 1300 / 1300 Other: # Bowel Movements 0 0 05/29/18 18:48 Blood - Peripheral Aerobic Blood Culture - Final No growth in 5 days 05/29/18 18:48 Blood - Peripheral Anaerobic Blood Culture - Final No growth in 5 days 05/29/18 18:43 Blood - Peripheral Aerobic Blood Culture - Final No growth in 5 days 05/29/18 18:43 Blood - Peripheral Anaerobic Blood Culture - Final No growth in 5 days 05/30/18 16:40 Sputum - Endotracheal Gram Stain - Final 05/30/18 16:40 Sputum - Endotracheal Sputum Culture - Final Heavy growth normal respiratory stephanie 05/29/18 17:50 Sputum - Endotracheal Gram Stain - Final 05/29/18 17:50 Sputum - Endotracheal Sputum Culture - Final Heavy growth normal respiratory stephanie Lab - Hematology Results 06/02/18 06/03/18 04:00 04:00 WBC 19.7 H 20.6 H RBC 5.60 H 5.60 H Hgb 11.5 L 11.8 Hct 41.5 40.9 MCV 74.2 L 72.9 L MCH 20.6 L 21.1 L MCHC 27.8 L 28.9 L RDW 22.7 H 23.2 H Plt Count 198 216 MPV 8.6 8.4 Neut % (Auto) 94.0 H 94.2 H Lymph % (Auto) 1.0 L 1.4 L [facility] % (Auto) 4.9 3.8 Eos % (Auto) 0.0 0.1 Baso % (Auto) 0.1 0.5 Neut # (Auto) 18.5 H 19.5 H Lymph # (Auto) 0.2 L 0.3 L [facility] # (Auto) 1.0 H 0.8 Eos # (Auto) 0.0 0.0 Baso # (Auto) 0.0 0.1 WBC Differential . . Differential Comment Auto diff final Auto diff final Lab - Chemistry Results 06/01/18 06/02/18 06/02/18 23:10 04:00 05:16 Sodium 140 Potassium 4.0 Chloride 102 Carbon Dioxide 31.7 Anion Gap 6 BUN 18 Creatinine 0.46 L Estimated GFR Greater than 89 POC Glucose 121 H 113 H Random Glucose 111 H Calcium 9.4 Phosphorus 3.7 Magnesium 1.8 Total Bilirubin 1.0 AST 12 L ALT 20 Alkaline Phosphatase 67 Ammonia Total Protein 6.3 L Albumin 2.6 L 06/02/18 06/02/18 06/03/18 11:48 17:28 00:01 Sodium Potassium Chloride Carbon Dioxide Anion Gap BUN Creatinine Estimated GFR POC Glucose 122 H 130 H 116 H Random Glucose Calcium Phosphorus Magnesium Total Bilirubin AST ALT Alkaline Phosphatase Ammonia Total Protein Albumin 06/03/18 06/03/18 06/03/18 04:00 04:00 05:26 Sodium 140 Potassium 3.6 Chloride 103 Carbon Dioxide 29.3 Anion Gap 8 BUN 15 Creatinine 0.40 L Estimated GFR Greater than 89 POC Glucose 94 Random Glucose 113 H Calcium 9.2 Phosphorus 3.4 Magnesium 1.5 Total Bilirubin 1.2 H AST 10 L ALT 20 Alkaline Phosphatase 81 Ammonia 38 H Total Protein 6.3 L Albumin 2.5 L Imaging: ITS Impressions Cervical Spine CT 05/28/18 20:41 CONCLUSION: 1. Degenerative disc disease basically isolated C5-6 level as detailed above. 2. No fracture. Spinal canal and neural foramina appear to be adequate throughout without cord or nerve root compromise. Head CT 05/28/18 20:41 CONCLUSION: Negative exam. No acute intracranial process, trauma or fracture. . Ankle X-Ray 05/28/18 20:43 CONCLUSION: No evidence of recent bony injury. Diffuse soft tissue prominence. Foot X-Ray 05/28/18 20:43 CONCLUSION: 1. Soft tissue defect/laceration anterior to the ankle. 2. Osseous structures are intact. Abdomen X-Ray 06/03/18 06:00 CONCLUSION: Abnormal bowel gas pattern with dilated loop of colon in the right lower quadrant. I'm not sure whether this is the sigmoid or cecum. Follow-up and correlation suggested. Chest X-Ray 06/03/18 06:00 CONCLUSION: Interval improvement with better aeration. Persistent right upper lobe lung nodule. Physical Exam: GENERAL: sedated on the vent, not in respiratory distress. Currently supine on rotaprone bed SKIN: Warm and dry. Edema hands and feet HEENT: Has facial swelling, clear nasal discharge, orally intubated NECK: Trachea midline. LIJ line ok CARDIOVASCULAR: Regular rate and rhythm. No murmurs, rubs or gallops heard RESPIRATORY: Coarse breath sounds bilaterally upper lung steinberg ABDOMEN: Unable to examne due to bed EXTREMITIES: Has mild pedal edema. No cyanosis NEUROLOGICAL: Sedated. PSYCHIATRIC: Unable to assess. LINE: No evidence of infection Assessment and Plan - Plan Impression Sepsis on admission. Cultures negative. Fever CAP, ?mass in lung - C/S normal stephanie - last CXR better Respiratory failure, requiring a lot of FiO2 but decreasing Known COPD, smoker Renal insufficiency Leukocytosis, persistent Recommendation Follow C/S Continue Levaquin. Follow temperature and WBC. Monitor progress On rotaprone bed Follow CBC
[2018-06-03] MEDS ORDERED: Neostigmine Inj 5 MG/5 ML Syringe IV.PUSH ONE (13:15)
--- NOTE | 2018-06-03 14:40 | P.PNPAL ---
Reason for Visit Reason for visit: a. To assist with evaluation and management of symptoms including: Shortness of breath, pain and physical deconditioning b. To assist medical decision maker(s) with: better understanding of current medical conditions; weighing benefits/burdens of medical treatment options; making medical treatment decisions. Subjective Subjective/Interval History: Follow-up medically necessary for further clarification of goals of medical care. Patient was transferred to MICU on 06/01/18. She is now proned on a Roto prone bed for acute respiratory distress syndrome. Remains intubated. FiO2 currently 50% and PEEP +14. Patient remains on Flolan and O2 saturation currently in the low 90s. Patient is currently on midozalam infusion 810 mg/h, fentanyl infusion at 250 mcg/h, propofol at 50 mcg/kg/min and cisatracurium infusion. Laboratory workup today revealing WBC 20.6, hemoglobin 11.8, hematocrit 40.9, platelet count 216, PT 11.3, INR 1.1, APTT 31.5, potassium 3.6, BUN/creatinine 15/0.40, random glucose 113, AST 10, ALT 20, ammonia 38, total protein 6.3, albumin 2.5. Meeting with patient's Maximus Trace and patient's [id number]. Patient's expressed that he feels patient is not getting better and feels that everything aggressive that is been currently done inclusive of proning patient is definitely against her wishes. Patient spouse states that ever since she was diagnosed with stage 111 cervical cancer and underwent hysterectomy she has repeatedly told her her wishes. Patient`s spouse reiterates that patient has always asked him to promise that he would honor her wishes which include no intubation, no invasive procedures, no tracheostomy and PEG tube placement, no residing in a longterm facility. Patient`s spouse even states that patient has told him that if he would come home and find her on the floor or unconscious, struggling to breathe he should let her and not send her to the hospital or call for medical help. Patient has been very clear explaining her wishes to her . Patient`s spouse states that she knew that she had COPD and she told him that she will not stop smoking cigarettes and she understood that one day she will from COPD complications. Patient`s spouse has decided to forgo aggressive treatment and proceed with compassionate withdrawal from life support. Introduced hospice philosophy and benefits. Patient spouse would like to transition patient into comfort care only through hospice services at time of withdrawal from life support. Case discussed with Dr. Tran. Hospice consult placed. . Family/Friend Interactions: See interval note. . Advance Directives Living Will: Never completed Health Care Surrogate: Never completed Durable Power of Chief Nursing Officer: Never completed Health Care Surrogate Name and Number: HCP: Trace Stroud [phone] home/ Objective Vital Signs: Vital Signs 06/02/18 14:00 06/02/18 15:00 06/02/18 16:00 Temperature 98.6 F 99.0 F Pulse Rate 75 79 78 Respiratory Rate 20 20 20 Blood Pressure 86/47 L 107/58 L 109/57 L Pulse Oximetry 94 L 91 L 95 06/02/18 17:00 06/02/18 18:00 06/02/18 19:00 Temperature 99.0 F 99.0 F 99.0 F Pulse Rate 78 75 75 Respiratory Rate 20 20 20 Blood Pressure 111/56 L 113/62 87/49 L Pulse Oximetry 96 96 92 L 06/02/18 19:34 06/02/18 19:35 06/02/18 20:00 Temperature 99.0 F Pulse Rate 75 76 Respiratory Rate 20 20 20 Blood Pressure 89/52 L Pulse Oximetry 96 97 06/02/18 21:00 06/02/18 22:00 06/02/18 23:00 Temperature 99.0 F 99.3 F 99.5 F Pulse Rate 79 79 80 Respiratory Rate 21 20 20 Blood Pressure 118/60 99/50 L 106/54 L Pulse Oximetry 97 97 97 06/02/18 23:30 06/02/18 23:32 06/03/18 00:00 Temperature 99.7 F H Pulse Rate 80 81 Respiratory Rate 20 20 20 Blood Pressure 124/65 Pulse Oximetry 97 93 L 06/03/18 01:00 06/03/18 02:00 06/03/18 02:44 Temperature 99.7 F H 99.5 F Pulse Rate 83 82 81 Respiratory Rate 20 20 20 Blood Pressure 104/59 L 96/55 L Pulse Oximetry 95 95 06/03/18 03:00 06/03/18 03:32 06/03/18 04:00 Temperature 99.5 F 99.1 F Pulse Rate 80 82 Respiratory Rate 21 20 20 Blood Pressure 124/65 98/53 L Pulse Oximetry 96 97 97 06/03/18 06:00 06/03/18 07:43 06/03/18 08:00 Temperature 99.3 F Pulse Rate 79 79 78 Respiratory Rate 20 20 Blood Pressure 98/53 L Pulse Oximetry 87 L 06/03/18 09:59 06/03/18 10:00 06/03/18 11:25 Temperature Pulse Rate 78 77 Respiratory Rate 20 20 Blood Pressure Pulse Oximetry 96 06/03/18 13:05 Temperature Pulse Rate Respiratory Rate 20 Blood Pressure Pulse Oximetry 93 L Intake & Output 06/02/18 06/03/18 06/03/18 18:59 06:59 18:59 Intake Total 1667.1 / 1667.1 1360 / 1360 1000 / 1000 Output Total 2400 / 2400 1300 / 1300 Balance -732.9 / -732.9 60 / 60 1000 / 1000 Weight 103.5 kg Intake: IV 1289.1 / 1289.1 1350 / 1350 1000 / 1000 Nimbex Inj 100 MG In NS Inj 240 250 / 250 500 / 500 500 / 500 ML @ 1 MCG/KG/MIN 15.3 mls/hr IV.CONT TITRATE PRN Rx#: [id number] Versed Inj 50 mg In 50 ml @ 2 100 / 100 100 / 100 50 / 50 MG/HR 2 mls/hr IV.CONT TITRATE PRN Rx#:[id number] Diprivan 1000 mg/100 ml Inj 1, 239.1 / 239.1 400 / 400 200 / 200 000 mg In 100 ml @ 5 MCG/KG/MIN 2.94 mls/hr IV.CONT TITRATE PRN Rx#:[id number] Levaquin 750 mg Premix Inj 150 150 / 150 ML @ 100 mls/hr IV.SIG Q24H BILL Rx#:[id number] Magnesium Sulfate 1 gm/D5W 100 200 / 200 ml Premix 100 ML @ 100 mls/hr IV.SIG Q1H BILL Rx#:[id number] fentaNYL 10 mcg/mL Premix Drip 250 / 250 250 / 250 250 / 250 2,500 mcg In 250 ml @ 50 MCG/HR 5 mls/hr IV.SIG TITRATE PRN Rx #:[id number] Flolan (30,000 ng/mL) Neb 75 ML 100 / 100 100 / 100 In NS Inj 25 ML @ 5 mls/hr NEB Q8H [facility] Rx#:[id number] Tube Feeding Water Bolus Amount 360 / 360 Output: Urine Amount (Catheter) 2400 / 2400 1300 / 1300 Indwelling Urethral Catheter 2400 / 2400 1300 / 1300 Other: # Bowel Movements 0 0 Physical Exam: CONSTITUTIONAL/GENERAL: This is a critically patient on a Roto prone bed. TUBES/LINES/DRAINS: ETT, central line, OGT, PIV, , Owens catheter, SKIN: No jaundice, rashes, or lesions. Ecchymoses on upper extremities. No wounds seen anteriorly. Skin temperature appropriate. Not diaphoretic. HEAD: Atraumatic. Normocephalic. No disabled facial edema. EYES: Pupils 2 mm, nonreactive. Scleral edema. ENT: Unable to assess hearing. Clear nasal drainage. Orotracheally intubated. Moist oral mucosa NECK: Trachea midline. Supple, nontender. CARDIOVASCULAR: Regular rate and rhythm without murmurs, gallops, or rubs. No JVD. Peripheral pulses symmetric. RESPIRATORY/CHEST: On a Roto prone bed. Remains on mechanical ventilator. Symmetric. Breath sounds diminished in all lung steinberg. GASTROINTESTINAL: Abdomen soft, non-tender, slightly distended. No bowel sounds appreciated. GENITOURINARY: Without palpable bladder distension. Owens catheter in place. MUSCULOSKELETAL: Extremities without clubbing, cyanosis, No joint tenderness or effusion noted. No mottling or clubbing. Generalized edema. LYMPHATICS: Did not assess NEUROLOGICAL: Intubated, sedated. Unresponsive with all 4 extremities. PSYCHIATRIC: Unable to assess. Currently calm . Diagnostic Tests Laboratory: Laboratory Results - last 72 hr 05/31/18 06/01/18 06/01/18 14:16 04:18 04:18 WBC 18.1 H RBC 5.82 H Hgb 12.4 Hct 41.8 MCV 71.8 L MCH 21.3 L MCHC 29.6 L RDW 23.1 H Plt Count 209 MPV 8.3 Neut % (Auto) Lymph % (Auto) [place] % (Auto) Eos % (Auto) Baso % (Auto) Neut # (Auto) Lymph # (Auto) [place] # (Auto) Eos # (Auto) Baso # (Auto) WBC Differential Differential Comment PT INR APTT Puncture Site Right radial Patient Temperature 98.6 O2 Saturation 89 L* ABG pH 7.44 H ABG pCO2 41 ABG pO2 67 ABG HCO3 27 H ABG O2 Content 16.3 ABG Base Excess 3.4 H ABG Methemoglobin 1.5 Connor Test + Hemoglobin 12.9 Carboxyhemoglobin 1.3 O2 Delivery Device Ventilator Vent Setting See comments Inspired O2 65 Critical Value Yes Sodium 138 Potassium 3.8 Chloride 101 Carbon Dioxide 28.9 Anion Gap 8 BUN 22 H Creatinine 0.62 Estimated GFR Greater than 89 POC Glucose Random Glucose 128 H Calcium 9.4 Phosphorus 3.6 Magnesium 1.7 Total Bilirubin AST ALT Alkaline Phosphatase Ammonia Total Protein Albumin 06/01/18 06/01/18 06/02/18 05:15 23:10 04:00 WBC 19.7 H RBC 5.60 H Hgb 11.5 L Hct 41.5 MCV 74.2 L MCH 20.6 L MCHC 27.8 L RDW 22.7 H Plt Count 198 MPV 8.6 Neut % (Auto) 94.0 H Lymph % (Auto) 1.0 L [place] % (Auto) 4.9 Eos % (Auto) 0.0 Baso % (Auto) 0.1 Neut # (Auto) 18.5 H Lymph # (Auto) 0.2 L [place] # (Auto) 1.0 H Eos # (Auto) 0.0 Baso # (Auto) 0.0 WBC Differential . Differential Comment Auto diff final PT INR APTT Puncture Site Right brachial Patient Temperature 98.6 O2 Saturation 91 ABG pH 7.45 H ABG pCO2 42 ABG pO2 71 ABG HCO3 29 H ABG O2 Content 16.2 ABG Base Excess 4.7 H ABG Methemoglobin 1.4 Connor Test Hemoglobin 12.6 Carboxyhemoglobin 1.5 O2 Delivery Device Ventilator Vent Setting Prvc/ac Inspired O2 75 Critical Value No Sodium Potassium Chloride Carbon Dioxide Anion Gap BUN Creatinine Estimated GFR POC Glucose 121 H Random Glucose Calcium Phosphorus Magnesium Total Bilirubin AST ALT Alkaline Phosphatase Ammonia Total Protein Albumin 06/02/18 06/02/18 06/02/18 04:00 05:16 05:50 WBC RBC Hgb Hct MCV MCH MCHC RDW Plt Count MPV Neut % (Auto) Lymph % (Auto) [place] % (Auto) Eos % (Auto) Baso % (Auto) Neut # (Auto) Lymph # (Auto) [place] # (Auto) Eos # (Auto) Baso # (Auto) WBC Differential Differential Comment PT INR APTT Puncture Site Art line Patient Temperature 98.6 O2 Saturation 97 ABG pH 7.42 ABG pCO2 27 L ABG pO2 214 H ABG HCO3 17 L ABG O2 Content 13.6 ABG Base Excess -6.2 L ABG Methemoglobin 1.8 Connor Test Present Hemoglobin 9.6 L Carboxyhemoglobin 0.3 O2 Delivery Device Ventilator Vent Setting Prvc/ac20/500/14peep Inspired O2 Critical Value No Sodium 140 Potassium 4.0 Chloride 102 Carbon Dioxide 31.7 Anion Gap 6 BUN 18 Creatinine 0.46 L Estimated GFR Greater than 89 POC Glucose 113 H Random Glucose 111 H Calcium 9.4 Phosphorus 3.7 Magnesium 1.8 Total Bilirubin 1.0 AST 12 L ALT 20 Alkaline Phosphatase 67 Ammonia Total Protein 6.3 L Albumin 2.6 L 06/02/18 06/02/18 06/03/18 11:48 17:28 00:01 WBC RBC Hgb Hct MCV MCH MCHC RDW Plt Count MPV Neut % (Auto) Lymph % (Auto) [place] % (Auto) Eos % (Auto) Baso % (Auto) Neut # (Auto) Lymph # (Auto) [place] # (Auto) Eos # (Auto) Baso # (Auto) WBC Differential Differential Comment PT INR APTT Puncture Site Patient Temperature O2 Saturation ABG pH ABG pCO2 ABG pO2 ABG HCO3 ABG O2 Content ABG Base Excess ABG Methemoglobin Connor Test Hemoglobin Carboxyhemoglobin O2 Delivery Device Vent Setting Inspired O2 Critical Value Sodium Potassium Chloride Carbon Dioxide Anion Gap BUN Creatinine Estimated GFR POC Glucose 122 H 130 H 116 H Random Glucose Calcium Phosphorus Magnesium Total Bilirubin AST ALT Alkaline Phosphatase Ammonia Total Protein Albumin 06/03/18 06/03/18 06/03/18 04:00 04:00 04:00 WBC 20.6 H RBC 5.60 H Hgb 11.8 Hct 40.9 MCV 72.9 L MCH 21.1 L MCHC 28.9 L RDW 23.2 H Plt Count 216 MPV 8.4 Neut % (Auto) 94.2 H Lymph % (Auto) 1.4 L [place] % (Auto) 3.8 Eos % (Auto) 0.1 Baso % (Auto) 0.5 Neut # (Auto) 19.5 H Lymph # (Auto) 0.3 L [place] # (Auto) 0.8 Eos # (Auto) 0.0 Baso # (Auto) 0.1 WBC Differential . Differential Comment Auto diff final PT 11.3 INR 1.1 APTT 31.5 H Puncture Site Patient Temperature O2 Saturation ABG pH ABG pCO2 ABG pO2 ABG HCO3 ABG O2 Content ABG Base Excess ABG Methemoglobin Connor Test Hemoglobin Carboxyhemoglobin O2 Delivery Device Vent Setting Inspired O2 Critical Value Sodium 140 Potassium 3.6 Chloride 103 Carbon Dioxide 29.3 Anion Gap 8 BUN 15 Creatinine 0.40 L Estimated GFR Greater than 89 POC Glucose Random Glucose 113 H Calcium 9.2 Phosphorus 3.4 Magnesium 1.5 Total Bilirubin 1.2 H AST 10 L ALT 20 Alkaline Phosphatase 81 Ammonia Total Protein 6.3 L Albumin 2.5 L 06/03/18 06/03/18 06/03/18 04:00 05:26 13:06 WBC RBC Hgb Hct MCV MCH MCHC RDW Plt Count MPV Neut % (Auto) Lymph % (Auto) [place] % (Auto) Eos % (Auto) Baso % (Auto) Neut # (Auto) Lymph # (Auto) [place] # (Auto) Eos # (Auto) Baso # (Auto) WBC Differential Differential Comment PT INR APTT Puncture Site Patient Temperature O2 Saturation ABG pH ABG pCO2 ABG pO2 ABG HCO3 ABG O2 Content ABG Base Excess ABG Methemoglobin Connor Test Hemoglobin Carboxyhemoglobin O2 Delivery Device Vent Setting Inspired O2 Critical Value Sodium Potassium Chloride Carbon Dioxide Anion Gap BUN Creatinine Estimated GFR POC Glucose 94 118 H Random Glucose Calcium Phosphorus Magnesium Total Bilirubin AST ALT Alkaline Phosphatase Ammonia 38 H Total Protein Albumin Result Diagrams: 06/03/18 04:00 06/03/18 04:00 Microbiology: Microbiology 05/29/18 18:48 Aerobic Blood Culture - Final Blood - Peripheral No growth in 5 days Anaerobic Blood Culture - Final No growth in 5 days 05/29/18 18:43 Aerobic Blood Culture - Final Blood - Peripheral No growth in 5 days Anaerobic Blood Culture - Final No growth in 5 days 05/30/18 16:40 Gram Stain - Final Sputum - Endotracheal Sputum Culture - Final Heavy growth normal respiratory stephanie 05/29/18 17:50 Gram Stain - Final Sputum - Endotracheal Sputum Culture - Final Heavy growth normal respiratory stephanie Imaging: Cervical Spine CT 05/28/18 20:41 CONCLUSION: 1. Degenerative disc disease basically isolated C5-6 level as detailed above. 2. No fracture. Spinal canal and neural foramina appear to be adequate throughout without cord or nerve root compromise. Head CT 05/28/18 20:41 CONCLUSION: Negative exam. No acute intracranial process, trauma or fracture. . Ankle X-Ray 05/28/18 20:43 CONCLUSION: No evidence of recent bony injury. Diffuse soft tissue prominence. Foot X-Ray 05/28/18 20:43 CONCLUSION: 1. Soft tissue defect/laceration anterior to the ankle. 2. Osseous structures are intact. Abdomen X-Ray 06/03/18 06:00 CONCLUSION: Abnormal bowel gas pattern with dilated loop of colon in the right lower quadrant. I'm not sure whether this is the sigmoid or cecum. Follow-up and correlation suggested. Chest X-Ray 06/03/18 06:00 CONCLUSION: Interval improvement with better aeration. Persistent right upper lobe lung nodule. Procedures: 05/28/18-orotracheal intubation 06/01/18-left IJ central line placement 06/01/18-left radial A-line placement Assessment and Plan - Disease Oriented Problem List (1) Community acquired pneumonia (2) Respiratory failure with hypoxia and hypercapnia (3) COPD exacerbation (4) Acute renal failure (ARF) (5) Diabetes mellitus - Symptom Scale (1) Shortness of breath 0-10 Scale: Unable to quantify Comment: History of COPD on supplemental home O2, pneumonia/bronchitis. Chest x -ray showing pneumonia. Currently intubated on mechanical ventilation. (2) Pain 0-10 Scale: Unable to quantify Comment: History of chronic back pain and chronic opioid dependence. (3) Physical deconditioning 0-10 Scale: Unable to quantify Comment: Progressive. History of multiple falls at home. Patient requiring oxygen all the times, and not able to tolerate activity due to shortness of breath and increased weakness. Pertinent Non-Medical Issues: Psychosocial: Patient was born and raised in [place], [place]. She moved to [place] in 1989. Patient was to your current since 2001. Patient his 3 adult children 2 daughters and 1 son who live up in [place]. Her mother is 96 years old and lives in [place]. Patient is a housewife. Spiritual: Patient is Mandaen and her has requested visits from [facility] Legal: Never completed advanced directives Ethical issues impacting care: None identified at this time . Important Contacts: -Trace Stroud [phone] home/[phone] Code Status: No Code DNR Plan: PLAN: Legal decision maker: Patient is currently intubated, sedated on mechanical ventilation. It is unknown whether patient will regain capacity to participate in decision-making. According to [place] statute, patient's Trace Stroud will serve as patient's healthcare proxy for medical decision making. Goals: Patient's has decided to forego any further aggressive treatment and proceed with compassionately withdrawing patient from life support. Patient spouse would like to transition patient to comfort care only through hospice services. CODE STATUS: No code DNR SYMPTOMS: * Shortness of breath: Patient has a history of COPD and is on supplemental oxygen at home. Currently intubated on mechanical ventilation. Chest x-ray showing pneumonia. Patient is on antibiotics, duo nebs, steroids. Now on a Roto prone bed with continuous inhaled Flolan. FiO2 currently 50%, PEEP +14 with O2 saturation in the high 80s up to 90%. * Pain: Patient has history of chronic back pain and has chronic opioid dependence. Patient takes oxycodone SR 30 mg p.o. every 12 hours and 30 mg p.o. every 4 hours PRN at home. Currently on a fentanyl infusion. Currently not showing any signs of pain. Continue to monitor for pain. * Physical deconditioning: Progressive. Patient has been reportedly falling at home. Patient requiring oxygen all the times, and not able to tolerate activity due to shortness of breath and increased weakness. Was found on the floor at home and she sustained another fall on the day she presented to the emergency room. Recommending physical therapy if goals are aggressive. Palliative care will continue to follow the patient during hospital course as condition evolves, to assist patient/decision-maker with understanding of their medical conditions, weighing benefits/burdens of treatment options, for clarification of goals of treatment. Additionally will assist with any symptoms of palliative concern Attestation Attestation: To help prompt me to consider important information that might be impacting today's encounter and assessment, information from prior notes written by myself or my colleagues may have been "brought forward" into today's note. My signature on this note, however, is an attestation that I personally performed the exam, history, and/or decision-making noted today, and, unless otherwise indicated, the interactions with patient, family, and staff as well as the review of records all occurred today. I also attest that the listed assessment and stated plan reflect my best clinical judgment today based on the combination of historical information, prior notes, and today's exam/ interactions. When time spent is documented, it refers only to time spent today by the signer, or if indicated, combined time spent today by collaborating physician/nurse practitioner.
[2018-06-03] MEDS ORDERED: Acetaminophen 650 MG Supp RECTAL PRN (15:16)
[2018-06-03] MEDS ORDERED: Hyoscyamine Inj 0.5 MG/ML Ampul IV.PUSH PRN (15:16)
[2018-06-03] MEDS ORDERED: Morphine Inj 4 MG/ML Vial IV.PUSH PRN (15:16)
--- NOTE | 2018-06-03 15:38 | P.PNPAL ---
Met with patient's in conference room and reviewed healthcare proxy status, family wishes, concerns of any other family members. He states she has 2 daughters and 1 son. He has spoken to all 3 of them in the last 48 hours. One daughter has been estranged for many years, is a nurse, and understands the ramifications and agrees with the plan of care. Her son lives in [facility] and does not wish to see his mother in this condition. She has one remaining daughter in [place] who has been updated by the and has no noted objection per my discussion with him. He completed exhibit A to document her previously stated wishes for no aggressive interventions to include no procedures, surgeries, no intubations or any life saving measures. He stated that she would be horrified and angry to find herself on a ventilator on a rota prone bed and he wishes to withdraw life support via compassionate withdrawal as soon as possible. Exhibits B and C were completed with patient's , Dr. Gutierrez and Dr. Tran after thorough discussion. This was discussed with the RN, Zully with plan to transfer patient back to standard bed prior to withdrawal for patient comfort and to treat her in a manner which would be consistent with her goals of care. .
[2018-06-03] MEDS ORDERED: Hyoscyamine Inj 0.5 MG/ML Ampul IV.PUSH ONE (15:45)
[2018-06-03] MEDS ORDERED: fentaNYL Citrate Inj 100 MCG/2 ML Ampul IV.PUSH ONE ×2 (15:45→16:00)
[2018-06-03] MEDS ORDERED: Midazolam Inj 5 MG/ML 1 ML Vial IV.PUSH ONE ×2 (15:45→16:00)
[2018-06-03 16:43] VITALS: BP 112/65
[2018-06-03] MEDS: Morphine Inj 4 MG/ML Vial IV.PUSH SCH ×3 (18:32→22:21)
[2018-06-03] MEDS: Morphine Inj 4 MG/ML Vial IV.PUSH PRN ×2 (20:21→23:07)
[2018-06-03] MEDS ORDERED: Sodium Chloride 0.9% 2 ML Flush BID IV.FLUSH SCH ×2 (21:00)
[2018-06-03 21:29] VITALS: PULSE 114; RESP 31; TEMP 99; O2SAT 72
== END 2018-06-03 23:03 | disposition expired ==
LOC: PHED 20:09 → PHEDA 22:48 → HCVI 05-29 03:05 → HIMC 06-01 17:50
PROVIDERS: ADMIT Family Medicine; ATTEND Family Medicine